=== PATIENT | female | born 1975 | race Caucasian/White ===

== ENCOUNTER 2016-07-23 17:01 | Emergency (ER) | payer SELFPAY ==
[2016-07-23 18:03] LABS: Hematocrit 47 % (35-47); Hemoglobin 15.4 g/dl (12.0-16.0); Mean Corpuscular HGB Conc 33 g/dl (31-36); Mean Corpuscular Hemoglobin 28 pg (27-31); Mean Corpuscular Volume 86 fL (80-97); Mean Platelet Volume 9 um3 (7.4-10.4); Red Blood Count 5.49 10^6/ul (4.0-5.4); Red Cell Distribution Width 13 % (10.5-15)
--- NOTE | 2016-07-23 18:13 | RAD ---
HISTORY: Headache COMPARISONS: June 15, 2010 TECHNIQUE: Multiple contiguous axial CT scans were obtained of the head without intravenous contrast. FINDINGS: HEMORRHAGE/INFARCT: There is no hemorrhage or acute infarct. MASSES/SHIFT: There is no mass or shift. EXTRA-AXIAL SPACES: There are no extra-axial fluid collections. SULCI AND VENTRICLES: The sulci and ventricles are normal in size and position for the patient's stated age. CEREBRUM: There are no focal parenchymal abnormalities. BRAINSTEM: There are no focal parenchymal abnormalities. CEREBELLUM: There are no focal parenchymal abnormalities. VESSELS: The vessels are grossly normal. PARANASAL SINUSES: The paranasal sinuses are clear. ORBITS: The orbits are unremarkable. BONES AND SOFT TISSUE: No bone or soft tissue abnormalities are noted. OTHER: None IMPRESSION: NO ACUTE INTRACRANIAL PATHOLOGY.
[2016-07-23 18:19] LABS: Albumin 4.6 g/dL (3.2-5.2); BUN/Creatinine Ratio 18.9 (8-20); Calcium 9.5 mg/dL (8.6-10.3); EGFR African American 112.4 (>60); EGFR Non-African American 87.4 (>60); Globulin 3.1 g/dL (2-4); Potassium 3.9 mmol/L (3.5-5.0); Total Bilirubin 0.4 mg/dL (0.2-1.0); Total Protein 7.7 g/dL (6.4-8.9)
[2016-07-23] MEDS ORDERED: Ketorolac INJ* 30 MG/ML 1 ML VIAL IV ONE (18:59)
[2016-07-23] MEDS ORDERED: Metoclopramide IV* 5 MG/ML 2 ML VIAL IV ONE (19:00)
[2016-07-23] MEDS ORDERED: SUMAtriptan SQ* 6 MG/0.5 ML VIAL SUBCUT ONE (19:00)
[2016-07-23 19:15] VITALS: BP 116/68
--- NOTE | 2016-07-23 22:44 | ED ---
Danielle Ann Rebecca, scribed for Alexandre Kinney MD on 07/23/16 at 1738 . Headache - HPI Summary HPI Summary: Pt is a 41 y/o F who presents to ED c/o CAO. CAO began suddenly at 1600, 1 hour ago, and has been constant since onset. CAO is in the frontal region with radiation into the neck. Pain is currently severe, ranked 10/10 and characterized as sharp. Sx aggravated and alleviated by nothing, unchanged by Sudafed and ASA. Additionally c/o rhinorrhea, vomiting (5x), dizziness and neck stiffness. Denies nasal congestion, photophobia, weakness, numbness and dental pain. No FHx seizures, migraines or headaches. Past records reviewed, Head CT in 2013 was unremarkable. - History Of Current Complaint Chief Complaint: EDHeadache Stated Complaint: HEADACHE Hx Obtained From: Patient Hx Last Menstrual Period: 06/13/15 Onset/Duration: Gradual Onset, Started hours ago - 1 hour ago Initially Headache Was: Initial Pain Scale(0-10)= - 10, Severe Currently Pain Is: Current Pain Scale(0-10)= - 10, Severe Timing: Constant Character: Sharp Location of Headache: Frontal Radiates to: Neck Aggravating Factor: Nothing Allevating Factors: Nothing Associated Signs And Symptoms: Dizziness, Vomiting - 5x, Neck Stiffness, Other ( Noted In Comments) - rhinorrhea - Allergies/Home Medications Allergies/Adverse Reactions: Allergies Allergy/AdvReac Type Severity Reaction Status Date / Time Ciprofloxacin [From Cipro] Allergy Severe Difficulty Verified 07/23/16 17:08 Breathing Hydrocodone Allergy Severe Difficulty Verified 07/23/16 17:08 Breathing Sulfa Drugs Allergy Severe Difficulty Verified 07/23/16 17:08 Breathing Amoxicillin Allergy Intermediate Rash Verified 07/23/16 17:08 Morphine Allergy Headache Verified 07/23/16 17:08 PMH/Surg Hx/FS Hx/Imm Hx Endocrine/Hematology History: Reports: Other Endocrine/Hematological Disorders - psoriasis Denies: Hx Anticoagulant Therapy, Hx Blood Disorders, Hx Diabetes, Hx Thyroid Disease, Hx Unexplained Bleeding Cardiovascular History: Denies: Hx Congestive Heart Failure, Hx Hypertension Respiratory History: Denies: Hx Asthma, Hx Chronic Obstructive Pulmonary Disease (COPD) GI History: Reports: Hx Gastroesophageal Reflux Disease, Hx Ulcer - gerd, Other GI Disorders - GERD History: Reports: Other Problems/Disorders - Hx OF KIDNEY STONES, OVARIAN CYSTS Denies: Hx Renal Disease Musculoskeletal History: Denies: Hx Rheumatoid Arthritis, Hx Osteoporosis Psychiatric History: Denies: Hx of Violent Episodes Against Others - Surgical History Surgery Procedure, Year, and Place: 2001 gall bladder removed, t&a - Immunization History Date of Tetanus Vaccine: PT STATES THAT SHE IS UNSURE Date of Influenza Vaccine: NONE Infectious Disease History: No Infectious Disease History: Denies: Hx Hepatitis, Hx Human Immunodeficiency Virus (HIV), History Other Infectious Disease, Traveled Outside the [place] in Last 30 Days - Family History Known Family History: Positive: None, Unknown, Diabetes - Social History Alcohol Use: Rare Hx Substance Use: No Substance Use Type: Reports: None Hx Tobacco Use: Yes Smoking Status (MU): Light Every Day Tobacco Smoker Type: Cigarettes Amount Used/How Often: 3 cigs day Have You Smoked in the Last Year: Yes Review of Systems Negative: Photophobia Positive: Nasal Discharge, Other - Denies nasal congestion. Negative: Dental Pain Positive: Vomiting - 5x Positive: Arthralgia - Neck stiffness Neurological: Other - Dizziness Positive: Headache - Frontal. Negative: Weakness, Numbness All Other Systems Reviewed And Are Negative: Yes Physical Exam - Summary Physical Exam Summary: General: Comfortable, pleasant, alert HEENT: Moist mucosa, no sinus percussion tenderness, on obvious large dental caries or gum swelling. Neck: soft, supple, no adenopathy, no edema, no nuchal rigidity Heart: S1, S2, RRR, no murmurs, rubs, or gallops Lungs: Clear to auscultation, breathing comfortable, no wheezes or rales Abdominal: Soft, flat, nontender Extremities: No edema, no calf tenderness, Negative kernig and brudzinski Neuro: Alert and oriented x 3, CN II-XII intact Psych: Logical, coherent Triage Information Reviewed: Yes Vital Signs On Initial Exam: Initial Vitals Temp Pulse Resp BP Pulse Ox 97.2 F 67 18 137/94 100 07/23/16 17:02 07/23/16 17:02 07/23/16 17:02 07/23/16 17:02 07/23/16 17:02 Vital Signs Reviewed: Yes Diagnostics - Vital Signs Vital Signs Temp Pulse Resp BP Pulse Ox 07/23/16 17:02 97.2 F 67 18 137/94 100 - Laboratory Lab Results: Lab Results 07/23/16 07/23/16 Range/Units 17:50 17:50 WBC 6.0 (3.5-10.8) 10^3/ul RBC 5.49 H (4.0-5.4) 10^6/ul Hgb 15.4 (12.0-16.0) g/dl Hct 47 (35-47) % MCV 86 (80-97) fL MCH 28 (27-31) pg MCHC 33 (31-36) g/dl RDW 13 (10.5-15) % Plt Count 148 L (150-450) 10^3/ul MPV 9 (7.4-10.4) um3 Neut % (Auto) 60.3 (38-83) % Lymph % (Auto) 30.7 (25-47) % [place] % (Auto) 5.7 (1-9) % Eos % (Auto) 2.1 (0-6) % Baso % (Auto) 1.2 (0-2) % Absolute Neuts (auto) 3.6 (1.5-7.7) 10^3/ul Absolute Lymphs (auto) 1.8 (1.0-4.8) 10^3/ul Absolute Monos (auto) 0.3 (0-0.8) 10^3/ul Absolute Eos (auto) 0.1 (0-0.6) 10^3/ul Absolute Basos (auto) 0.1 (0-0.2) 10^3/ul Absolute Nucleated RBC 0 10^3/ul Nucleated RBC % 0.1 Sodium 137 (133-145) mmol/L Potassium 3.9 (3.5-5.0) mmol/L Chloride 102 (101-111) mmol/L Carbon Dioxide 29 (22-32) mmol/L Anion Gap 6 (2-11) mmol/L BUN 14 (6-24) mg/dL Creatinine 0.74 (0.51-0.95) mg/dL Est GFR ( Amer) 112.4 (>60) Est GFR (Non-Af Amer) 87.4 (>60) BUN/Creatinine Ratio 18.9 (8-20) Glucose 135 H (70-100) mg/dL Calcium 9.5 (8.6-10.3) mg/dL Total Bilirubin 0.40 (0.2-1.0) mg/dL AST 22 (13-39) U/L ALT 24 (7-52) U/L Alkaline Phosphatase 91 (34-104) U/L Total Protein 7.7 (6.4-8.9) g/dL Albumin 4.6 (3.2-5.2) g/dL Globulin 3.1 (2-4) g/dL Albumin/Globulin Ratio 1.5 (1-3) Result Diagrams: 07/23/16 17:50 07/23/16 17:50 Lab Statement: Any lab studies that have been ordered have been reviewed, and results considered in the medical decision making process. - CT Brain CT CT Interpretation: No Acute Changes - NO ACUTE INTRACRANIAL PATHOLOGY. CT Interpretation Completed By: Radiologist Headache Course/Dx - Course Assessment/Plan: Frontal CAO, associated with nausea. She has no meningeal signs on exam. We considered subarachnoid hemorrhage, aneurysm, CVA, meningitis, but there is no clinical evidence to support these possibilities. She has no fever. Work up is totally normal, including CT. We do not see any signs of dental infection or sinusitis as well. - Diagnoses Differential Diagnosis/HQI/PQRI: Meningitis, Migraine, Subarachnoid Hemorrhage, Viral Syndrome Provider Diagnoses: Pharyngitis, Headache Discharge - Discharge Plan Condition: Good Disposition: HOME Prescriptions: Butalb/Acetamin/Caff TAB* [Fioricet TAB*] 1 tab PO Q6H PRN #20 tab MDD 4 PRN Reason: Headache Patient Education Materials: General Headache (ED) Referrals: Urban Gleason MD [Primary Care Provider] - 1 Day The documentation as recorded by the Danielle sanchez Rebecca accurately reflects the service I personally performed and the decisions made by , Alexandre Kinney MD.
== END 2016-07-23 19:14 | disposition home or self-care (01) ==
LOC: ED 17:01
DX: R42 Dizziness and giddiness (principal); J02.9 Acute pharyngitis, unspecified; R11.10 Vomiting, unspecified; F17.210 Nicotine dependence, cigarettes, uncomplicated; R51 Headache
CPT/HCPCS: 36415; 70450; 80053; 85025; 96374; 96375; 99282; J1885; J2765; J3030

== ENCOUNTER 2016-11-19 12:12 | Emergency (ER) | payer OTHER ==
[2016-11-19 12:21] VITALS: BP 136/64
--- NOTE | 2016-11-19 12:31 | UC ---
UC General HPI - HPI Summary HPI Summary: complaint of bump behind her ear and found a bump 2 days a go then found another bump on her neck then this morning found a bump on the top of ner head feesl more fatigied slgith left ear pain slight nasal congestion denies sore throat and cough slight headache last night and this morning relieved by ibuprofen - History of Current Complaint Hx Obtained From: Patient <Francy Brown - Last Filed: 11/19/16 13:00> <Margie Sidhu - Last Filed: 11/20/16 08:27> - History of Current Complaint Chief Complaint: [place] Stated Complaint: LUMPS ON HEAD AND NECK Time Seen by Provider: 11/19/16 12:19 - Allergy/Home Medications Allergies/Adverse Reactions: Allergies Allergy/AdvReac Type Severity Reaction Status Date / Time Ciprofloxacin [From Cipro] Allergy Severe Difficulty Verified 07/23/16 17:08 Breathing Hydrocodone Allergy Severe Difficulty Verified 07/23/16 17:08 Breathing Sulfa Drugs Allergy Severe Difficulty Verified 07/23/16 17:08 Breathing Amoxicillin Allergy Intermediate Rash Verified 07/23/16 17:08 Morphine Allergy Headache Verified 07/23/16 17:08 PMH/Surg Hx/FS Hx/Imm Hx Previously Healthy: No - psoriasis Other History Of: Negative For: Anticoagulant Therapy - Surgical History Surgical History: Yes Surgery Procedure, Year, and Place: 2001 gall bladder removed, t&a - Family History Known Family History: Positive: None, Unknown, Diabetes Negative: Cardiac Disease - Social History Occupation: Employed Full-time Lives: With Family Alcohol Use: Occasionally Substance Use Type: None Smoking Status (MU): Light Every Day Tobacco Smoker Type: Cigarettes Amount Used/How Often: 3 cigs day Have You Smoked in the Last Year: Yes Household Exposure Type: Cigarettes Cessation Counseling: Patient Advised to Stop <Francy Brown - Last Filed: 11/19/16 13:00> Review of Systems Constitutional: Negative Skin: Rash - chronic psoriasis throughout her body Eyes: Negative ENT: Ear Ache Respiratory: Negative Cardiovascular: Negative Gastrointestinal: Negative Genitourinary: Negative Motor: Negative Neurovascular: Negative Musculoskeletal: Negative Neurological: Headache Psychological: Negative All Other Systems Reviewed And Are Negative: Yes <Francy Brown - Last Filed: 11/19/16 13:00> Physical Exam Triage Information Reviewed: Yes Appearance: No Pain Distress, Well-Nourished, Obese Vital Signs: Initial Vital Signs Temp 96.9 F 11/19/16 12:17 Pulse 72 11/19/16 12:17 Resp 18 11/19/16 12:17 BP 136/64 11/19/16 12:17 Pulse Ox 100 11/19/16 12:17 Vital Signs Reviewed: Yes Eyes: Positive: Conjunctiva Clear ENT: Positive: Pharyngeal erythema, Nasal congestion, TM bulging - left. Negative: TM red Neck: Positive: Enlarged Nodes @ - left side of neck - enlarged lymph nodes posterior cervical chain-tender Respiratory: Positive: Lungs clear, Normal breath sounds, No respiratory distress, No accessory muscle use Cardiovascular: Positive: RRR, No Murmur, Pulses Normal Abdomen Description: Positive: Nontender, Soft, Distended Bowel Sounds: Positive: Present Musculoskeletal: Positive: No Edema Psychological Exam: Normal Skin: Positive: Other - psoriasis covering her arms legs and scalp left side of head - [id number] area of tenderness slight tenderness no induration <Francy Brown - Last Filed: 11/19/16 13:00> Vital Signs: Initial Vital Signs Temp 96.9 F 11/19/16 12:17 Pulse 72 11/19/16 12:17 Resp 18 11/19/16 12:17 BP 136/64 11/19/16 12:17 Pulse Ox 100 11/19/16 12:17 <Margie Sidhu - Last Filed: 11/20/16 08:27> Course/Dx - Course Course Of Treatment: exam completed. will start flonase for eustachion tube dysfunction. swollen tender lymph nodes on left side of neck - appears to be getting a URI, will followup with PCP - Differential Dx - Multi-Symptom Provider Diagnoses: lymphadenopathy- left posterior chain. left eustachion tube dysfunction. URI <Francy Brown - Last Filed: 11/19/16 13:00> Discharge <Francy Brown - Last Filed: 11/19/16 13:00> <Margie Sidhu - Last Filed: 11/20/16 08:27> - Discharge Plan Condition: Stable Disposition: HOME Prescriptions: Fluticasone NASAL SPRAY 50MCG* [Flonase NASAL SPRAY 50MCG*] 2 spray BOTH NARES DAILY #1 btl Patient Education Materials: Lymphadenopathy (ED) Forms: *Work Release Referrals: Urban Gleason MD [Primary Care Provider] - Additional Instructions: Please start flonase as directed you have some swollen lymph nodes in your neck these should improve as the infection you have resolves Increase fluids and rest Take acetaminophen or ibuprofen for fever or pain Please review your discharge instructions. If your symptoms do not improve please call your primary care provider or return to urgent care. Your blood pressure is pre-hypertensive reading. Please contact your primary care provider within 1 day -4 weeks for further evaluation Attestation Statement User Type: Provider - I was available for consult. This patient was seen by the advanced practice provider. The patient was not presented to, seen by, or examined by me.-Iftikhar <Margie Sidhu - Last Filed: 11/20/16 08:27>
== END 2016-11-19 13:10 | disposition home or self-care (01) ==
LOC: UCEAST 12:12
DX: L40.9 Psoriasis, unspecified (principal); H69.82 Other specified disorders of Eustachian tube, left ear; R59.1 Generalized enlarged lymph nodes; Z72.0 Tobacco use
CPT/HCPCS: 87651; 99212; G0463

== ENCOUNTER 2017-02-02 04:03 | Inpatient (IN) | payer SELFPAY ==
[2017-02-02] MEDS ORDERED: NS 0.9% 1000 ML* 1,000 ML IV ONE (04:48)
[2017-02-02] MEDS ORDERED: HYDROmorphone* 1 MG/ML 1 ML SYR IV SLOW PU ONE ×2 (05:07→06:17)
[2017-02-02] MEDS ORDERED: Ondansetron INJ* 2 MG/ML VIAL IV ONE (05:08)
[2017-02-02 05:17] LABS: Hematocrit 44 % (35-47); Hemoglobin 14.3 g/dl (12.0-16.0); Mean Corpuscular HGB Conc 33 g/dl (31-36); Mean Corpuscular Hemoglobin 29 pg (27-31); Mean Corpuscular Volume 88 fL (80-97); Mean Platelet Volume 9 um3 (7.4-10.4); Red Blood Count 4.98 10^6/ul (4.0-5.4); Red Cell Distribution Width 14 % (10.5-15); White Blood Count 6.1 10^3/ul (3.5-10.8)
[2017-02-02 05:28] LABS: ALT 45 U/L (7-52); AST 34 U/L (13-39); Albumin 3.7 g/dL (3.2-5.2); Alkaline Phosphatase 71 U/L (34-104); Anion Gap 4 mmol/L (2-11); BUN/Creatinine Ratio 14.7 (8-20); Blood Urea Nitrogen 11 mg/dL (6-24); C Reactive Protein < 1.00 mg/L (< 5.00); CO2 Carbon Dioxide 27 mmol/L (22-32); Calcium 8.8 mg/dL (8.6-10.3); Chloride 105 mmol/L (101-111); EGFR African American 110.6 (>60); Globulin 2.6 g/dL (2-4); Glucose 128 mg/dL (70-100); Lipase 30 U/L (11.0-82.0); Sodium 136 mmol/L (133-145); Total Protein 6.3 g/dL (6.4-8.9)
[2017-02-02 05:30] LABS: Urine Bacteria Absent (Absent); Urine Bilirubin Negative (Negative); Urine Glucose Negative (Negative); Urine Nitrite Negative (Negative)
[2017-02-02] MEDS ORDERED: cefTRIAXone(*) 1 GM in NS 0.9% 50 ML* 50 ML IVPB ONE (06:17)
--- NOTE | 2017-02-02 06:45 | ED ---
Mian Ann SooYoung, scribed for Dirk Delgado MD on 02/02/17 at 0436 . GI/ HPI - HPI Summary HPI Summary: A 41 y/o F presents to ED with c/o diffuse abd pain onset for past few days. Pt saw her PCP four days ago for a severe UTI that she might have had for almost a month. Pt taking Macrobid. Associated sx: fever, chills, n/v. Alleviating factors: Tylenol, mildly. Denies PMHx DM, blood thinners. Does not think she's . - History of Current Complaint Chief Complaint: EDUrogenitalProblems Time Seen by Provider: 02/02/17 04:22 Stated Complaint: KIDNEY PAIN Hx Obtained From: Patient Hx Last Menstrual Period: 2016, not reg periods Onset/Duration: Started Days Ago, Still Present Timing: Constant Severity: Severe Current Severity: Severe Pain Intensity: 10 - out of 10 Location of Pain: Diffuse Associated Signs and Symptoms: Positive: Nausea, Vomiting, Fever, Chills - Allergy/Home Medications Allergies/Adverse Reactions: Allergies Allergy/AdvReac Type Severity Reaction Status Date / Time Ciprofloxacin [From Cipro] Allergy Severe Difficulty Verified 07/23/16 17:08 Breathing Hydrocodone Allergy Severe Difficulty Verified 07/23/16 17:08 Breathing Sulfa Drugs Allergy Severe Difficulty Verified 07/23/16 17:08 Breathing Amoxicillin Allergy Intermediate Rash Verified 07/23/16 17:08 Morphine Allergy Headache Verified 07/23/16 17:08 PMH/Surg Hx/FS Hx/Imm Hx Previously Healthy: No Endocrine/Hematology History: Reports: Other Endocrine/Hematological Disorders - psoriasis Denies: Hx Anticoagulant Therapy, Hx Blood Disorders, Hx Diabetes, Hx Thyroid Disease, Hx Unexplained Bleeding Cardiovascular History: Denies: Hx Congestive Heart Failure, Hx Hypertension Respiratory History: Denies: Hx Asthma, Hx Chronic Obstructive Pulmonary Disease (COPD) GI History: Reports: Hx Gastroesophageal Reflux Disease, Hx Ulcer - gerd, Other GI Disorders - GERD History: Reports: Other Problems/Disorders - Hx OF KIDNEY STONES, OVARIAN CYSTS Denies: Hx Renal Disease Musculoskeletal History: Denies: Hx Rheumatoid Arthritis, Hx Osteoporosis Psychiatric History: Denies: Hx of Violent Episodes Against Others - Surgical History Surgery Procedure, Year, and Place: 2001 gall bladder removed, t&a - Immunization History Date of Tetanus Vaccine: PT STATES THAT SHE IS UNSURE Date of Influenza Vaccine: NONE Infectious Disease History: No Infectious Disease History: Denies: Hx Hepatitis, Hx Human Immunodeficiency Virus (HIV), History Other Infectious Disease, Traveled Outside the [place] in Last 30 Days - Family History Known Family History: Positive: Diabetes Negative: Cardiac Disease - Social History Occupation: Employed Full-time Lives: With Family Alcohol Use: Occasionally Hx Substance Use: No Substance Use Type: Reports: None Hx Tobacco Use: Yes Smoking Status (MU): Light Every Day Tobacco Smoker Type: Cigarettes Amount Used/How Often: 3 cigs day Have You Smoked in the Last Year: Yes Review of Systems Positive: Fever, Chills Positive: Abdominal Pain, Vomiting, Nausea All Other Systems Reviewed And Are Negative: Yes Physical Exam - Summary Physical Exam Summary: The patient is well-nourished in no acute distress and in no acute pain. The skin is warm and dry and skin color reflects adequate perfusion. Rash indicative of psoriasis on face, body. HEENT: The head is normocephalic and atraumatic. The pupils are equal and reactive. The conjunctivae are clear and without drainage. Nares are patent and without drainage. Mouth reveals moist mucous membranes and the throat is without erythema and exudate. The external ears are intact. The ear canals are patent and without drainage. The tympanic membranes are intact. Neck is supple with full range of motion and non-tender. There are no carotid bruits. There is no neck vein distension. Respiratory: Chest is non-tender. Lungs are clear to auscultation and breath sounds are symmetrical and equal. Cardiovascular: Hear is regular rate and rhythm. There is no murmur or rub auscultated. Pitting edema. Pulses are symmetrical and equal. Abdomen: The abdomen is soft, obese and diffusely tender. R CVA tenderness. There are normal bowel sounds heard in all four quadrants and there is no organomegaly palpated. Musculoskeletal: There is no back pain noted. Extremities are non-tender with full range of motion. There is good capillary refill. Pitting edema. Neurological: Patient is alert and oriented to person, place and time. The patient has symmetrical motor strength in all four extremities. Cranial nerves are grossly intact. Deep tendon reflexes are symmetrical and equal in all four extremities. Psychiatric: The patient has an appropriate affect and does not exhibit any anxiety or depression. Triage Information Reviewed: Yes Vital Signs On Initial Exam: Initial Vitals Temp Pulse Resp BP Pulse Ox 96.7 F 71 16 125/67 95 02/02/17 04:07 02/02/17 04:07 02/02/17 04:07 02/02/17 04:07 02/02/17 04:07 Vital Signs Reviewed: Yes - Lili Coma Scale Coma Scale Total: 15 Diagnostics - Vital Signs Vital Signs Temp Pulse Resp BP Pulse Ox 02/02/17 04:30 63 96 02/02/17 04:07 96.7 F 71 16 125/67 95 - Laboratory Lab Results: Lab Results 02/02/17 02/02/17 02/02/17 Range/Units 05:01 05:01 05:01 WBC 6.1 (3.5-10.8) 10^3/ul RBC 4.98 (4.0-5.4) 10^6/ul Hgb 14.3 (12.0-16.0) g/dl Hct 44 (35-47) % MCV 88 (80-97) fL MCH 29 (27-31) pg MCHC 33 (31-36) g/dl RDW 14 (10.5-15) % Plt Count 182 (150-450) 10^3/ul MPV 9 (7.4-10.4) um3 Neut % (Auto) 56.0 (38-83) % Lymph % (Auto) 30.0 (25-47) % [place] % (Auto) 7.6 (1-9) % Eos % (Auto) 4.1 (0-6) % Baso % (Auto) 2.3 H (0-2) % Absolute Neuts (auto) 3.4 (1.5-7.7) 10^3/ul Absolute Lymphs (auto) 1.8 (1.0-4.8) 10^3/ul Absolute Monos (auto) 0.5 (0-0.8) 10^3/ul Absolute Eos (auto) 0.3 (0-0.6) 10^3/ul Absolute Basos (auto) 0.1 (0-0.2) 10^3/ul Absolute Nucleated RBC 0 10^3/ul Nucleated RBC % 0.1 Sodium 136 (133-145) mmol/L Potassium 4.0 (3.5-5.0) mmol/L Chloride 105 (101-111) mmol/L Carbon Dioxide 27 (22-32) mmol/L Anion Gap 4 (2-11) mmol/L BUN 11 (6-24) mg/dL Creatinine 0.75 (0.51-0.95) mg/dL Est GFR ( Amer) 110.6 (>60) Est GFR (Non-Af Amer) 86.0 (>60) BUN/Creatinine Ratio 14.7 (8-20) Glucose 128 H (70-100) mg/dL Lactic Acid (0.5-2.0) mmol/L Calcium 8.8 (8.6-10.3) mg/dL Total Bilirubin 0.40 (0.2-1.0) mg/dL AST 34 (13-39) U/L ALT 45 (7-52) U/L Alkaline Phosphatase 71 (34-104) U/L C-Reactive Protein < 1.00 (< 5.00) mg/L Total Protein 6.3 L (6.4-8.9) g/dL Albumin 3.7 (3.2-5.2) g/dL Globulin 2.6 (2-4) g/dL Albumin/Globulin Ratio 1.4 (1-3) Lipase 30 (11.0-82.0) U/L Beta HCG, Quant < 0.60 mIU/mL Urine Color Yellow Urine Appearance Cloudy Urine pH 5.0 (5-9) Ur Specific [place] 1.027 (1.010-1.030) Urine Protein Negative (Negative) Urine Ketones Negative (Negative) Urine Blood Negative (Negative) Urine Nitrate Negative (Negative) Urine Bilirubin Negative (Negative) Urine Urobilinogen Negative (Negative) Ur Leukocyte Esterase 3+ H (Negative) Urine WBC (Auto) 3+(>20/hpf) H (Absent) Urine RBC (Auto) 3+(>10/hpf) H (Absent) Ur Squamous Epith Cells Present H (Absent) Calcium Oxalate Crystal Present H (Absent) Urine Bacteria Absent (Absent) Urine Glucose Negative (Negative) Urine Ascorbic Acid * H (Negative) 02/02/17 Range/Units 05:01 WBC (3.5-10.8) 10^3/ul RBC (4.0-5.4) 10^6/ul Hgb (12.0-16.0) g/dl Hct (35-47) % MCV (80-97) fL MCH (27-31) pg MCHC (31-36) g/dl RDW (10.5-15) % Plt Count (150-450) 10^3/ul MPV (7.4-10.4) um3 Neut % (Auto) (38-83) % Lymph % (Auto) (25-47) % [place] % (Auto) (1-9) % Eos % (Auto) (0-6) % Baso % (Auto) (0-2) % Absolute Neuts (auto) (1.5-7.7) 10^3/ul Absolute Lymphs (auto) (1.0-4.8) 10^3/ul Absolute Monos (auto) (0-0.8) 10^3/ul Absolute Eos (auto) (0-0.6) 10^3/ul Absolute Basos (auto) (0-0.2) 10^3/ul Absolute Nucleated RBC 10^3/ul Nucleated RBC % Sodium (133-145) mmol/L Potassium (3.5-5.0) mmol/L Chloride (101-111) mmol/L Carbon Dioxide (22-32) mmol/L Anion Gap (2-11) mmol/L BUN (6-24) mg/dL Creatinine (0.51-0.95) mg/dL Est GFR ( Amer) (>60) Est GFR (Non-Af Amer) (>60) BUN/Creatinine Ratio (8-20) Glucose (70-100) mg/dL Lactic Acid 1.9 (0.5-2.0) mmol/L Calcium (8.6-10.3) mg/dL Total Bilirubin (0.2-1.0) mg/dL AST (13-39) U/L ALT (7-52) U/L Alkaline Phosphatase (34-104) U/L C-Reactive Protein (< 5.00) mg/L Total Protein (6.4-8.9) g/dL Albumin (3.2-5.2) g/dL Globulin (2-4) g/dL Albumin/Globulin Ratio (1-3) Lipase (11.0-82.0) U/L Beta HCG, Quant mIU/mL Urine Color Urine Appearance Urine pH (5-9) Ur Specific [place] (1.010-1.030) Urine Protein (Negative) Urine Ketones (Negative) Urine Blood (Negative) Urine Nitrate (Negative) Urine Bilirubin (Negative) Urine Urobilinogen (Negative) Ur Leukocyte Esterase (Negative) Urine WBC (Auto) (Absent) Urine RBC (Auto) (Absent) Ur Squamous Epith Cells (Absent) Calcium Oxalate Crystal (Absent) Urine Bacteria (Absent) Urine Glucose (Negative) Urine Ascorbic Acid (Negative) Result Diagrams: 02/02/17 05:01 02/02/17 05:01 Lab Statement: Any lab studies that have been ordered have been reviewed, and results considered in the medical decision making process. Re-Evaluation - Re-Evaluation 1 Re-Evaluation Time: 06:16 Change: Unchanged Comment: Discussing results with pt. Pt still in pain. On re-exam, pt's pain is more focalized to R flank. She states PMHx: kidney stones, without prev surgery. GIGU Course/Dx - Course Course Of Treatment: Pt is a 41 y/o F presenting to ED with c/o diffuse abd pain onset for past few days. Pt saw her PCP four days ago for a severe UTI that she might have had for almost a month. Pt taking Macrobid. Associated sx: fever, chills, n/v. Alleviating factors: Tylenol, mildly. Denies DM, blood thinners. Does not think she's . Pt given fluids, Zofran, Dilauded in ED. Bloodwork is without any significant abnormality. UA is positive for UTI as expected. SO to Dr. Carter at shift change pending CT result. - Diagnoses Differential Diagnoses - Female: Renal Colic Provider Diagnoses: Right flank pain, UTI (urinary tract infection) Discharge - Discharge Plan Condition: Stable Disposition: OTHER Discharge Disposition Comment: SO to Dr. Carter at shift change pending CT result Referrals: Urban Gleason MD [Primary Care Provider] - The documentation as recorded by the Mian sanchez SooYoung accurately reflects the service I personally performed and the decisions made by me, Dirk Delgado MD.
[2017-02-02] MEDS ORDERED: Fluconazole 100 MG TAB* TAB PO ONE (07:47)
--- NOTE | 2017-02-02 07:56 | RAD ---
INDICATION: Right flank pain COMPARISON: CT April 08, 2016 TECHNIQUE: Noncontrast axial source images were acquired from the level hemidiaphragms to the symphysis pubis as part of CT imaging for renal stone. Lung bases: The lung bases are clear. Liver: The liver is enlarged with findings of hepatic steatosis. Noncontrast imaging shows no evidence of a hepatic mass or ductal dilatation. Gallbladder: Cholecystectomy. Spleen: The spleen is normal in size. The noncontrast CT appearance is normal. Pancreas: Noncontrast imaging shows no pancreatic mass or ductal dilitation. Adrenal glands: No masses are identified. Kidneys/Bladder: There is no evidence of urolithiasis or CT evidence of hydronephrosis. Noncontrast imaging shows no evidence of a renal mass. There are some limitations due to patient size with resultant artifact from the patient touching the side of the gantry The bladder is unremarkable. Adenopathy: There is no evidence of intraperitoneal or retroperitoneal adenopathy. Evaluation is limited without oral contrast. Fluid collections: There are no free or localized fluid collections. Vessels: The aorta and iliac vessels are normal in caliber. There are no significant atherosclerotic changes. The IVC appears normal Pelvic organs: The uterus and adnexa appear normal GI tract: Evaluation of the bowel is limited without oral contrast. The stomach, small bowel, and lower GI tract appear grossly normal. There are no obstructive findings. The appendix is visualized and appears normal. Soft tissues: No soft tissue abnormalities of the extraperitoneal abdomen or pelvis are identified. Osseous structures: There are no acute osseous findings. IMPRESSION: NO CT EVIDENCE OF UROLITHIASIS. NORMAL APPENDIX. NO MASS OR INFLAMMATORY CHANGE.
[2017-02-02] MEDS ORDERED: HYDROmorphone* 1 MG/ML 1 ML SYR IV ONE (08:41)
[2017-02-02] MEDS ORDERED: Morphine INJ* 2 MG/ML 1 ML SYRINGE IV PRN (09:14)
[2017-02-02] MEDS ORDERED: Acetaminophen TAB* 325 MG PO PRN (09:14)
--- NOTE | 2017-02-02 09:21 | ED ---
IPatricia Edward, scribed for Miller Carter MD on 02/02/17 at 0710 . Progress - Progress Note Progress Note: Signed out from Dr. Delgado. Pending CT results. ABD/PEL CT SHOWS NO CT EVIDENCE OF UROLITHIASIS. NORMAL APPENDIX. NO MASS OR INFLAMMATORY CHANGE. Discussed case with Dr. Olmstead @ 08:45. Re-Evaluation - Re-Evaluation 1 Re-Evaluation Time: 06:16 Change: Unchanged Comment: Discussing results with pt. Pt still in pain. On re-exam, pt's pain is more focalized to R flank. She states PMHx: kidney stones, without prev surgery. 2 Re-Evaluation Time: 07:43 Comment: Discussed lab and urine results. Pt states her pain is at a 6/10 more on her R side. Pt states she has a yeast infection. Course/Dx - Course Course Of Treatment: DISCUSSED RESULTS WITH PATIENT/. PT HAS ALLERGIES TO CIPRO, SULFA, AND AMOX WHICH LIMITS CHOICE OF PO ABX. PAIN HAS REQUIRED 3 DOSE OF IV DILAUIDID. ADMIT HOSPITALIST FOR FAILED OUT PT PO ABX TREATMENT, IV ABX, PAIN CONTROL. PELVIC EXAM DONE WITH POSITIVE VAGINAL DISCHARGE. ADMIT HOSPITALIST STABLE. - Diagnoses Provider Diagnoses: Right flank pain, UTI (urinary tract infection), Vaginitis The documentation as recorded by the Patricia sanchez Edward accurately reflects the service I personally performed and the decisions made by me, Miller Carter MD.
[2017-02-02] MEDS: NS 0.9% 1000 ML* 1,000 ML IV SCH (10:56)
[2017-02-02] MEDS ORDERED: Nystatin TOP POWDER* 15 GM BTL TOPICAL SCH (11:00)
[2017-02-02] MEDS: Nystatin TOP POWDER* 15 GM BTL TOPICAL SCH ×2 (13:38→21:02)
[2017-02-02] MEDS: Ondansetron INJ* 2 MG/ML VIAL IV PRN (13:39)
--- NOTE | 2017-02-02 16:13 | HP ---
CC: Dr. Urban Gleason * HISTORY AND PHYSICAL: DATE OF ADMISSION: 02/02/17 PRIMARY CARE PROVIDER: Dr. Urban Gleason ATTENDING PHYSICIAN: Dr. Dolly Smith * (dictated by Gaby Jansen NP). CHIEF COMPLAINT: Right flank pain. HISTORY OF PRESENT ILLNESS: Ms. Rutherford is a 41-year-old female with a past medical history significant for psoriasis, GERD, kidney stones and obesity, who presents to the emergency room today with complaints of right flank pain, vaginal discharge, fever, chills, nausea, vomiting. The patient states that she was seen by her primary care provider 4 days ago, was diagnosed with urinary tract infection and was started on Macrobid. The patient states that yesterday she started developing a right flank pain and left flank pressure. She also noticed a vaginal discharge that started yesterday. The patient reports that her fever was at a max of 100.1. She denies any chest pain, shortness of breath. She also reports some diarrhea last night. She also has a rash under both breasts and in her abdominal folds. Due to the patient continuing to not feel well after being started on antibiotics, she presented to the emergency room for further evaluation of her symptoms. While in the emergency room, the patient was given a dose of IV ceftriaxone, Diflucan, IV Dilaudid for pain, Zofran, and normal saline. She had a pelvic exam and cultures were sent as the patient has a history of Gardnerella BV in the past. Hospitalists were asked to evaluate the patient for admission. PAST MEDICAL HISTORY: 1. Psoriasis. 2. GERD. 3. Kidney stones. 4. Obesity. PAST SURGICAL HISTORY: 1. Status post cholecystectomy in 2001. 2. Status post tonsillectomy and adenoidectomy. HOME MEDICATIONS: Include: 1. Triamcinolone 0.1% topical twice daily to areas of body with psoriasis except for the face. 2. Omeprazole 40 mg oral daily at bedtime. 3. Ibuprofen 600 mg oral every 6 hours as needed for pain. 4. Flonase 2 sprays to both nares daily. 5. Acetaminophen 1000 mg oral every 6 hours as needed for fever or pain. ALLERGIES: CIPRO causes gasping for air, HYDROCODONE causes gasping for air, SULFA causes gasping for air, AMOXICILLIN causes a rash and leg swelling, MORPHINE causes a headache, and TORADOL causes worsening of psoriasis. FAMILY HISTORY: The patient denies any family history of coronary artery disease. The patient's father and brother have a history of type 2 diabetes mellitus. The patient has a family history of stomach cancer on both her maternal and paternal side. She has maternal aunts, one with breast cancer and one with cervical cancer. SOCIAL HISTORY: The patient is a current smoker, smoking approximately 3 cigarettes a day. She has a 23-year smoking history and reports that she has cut down over the years. The patient occasionally drinks alcohol. She denies recreational drug use. She is employed full-time. Her parents Tomy and Vanessa Rutherford will be her surrogate decision makers in the event she is unable to make decisions for herself. REVIEW OF SYSTEMS: I performed a 14-point review of systems. All the pertinent positives and negatives are mentioned in the history of present illness. The remaining review of systems are negative. PHYSICAL EXAMINATION GENERAL APPEARANCE: The patient is alert, pleasant, appears to be in no acute distress. VITAL SIGNS: Temperature 96.7, heart rate 82, respiratory rate 18, O2 sat 96% on room air, blood pressure 98/66. HEENT: Normocephalic, atraumatic. Pupils are equal and reactive to light. Extraocular movements are intact. RESPIRATORY: There is no accessory muscle use and the lungs are clear to auscultation bilateral. CARDIOVASCULAR: Regular rate and rhythm. S1 and S2 present. There is no murmurs, rubs, or gallops heard. ABDOMEN: Enlarged, soft, tender in the lower quadrants and suprapubic area. There are bowel sounds present x4. The patient also has right CVA tenderness. EXTREMITIES: There is trace bilateral lower extremity edema. DP and PT pulses are 2+ and symmetric. MUSCULOSKELETAL: There is no clubbing or cyanosis noted. The patient exhibits good strength in all extremities. NEUROLOGIC: The patient is alert and oriented x4. Cranial nerves II through XII are grossly intact. PSYCHOLOGICAL: The patient is calm and cooperative. SKIN: The patient has multiples areas of psoriasis plaques including her face, arms, legs, and torso. The patient also has a yeast-like rash under her breast and in her abdominal folds and groin. DIAGNOSTIC STUDIES/LABORATORY DATA: Sodium 136, potassium 4.0, chloride 105, CO2 of 27, BUN 11, creatinine 0.75, glucose 128. White blood cell count 6.1, hemoglobin 14.3, hematocrit 44, and platelet count 182. Urinalysis is significant for 3+ leukocyte esterase, 3+ rbc's, 3+ wbc's, squamous epithelial cells present, calcium oxalate crystals present, and urine ascorbic acid present. Abdomen and pelvis CT from today. Radiologist impression; no CT evidence of urolithiasis. Normal appendix. No mass or inflammatory changes. IMPRESSION: Ms. Rutherford is a 41-year-old female with past medical history significant for psoriasis, gastroesophageal reflux disease, kidney stones, and obesity, who presents to the emergency room with complaints of right flank pain after failing outpatient treatment for urinary tract infection. She will be admitted as an observation for urinary tract infection. ASSESSMENT/PLAN: 1. Urinary tract infection. Urine cultures currently pending. She was on Macrobid for outpatient treatment. For now, we will place the patient on IV ceftriaxone. 2. Vaginal discharge. The patient has been given a dose of Diflucan for a possible yeast infection. The patient had vaginal cultures obtained while in the emergency room as she has been positive for Gardnerella BV in the past. 3. Gastroesophageal reflux disease. The patient will be continued on her home omeprazole. 4. Psoriasis. The patient will be continued on her home triamcinolone. 5. Obesity. The patient's BMI is 54. 6. Fluids, electrolytes, and nutrition. Regular diet. 7. Code status. Full code. 8. DVT prophylaxis. The patient is at a low risk and will be encouraged to ambulate. 9. Disposition. Observation. TIME SPENT: Time for this admission was approximately 60 minutes and greater than half of that was spent with the patient discussing medications, past medical history, and the events leading up to her arrival today and performing a physical examination. The case has been reviewed with the attending, Dr. Smith, who agrees with the plan of care. Reviewed by NING AVENDANO 02/02/17 1936 [id number]/[facility] #: [id number] MTDElissa
[2017-02-02] MEDS ORDERED: metroNIDAZOLE TAB* 250 MG PO ONE (17:27)
[2017-02-02] MEDS: HYDROmorphone* 1 MG/ML 1 ML SYR IV SLOW PU PRN ×2 (17:45→22:27)
--- NOTE | 2017-02-02 19:16 | PN ---
Hospitalist Progress Note Vaginal culture shows Trichomoniasis. Pt notified about the culture results. Pt given a 1 time dose of metronidazole 2 g.
[2017-02-02] MEDS: Omeprazole CAP* 20 MG PO SCH (20:52)
[2017-02-02] MEDS: TRIAMCINOLONE 0.1% TOPICAL SCH (20:54)
[2017-02-02] MEDS ORDERED: Triamcinolone 0.1% CREAM (NF) 15 GM TUBE TOPICAL SCH (21:00)
[2017-02-02] MEDS ORDERED: TRIAMCINOLONE 0.1% TOPICAL SCH (21:00)
[2017-02-03] MEDS: NS 0.9% 1000 ML* 1,000 ML IV SCH (02:45)
[2017-02-03] MEDS: HYDROmorphone* 1 MG/ML 1 ML SYR IV SLOW PU PRN ×4 (02:49→19:53)
[2017-02-03] MEDS ORDERED: cefTRIAXone(*) 1 GM in NS 0.9% 50 ML* 50 ML IVPB SCH (09:00)
[2017-02-03] MEDS: Ondansetron INJ* 2 MG/ML VIAL IV PRN ×2 (09:23→19:54)
[2017-02-03] MEDS: Fluticasone NASAL SPRAY 50MCG* 16 gm SPRAY BTL BOTH NARES SCH (09:24)
[2017-02-03] MEDS: TRIAMCINOLONE 0.1% TOPICAL SCH ×2 (09:26→21:50)
[2017-02-03] MEDS: Nystatin TOP POWDER* 15 GM BTL TOPICAL SCH ×3 (09:26→21:51)
--- NOTE | 2017-02-03 12:29 | PN ---
Subjective Date of Service: 02/03/17 Interval History: No change in dysuria. Itching on back started after 2nd dose of ceftriaxone. Objective Active Medications: Acetaminophen (Tylenol Tab*) 650 mg PO Q6H PRN PRN Reason: pain/fever Doxycycline Hyclate (Vibramycin Cap(*)) 100 mg PO BID [facility] Fluticasone Propionate (Flonase Nasal Benedict 50mcg*) 2 spray BOTH NARES DAILY [facility] Last Admin: 02/03/17 09:24 Dose: 2 spray Hydromorphone HCl (Dilaudid Iv*) 1 mg IV SLOW PU Q4H PRN PRN Reason: PAIN Last Admin: 02/03/17 09:20 Dose: 1 mg Sodium Chloride (Ns 0.9% 1000 Ml*) 1,000 mls @ 100 mls/hr IV PER RATE [facility] Last Admin: 02/03/17 02:45 Dose: 100 mls/hr Ibuprofen (Motrin Tab*) 600 mg PO Q6H PRN PRN Reason: PAIN Metronidazole (Flagyl Tab*) 500 mg PO QID [facility] Nystatin (Nystatin Top Powder*) 1 applic TOPICAL TID [facility] Last Admin: 02/03/17 09:26 Dose: 1 applic Omeprazole (Prilosec Cap*) 40 mg PO BEDTIME [facility] Last Admin: 02/02/17 20:52 Dose: 40 mg Ondansetron HCl (Zofran Inj*) 4 mg IV Q6H PRN PRN Reason: NAUSEA Last Admin: 02/03/17 09:23 Dose: 4 mg Triamcinolone Acetonide (Kenolog 0.1% Oint(Nf)) 1 applic TOPICAL BID [facility] Last Admin: 02/03/17 09:26 Dose: 1 applic Vital Signs 02/02/17 02/02/17 02/02/17 13:37 14:37 16:21 Temperature 98.3 F Pulse Rate 69 Respiratory 14 12 16 Rate Blood Pressure 112/56 (mmHg) O2 Sat by Pulse 97 Oximetry 02/02/17 02/02/17 02/02/17 17:45 20:45 21:00 Temperature 98.4 F Pulse Rate 69 Respiratory 14 16 18 Rate Blood Pressure 128/54 (mmHg) O2 Sat by Pulse 97 Oximetry 02/02/17 02/02/17 02/03/17 22:27 23:45 02:49 Temperature 98.2 F Pulse Rate 69 Respiratory 16 17 16 Rate Blood Pressure 103/57 (mmHg) O2 Sat by Pulse 97 Oximetry 02/03/17 02/03/17 02/03/17 03:49 05:10 07:27 Temperature 97.9 F 97.6 F Pulse Rate 71 59 Respiratory 16 16 23 Rate Blood Pressure 125/67 120/60 (mmHg) O2 Sat by Pulse 98 100 Oximetry 02/03/17 02/03/17 02/03/17 08:00 09:20 10:20 Temperature Pulse Rate Respiratory 14 14 14 Rate Blood Pressure (mmHg) O2 Sat by Pulse Oximetry Oxygen Devices in Use Now: None Appearance: Alert, sitting up in bed. Mvoing her legs, looks uncomfortable. Neck: NL Appearance and Movements; NL JVP, No Thyroid Enlargement, Masses Respiratory: Symmetrical Chest Expansion and Respiratory Effort, Clear to Auscultation, Clear to Percussion Cardiovascular: NL Sounds; No Murmurs; No JVD, RRR, No Edema, - Extremities: No Edema, No Clubbing, Cyanosis Skin: No Nodules or Sclerosis - innumerable small psoriatic plaques trunk, abd, and all extremities and face. Rash on face back and arms seems redder than on trunk and legs. Neurological: Alert and Oriented x 3, NL Sensation Result Diagrams: 02/02/17 05:01 02/02/17 05:01 Additional Lab and Data: Lab Results 02/02/17 02/02/17 02/02/17 Range/Units 05:01 05:01 05:01 WBC 6.1 (3.5-10.8) 10^3/ul RBC 4.98 (4.0-5.4) 10^6/ul Hgb 14.3 (12.0-16.0) g/dl Hct 44 (35-47) % MCV 88 (80-97) fL MCH 29 (27-31) pg MCHC 33 (31-36) g/dl RDW 14 (10.5-15) % Plt Count 182 (150-450) 10^3/ul MPV 9 (7.4-10.4) um3 Neut % (Auto) 56.0 (38-83) % Lymph % (Auto) 30.0 (25-47) % [place] % (Auto) 7.6 (1-9) % Eos % (Auto) 4.1 (0-6) % Baso % (Auto) 2.3 H (0-2) % Absolute Neuts (auto) 3.4 (1.5-7.7) 10^3/ul Absolute Lymphs (auto) 1.8 (1.0-4.8) 10^3/ul Absolute Monos (auto) 0.5 (0-0.8) 10^3/ul Absolute Eos (auto) 0.3 (0-0.6) 10^3/ul Absolute Basos (auto) 0.1 (0-0.2) 10^3/ul Absolute Nucleated RBC 0 10^3/ul Nucleated RBC % 0.1 Sodium 136 (133-145) mmol/L Potassium 4.0 (3.5-5.0) mmol/L Chloride 105 (101-111) mmol/L Carbon Dioxide 27 (22-32) mmol/L Anion Gap 4 (2-11) mmol/L BUN 11 (6-24) mg/dL Creatinine 0.75 (0.51-0.95) mg/dL Est GFR ( Amer) 110.6 (>60) Est GFR (Non-Af Amer) 86.0 (>60) BUN/Creatinine Ratio 14.7 (8-20) Glucose 128 H (70-100) mg/dL Lactic Acid (0.5-2.0) mmol/L Calcium 8.8 (8.6-10.3) mg/dL Total Bilirubin 0.40 (0.2-1.0) mg/dL AST 34 (13-39) U/L ALT 45 (7-52) U/L Alkaline Phosphatase 71 (34-104) U/L C-Reactive Protein < 1.00 (< 5.00) mg/L Total Protein 6.3 L (6.4-8.9) g/dL Albumin 3.7 (3.2-5.2) g/dL Globulin 2.6 (2-4) g/dL Albumin/Globulin Ratio 1.4 (1-3) Lipase 30 (11.0-82.0) U/L Beta HCG, Quant < 0.60 mIU/mL Urine Color Yellow Urine Appearance Cloudy Urine pH 5.0 (5-9) Ur Specific [place] 1.027 (1.010-1.030) Urine Protein Negative (Negative) Urine Ketones Negative (Negative) Urine Blood Negative (Negative) Urine Nitrate Negative (Negative) Urine Bilirubin Negative (Negative) Urine Urobilinogen Negative (Negative) Ur Leukocyte Esterase 3+ H (Negative) Urine WBC (Auto) 3+(>20/hpf) H (Absent) Urine RBC (Auto) 3+(>10/hpf) H (Absent) Ur Squamous Epith Cells Present H (Absent) Calcium Oxalate Crystal Present H (Absent) Urine Bacteria Absent (Absent) Urine Glucose Negative (Negative) Urine Ascorbic Acid * H (Negative) 02/02/17 Range/Units 05:01 WBC (3.5-10.8) 10^3/ul RBC (4.0-5.4) 10^6/ul Hgb (12.0-16.0) g/dl Hct (35-47) % MCV (80-97) fL MCH (27-31) pg MCHC (31-36) g/dl RDW (10.5-15) % Plt Count (150-450) 10^3/ul MPV (7.4-10.4) um3 Neut % (Auto) (38-83) % Lymph % (Auto) (25-47) % [place]ett % (Auto) (1-9) % Eos % (Auto) (0-6) % Baso % (Auto) (0-2) % Absolute Neuts (auto) (1.5-7.7) 10^3/ul Absolute Lymphs (auto) (1.0-4.8) 10^3/ul Absolute Monos (auto) (0-0.8) 10^3/ul Absolute Eos (auto) (0-0.6) 10^3/ul Absolute Basos (auto) (0-0.2) 10^3/ul Absolute Nucleated RBC 10^3/ul Nucleated RBC % Sodium (133-145) mmol/L Potassium (3.5-5.0) mmol/L Chloride (101-111) mmol/L Carbon Dioxide (22-32) mmol/L Anion Gap (2-11) mmol/L BUN (6-24) mg/dL Creatinine (0.51-0.95) mg/dL Est GFR ( Amer) (>60) Est GFR (Non-Af Amer) (>60) BUN/Creatinine Ratio (8-20) Glucose (70-100) mg/dL Lactic Acid 1.9 (0.5-2.0) mmol/L Calcium (8.6-10.3) mg/dL Total Bilirubin (0.2-1.0) mg/dL AST (13-39) U/L ALT (7-52) U/L Alkaline Phosphatase (34-104) U/L C-Reactive Protein (< 5.00) mg/L Total Protein (6.4-8.9) g/dL Albumin (3.2-5.2) g/dL Globulin (2-4) g/dL Albumin/Globulin Ratio (1-3) Lipase (11.0-82.0) U/L Beta HCG, Quant mIU/mL Urine Color Urine Appearance Urine pH (5-9) Ur Specific [place] (1.010-1.030) Urine Protein (Negative) Urine Ketones (Negative) Urine Blood (Negative) Urine Nitrate (Negative) Urine Bilirubin (Negative) Urine Urobilinogen (Negative) Ur Leukocyte Esterase (Negative) Urine WBC (Auto) (Absent) Urine RBC (Auto) (Absent) Ur Squamous Epith Cells (Absent) Calcium Oxalate Crystal (Absent) Urine Bacteria (Absent) Urine Glucose (Negative) Urine Ascorbic Acid (Negative) Assess/Plan/Problems-Billing Assessment: - Patient Problems (1) UTI (urinary tract infection) Current Visit: Yes Status: Acute Comment: C&S showed mixed radha, but clinical pcituyre c/w UTI. In view of many allergies will treat with doxy. (2) Trichomonal infection Current Visit: Yes Status: Acute Comment: Metronidazole rx'd. (3) Tobacco abuse Current Visit: Yes Status: Acute Code(s): Z72.0 - TOBACCO USE SNOMED Code( s): 142041567 Comment: Pt advised to quit smoking and avoid second hand smoke. (4) Psoriasis Current Visit: Yes Status: Acute Code(s): L40.9 - PSORIASIS, UNSPECIFIED SNOMED Code(s): 2542731 Comment: Pt using triamcinolone cream as originally prescribed by a load planner in [place]. (5) Morbid obesity Current Visit: Yes Status: Acute Code(s): E66.01 - MORBID (SEVERE) OBESITY DUE TO EXCESS CALORIES SNOMED Code(s): 781296670 Comment: BMI 43.4.
[2017-02-03] MEDS: Ibuprofen TAB* 600 MG PO PRN (12:45)
[2017-02-03] MEDS: DOXYcycline CAP(*) 100 MG PO SCH ×2 (12:45→21:50)
[2017-02-03] MEDS: metroNIDAZOLE TAB* 250 MG PO SCH ×3 (12:45→21:50)
[2017-02-03] MEDS: Omeprazole CAP* 20 MG PO SCH (21:49)
[2017-02-04] MEDS: HYDROmorphone* 1 MG/ML 1 ML SYR IV SLOW PU PRN ×7 (00:04→23:01)
[2017-02-04] MEDS: NS 0.9% 1000 ML* 1,000 ML IV SCH ×2 (03:09→14:54)
[2017-02-04] MEDS: TRIAMCINOLONE 0.1% TOPICAL SCH ×2 (08:40→21:02)
[2017-02-04] MEDS: Fluticasone NASAL SPRAY 50MCG* 16 gm SPRAY BTL BOTH NARES SCH (08:41)
[2017-02-04] MEDS: Nystatin TOP POWDER* 15 GM BTL TOPICAL SCH ×3 (08:41→21:02)
[2017-02-04] MEDS: metroNIDAZOLE TAB* 250 MG PO SCH ×5 (08:41→22:44)
[2017-02-04] MEDS: DOXYcycline CAP(*) 100 MG PO SCH ×3 (08:42→22:44)
[2017-02-04] MEDS: Ibuprofen TAB* 600 MG PO PRN (08:42)
[2017-02-04] MEDS ORDERED: diPHENhydraMINE PO* 50 MG PO PRN (16:31)
--- NOTE | 2017-02-04 16:31 | PN ---
Subjective Date of Service: 02/04/17 Interval History: Still some burning in perineal/vaginal area. Also more diffuse itching. Rash no better. Objective Active Medications: Acetaminophen (Tylenol Tab*) 650 mg PO Q6H PRN PRN Reason: pain/fever Doxycycline Hyclate (Vibramycin Cap(*)) 100 mg PO BID [facility] Last Admin: 02/04/17 08:42 Dose: 100 mg Fluticasone Propionate (Flonase Nasal [place] 50mcg*) 2 spray BOTH NARES DAILY [facility] Last Admin: 02/04/17 08:41 Dose: 2 spray Hydromorphone HCl (Dilaudid Iv*) 2 mg IV SLOW PU Q4H PRN PRN Reason: PAIN Last Admin: 02/04/17 14:54 Dose: 2 mg Sodium Chloride (Ns 0.9% 1000 Ml*) 1,000 mls @ 100 mls/hr IV PER RATE [facility] Last Admin: 02/04/17 14:54 Dose: 100 mls/hr Ibuprofen (Motrin Tab*) 600 mg PO Q6H PRN PRN Reason: PAIN Last Admin: 02/04/17 08:42 Dose: 600 mg Metronidazole (Flagyl Tab*) 500 mg PO QID [facility] Last Admin: 02/04/17 12:18 Dose: 500 mg Nystatin (Nystatin Top Powder*) 1 applic TOPICAL TID [facility] Last Admin: 02/04/17 08:41 Dose: 1 applic Omeprazole (Prilosec Cap*) 40 mg PO BEDTIME [facility] Last Admin: 02/03/17 21:49 Dose: 40 mg Ondansetron HCl (Zofran Inj*) 4 mg IV Q6H PRN PRN Reason: NAUSEA Last Admin: 02/03/17 19:54 Dose: 4 mg Triamcinolone Acetonide (Kenolog 0.1% Oint(Nf)) 1 applic TOPICAL BID [facility] Last Admin: 02/04/17 08:40 Dose: 1 applic Vital Signs 02/03/17 02/03/17 02/03/17 19:53 20:00 20:01 Temperature 98.2 F Pulse Rate 65 Respiratory 16 20 20 Rate Blood Pressure 113/48 (mmHg) O2 Sat by Pulse 98 Oximetry 02/03/17 02/03/17 02/04/17 20:53 23:33 00:04 Temperature 98.1 F Pulse Rate 69 Respiratory 20 20 20 Rate Blood Pressure 103/48 (mmHg) O2 Sat by Pulse 98 Oximetry 02/04/17 02/04/17 02/04/17 03:27 04:10 04:58 Temperature 98.1 F Pulse Rate 69 Respiratory 17 20 20 Rate Blood Pressure 113/39 (mmHg) O2 Sat by Pulse 98 Oximetry 02/04/17 02/04/17 02/04/17 08:00 09:04 09:20 Temperature 98.2 F Pulse Rate 64 Respiratory 14 16 21 Rate Blood Pressure 138/65 (mmHg) O2 Sat by Pulse 98 Oximetry 02/04/17 02/04/17 02/04/17 10:54 11:54 12:16 Temperature 98.1 F Pulse Rate 56 Respiratory 12 14 21 Rate Blood Pressure 134/66 (mmHg) O2 Sat by Pulse 96 Oximetry 02/04/17 02/04/17 14:54 15:14 Temperature 98.1 F Pulse Rate 62 Respiratory 14 16 Rate Blood Pressure 112/42 (mmHg) O2 Sat by Pulse 97 Oximetry Oxygen Devices in Use Now: None Appearance: Alert, in a chair. In fair spirits. Scratching all extremities often. Eyes: No Scleral Icterus Skin: No Nodules or Sclerosis, - - multiple psoriatic plaques trunk and all extremities. Some redder areas UE's and back. Neurological: Alert and Oriented x 3, NL Sensation Lines/Tubes/Other Access: Clean, Dry and Intact Endotracheal Tube Result Diagrams: 02/02/17 05:01 02/02/17 05:01 Additional Lab and Data: Lab Results 02/02/17 02/02/17 02/02/17 Range/Units 05:01 05:01 05:01 WBC 6.1 (3.5-10.8) 10^3/ul RBC 4.98 (4.0-5.4) 10^6/ul Hgb 14.3 (12.0-16.0) g/dl Hct 44 (35-47) % MCV 88 (80-97) fL MCH 29 (27-31) pg MCHC 33 (31-36) g/dl RDW 14 (10.5-15) % Plt Count 182 (150-450) 10^3/ul MPV 9 (7.4-10.4) um3 Neut % (Auto) 56.0 (38-83) % Lymph % (Auto) 30.0 (25-47) % [place] % (Auto) 7.6 (1-9) % Eos % (Auto) 4.1 (0-6) % Baso % (Auto) 2.3 H (0-2) % Absolute Neuts (auto) 3.4 (1.5-7.7) 10^3/ul Absolute Lymphs (auto) 1.8 (1.0-4.8) 10^3/ul Absolute Monos (auto) 0.5 (0-0.8) 10^3/ul Absolute Eos (auto) 0.3 (0-0.6) 10^3/ul Absolute Basos (auto) 0.1 (0-0.2) 10^3/ul Absolute Nucleated RBC 0 10^3/ul Nucleated RBC % 0.1 Sodium 136 (133-145) mmol/L Potassium 4.0 (3.5-5.0) mmol/L Chloride 105 (101-111) mmol/L Carbon Dioxide 27 (22-32) mmol/L Anion Gap 4 (2-11) mmol/L BUN 11 (6-24) mg/dL Creatinine 0.75 (0.51-0.95) mg/dL Est GFR ( Amer) 110.6 (>60) Est GFR (Non-Af Amer) 86.0 (>60) BUN/Creatinine Ratio 14.7 (8-20) Glucose 128 H (70-100) mg/dL Lactic Acid (0.5-2.0) mmol/L Calcium 8.8 (8.6-10.3) mg/dL Total Bilirubin 0.40 (0.2-1.0) mg/dL AST 34 (13-39) U/L ALT 45 (7-52) U/L Alkaline Phosphatase 71 (34-104) U/L C-Reactive Protein < 1.00 (< 5.00) mg/L Total Protein 6.3 L (6.4-8.9) g/dL Albumin 3.7 (3.2-5.2) g/dL Globulin 2.6 (2-4) g/dL Albumin/Globulin Ratio 1.4 (1-3) Lipase 30 (11.0-82.0) U/L Beta HCG, Quant < 0.60 mIU/mL Urine Color Yellow Urine Appearance Cloudy Urine pH 5.0 (5-9) Ur Specific [place] 1.027 (1.010-1.030) Urine Protein Negative (Negative) Urine Ketones Negative (Negative) Urine Blood Negative (Negative) Urine Nitrate Negative (Negative) Urine Bilirubin Negative (Negative) Urine Urobilinogen Negative (Negative) Ur Leukocyte Esterase 3+ H (Negative) Urine WBC (Auto) 3+(>20/hpf) H (Absent) Urine RBC (Auto) 3+(>10/hpf) H (Absent) Ur Squamous Epith Cells Present H (Absent) Calcium Oxalate Crystal Present H (Absent) Urine Bacteria Absent (Absent) Urine Glucose Negative (Negative) Urine Ascorbic Acid * H (Negative) 02/02/17 Range/Units 05:01 WBC (3.5-10.8) 10^3/ul RBC (4.0-5.4) 10^6/ul Hgb (12.0-16.0) g/dl Hct (35-47) % MCV (80-97) fL MCH (27-31) pg MCHC (31-36) g/dl RDW (10.5-15) % Plt Count (150-450) 10^3/ul MPV (7.4-10.4) um3 Neut % (Auto) (38-83) % Lymph % (Auto) (25-47) % [place] % (Auto) (1-9) % Eos % (Auto) (0-6) % Baso % (Auto) (0-2) % Absolute Neuts (auto) (1.5-7.7) 10^3/ul Absolute Lymphs (auto) (1.0-4.8) 10^3/ul Absolute Monos (auto) (0-0.8) 10^3/ul Absolute Eos (auto) (0-0.6) 10^3/ul Absolute Basos (auto) (0-0.2) 10^3/ul Absolute Nucleated RBC 10^3/ul Nucleated RBC % Sodium (133-145) mmol/L Potassium (3.5-5.0) mmol/L Chloride (101-111) mmol/L Carbon Dioxide (22-32) mmol/L Anion Gap (2-11) mmol/L BUN (6-24) mg/dL Creatinine (0.51-0.95) mg/dL Est GFR ( Amer) (>60) Est GFR (Non-Af Amer) (>60) BUN/Creatinine Ratio (8-20) Glucose (70-100) mg/dL Lactic Acid 1.9 (0.5-2.0) mmol/L Calcium (8.6-10.3) mg/dL Total Bilirubin (0.2-1.0) mg/dL AST (13-39) U/L ALT (7-52) U/L Alkaline Phosphatase (34-104) U/L C-Reactive Protein (< 5.00) mg/L Total Protein (6.4-8.9) g/dL Albumin (3.2-5.2) g/dL Globulin (2-4) g/dL Albumin/Globulin Ratio (1-3) Lipase (11.0-82.0) U/L Beta HCG, Quant mIU/mL Urine Color Urine Appearance Urine pH (5-9) Ur Specific [place] (1.010-1.030) Urine Protein (Negative) Urine Ketones (Negative) Urine Blood (Negative) Urine Nitrate (Negative) Urine Bilirubin (Negative) Urine Urobilinogen (Negative) Ur Leukocyte Esterase (Negative) Urine WBC (Auto) (Absent) Urine RBC (Auto) (Absent) Ur Squamous Epith Cells (Absent) Calcium Oxalate Crystal (Absent) Urine Bacteria (Absent) Urine Glucose (Negative) Urine Ascorbic Acid (Negative) Assess/Plan/Problems-Billing Assessment: - Patient Problems (1) UTI (urinary tract infection) Current Visit: Yes Status: Acute Comment: C&S showed mixed radha, but clinical picture c/w UTI. In view of many allergies I am treating with doxy. Rash and itching still may be due to recent ceftriaxone administration. (2) Trichomonal infection Current Visit: Yes Status: Acute Comment: Metronidazole 500 mg tid x 1 week due to her weight, would be 500 mg bid for normal weight. Discussed with Dr. Walters. Typically sx's take a few days to resolve after effective tx. Sitz bathes may help with discomfort. Diphenhydramine PRN pruritus. (3) Tobacco abuse Current Visit: Yes Status: Acute Code(s): Z72.0 - TOBACCO USE SNOMED Code( s): 505286342 Comment: Pt advised to quit smoking and avoid second hand smoke. (4) Psoriasis Current Visit: Yes Status: Acute Code(s): L40.9 - PSORIASIS, UNSPECIFIED SNOMED Code(s): 9914213 Comment: Pt using triamcinolone cream as originally prescribed by a chief vendor quality in [place]. (5) Morbid obesity Current Visit: Yes Status: Acute Code(s): E66.01 - MORBID (SEVERE) OBESITY DUE TO EXCESS CALORIES SNOMED Code(s): 756529948 Comment: BMI 43.4.
[2017-02-04] MEDS: Omeprazole CAP* 20 MG PO SCH ×2 (20:59→22:44)
[2017-02-04] MEDS: Ondansetron INJ* 2 MG/ML VIAL IV PRN (21:24)
[2017-02-05] MEDS: HYDROmorphone* 1 MG/ML 1 ML SYR IV SLOW PU PRN ×5 (03:07→22:47)
[2017-02-05] MEDS: NS 0.9% 1000 ML* 1,000 ML IV SCH ×2 (03:07→15:58)
[2017-02-05] MEDS: Ondansetron INJ* 2 MG/ML VIAL IV PRN ×3 (06:33→22:50)
[2017-02-05] MEDS: Ibuprofen TAB* 600 MG PO PRN ×2 (08:17→16:07)
[2017-02-05] MEDS: metroNIDAZOLE TAB* 250 MG PO SCH ×3 (08:18→21:31)
[2017-02-05] MEDS: Fluticasone NASAL SPRAY 50MCG* 16 gm SPRAY BTL BOTH NARES SCH (08:19)
[2017-02-05] MEDS: Nystatin TOP POWDER* 15 GM BTL TOPICAL SCH ×4 (08:19→21:30)
[2017-02-05] MEDS: TRIAMCINOLONE 0.1% TOPICAL SCH ×2 (08:28→21:36)
--- NOTE | 2017-02-05 09:02 | PN ---
Subjective Date of Service: 02/05/17 Interval History: several episodes of emesis in last 24 hrs, had to repeat her oral med dose yesterday due to emesis. Itching about the same. No improvement on rash on back although face is much better. Somewhat less vaginal burning. SHe has not had a sitz bath yet. Objective Active Medications: Acetaminophen (Tylenol Tab*) 650 mg PO Q6H PRN PRN Reason: pain/fever Diphenhydramine HCl (Benadryl Po*) 50 mg PO Q6H PRN PRN Reason: PRURITIS Doxycycline Hyclate (Vibramycin Cap(*)) 100 mg PO BID [facility] Last Admin: 02/04/17 22:44 Dose: 100 mg Fluticasone Propionate (Flonase Nasal [place] 50mcg*) 2 spray BOTH NARES DAILY [facility] Last Admin: 02/05/17 08:19 Dose: 2 spray Hydromorphone HCl (Dilaudid Iv*) 2 mg IV SLOW PU Q4H PRN PRN Reason: PAIN Last Admin: 02/05/17 08:20 Dose: 2 mg Sodium Chloride (Ns 0.9% 1000 Ml*) 1,000 mls @ 100 mls/hr IV PER RATE [facility] Last Admin: 02/05/17 03:07 Dose: 100 mls/hr Ibuprofen (Motrin Tab*) 600 mg PO Q6H PRN PRN Reason: PAIN Last Admin: 02/05/17 08:17 Dose: 600 mg Metronidazole (Flagyl Tab*) 500 mg PO TID [facility] Last Admin: 02/05/17 08:18 Dose: 500 mg Nystatin (Nystatin Top Powder*) 1 applic TOPICAL TID [facility] Last Admin: 02/05/17 08:19 Dose: 1 applic Omeprazole (Prilosec Cap*) 40 mg PO BEDTIME [facility] Last Admin: 02/04/17 22:44 Dose: 40 mg Ondansetron HCl (Zofran Inj*) 4 mg IV Q6H PRN PRN Reason: NAUSEA Last Admin: 02/05/17 06:33 Dose: 4 mg Triamcinolone Acetonide (Kenolog 0.1% Oint(Nf)) 1 applic TOPICAL BID [facility] Last Admin: 02/05/17 08:28 Dose: Not Given Triamcinolone Acetonide (Triamcinolone 0.5% Oint *) 1 applic TOPICAL TID [facility] Vital Signs 02/04/17 02/04/17 02/04/17 09:04 09:20 10:54 Temperature 98.2 F Pulse Rate 64 Respiratory 16 21 12 Rate Blood Pressure 138/65 (mmHg) O2 Sat by Pulse 98 Oximetry 02/04/17 02/04/17 02/04/17 11:54 12:16 14:54 Temperature 98.1 F Pulse Rate 56 Respiratory 14 21 14 Rate Blood Pressure 134/66 (mmHg) O2 Sat by Pulse 96 Oximetry 02/04/17 02/04/17 02/04/17 15:14 15:54 19:36 Temperature 98.1 F Pulse Rate 62 Respiratory 16 20 17 Rate Blood Pressure 112/42 (mmHg) O2 Sat by Pulse 97 Oximetry 02/04/17 02/04/17 02/04/17 20:18 20:36 23:01 Temperature 97.9 F Pulse Rate 57 Respiratory 18 16 17 Rate Blood Pressure 129/48 (mmHg) O2 Sat by Pulse 95 Oximetry 02/04/17 02/05/17 02/05/17 23:30 00:01 00:30 Temperature 97.6 F Pulse Rate 53 Respiratory 16 15 17 Rate Blood Pressure 113/63 (mmHg) O2 Sat by Pulse 97 Oximetry 02/05/17 02/05/17 02/05/17 03:07 04:07 04:32 Temperature 97.9 F Pulse Rate 60 Respiratory 18 16 16 Rate Blood Pressure 106/62 (mmHg) O2 Sat by Pulse 93 Oximetry 02/05/17 02/05/17 07:19 08:20 Temperature 97.3 F Pulse Rate 61 Respiratory 21 17 Rate Blood Pressure 136/58 (mmHg) O2 Sat by Pulse 100 Oximetry Oxygen Devices in Use Now: None Appearance: Alert, sitting up in bed. In fair spirits. Looks comfortable. Eyes: No Scleral Icterus Extremities: No Edema, No Clubbing, Cyanosis, - Skin: No Nodules or Sclerosis, - - facial rash much improved. 2/3 of upper back cofluent red rash. Multiple psoriatic plaques all extremities. Neurological: Alert and Oriented x 3, NL Sensation Result Diagrams: 02/02/17 05:01 02/02/17 05:01 Additional Lab and Data: Lab Results 02/02/17 02/02/17 02/02/17 Range/Units 05:01 05:01 05:01 WBC 6.1 (3.5-10.8) 10^3/ul RBC 4.98 (4.0-5.4) 10^6/ul Hgb 14.3 (12.0-16.0) g/dl Hct 44 (35-47) % MCV 88 (80-97) fL MCH 29 (27-31) pg MCHC 33 (31-36) g/dl RDW 14 (10.5-15) % Plt Count 182 (150-450) 10^3/ul MPV 9 (7.4-10.4) um3 Neut % (Auto) 56.0 (38-83) % Lymph % (Auto) 30.0 (25-47) % [place] % (Auto) 7.6 (1-9) % Eos % (Auto) 4.1 (0-6) % Baso % (Auto) 2.3 H (0-2) % Absolute Neuts (auto) 3.4 (1.5-7.7) 10^3/ul Absolute Lymphs (auto) 1.8 (1.0-4.8) 10^3/ul Absolute Monos (auto) 0.5 (0-0.8) 10^3/ul Absolute Eos (auto) 0.3 (0-0.6) 10^3/ul Absolute Basos (auto) 0.1 (0-0.2) 10^3/ul Absolute Nucleated RBC 0 10^3/ul Nucleated RBC % 0.1 Sodium 136 (133-145) mmol/L Potassium 4.0 (3.5-5.0) mmol/L Chloride 105 (101-111) mmol/L Carbon Dioxide 27 (22-32) mmol/L Anion Gap 4 (2-11) mmol/L BUN 11 (6-24) mg/dL Creatinine 0.75 (0.51-0.95) mg/dL Est GFR ( Amer) 110.6 (>60) Est GFR (Non-Af Amer) 86.0 (>60) BUN/Creatinine Ratio 14.7 (8-20) Glucose 128 H (70-100) mg/dL Lactic Acid (0.5-2.0) mmol/L Calcium 8.8 (8.6-10.3) mg/dL Total Bilirubin 0.40 (0.2-1.0) mg/dL AST 34 (13-39) U/L ALT 45 (7-52) U/L Alkaline Phosphatase 71 (34-104) U/L C-Reactive Protein < 1.00 (< 5.00) mg/L Total Protein 6.3 L (6.4-8.9) g/dL Albumin 3.7 (3.2-5.2) g/dL Globulin 2.6 (2-4) g/dL Albumin/Globulin Ratio 1.4 (1-3) Lipase 30 (11.0-82.0) U/L Beta HCG, Quant < 0.60 mIU/mL Urine Color Yellow Urine Appearance Cloudy Urine pH 5.0 (5-9) Ur Specific [place] 1.027 (1.010-1.030) Urine Protein Negative (Negative) Urine Ketones Negative (Negative) Urine Blood Negative (Negative) Urine Nitrate Negative (Negative) Urine Bilirubin Negative (Negative) Urine Urobilinogen Negative (Negative) Ur Leukocyte Esterase 3+ H (Negative) Urine WBC (Auto) 3+(>20/hpf) H (Absent) Urine RBC (Auto) 3+(>10/hpf) H (Absent) Ur Squamous Epith Cells Present H (Absent) Calcium Oxalate Crystal Present H (Absent) Urine Bacteria Absent (Absent) Urine Glucose Negative (Negative) Urine Ascorbic Acid * H (Negative) 02/02/17 Range/Units 05:01 WBC (3.5-10.8) 10^3/ul RBC (4.0-5.4) 10^6/ul Hgb (12.0-16.0) g/dl Hct (35-47) % MCV (80-97) fL MCH (27-31) pg MCHC (31-36) g/dl RDW (10.5-15) % Plt Count (150-450) 10^3/ul MPV (7.4-10.4) um3 Neut % (Auto) (38-83) % Lymph % (Auto) (25-47) % [place] % (Auto) (1-9) % Eos % (Auto) (0-6) % Baso % (Auto) (0-2) % Absolute Neuts (auto) (1.5-7.7) 10^3/ul Absolute Lymphs (auto) (1.0-4.8) 10^3/ul Absolute Monos (auto) (0-0.8) 10^3/ul Absolute Eos (auto) (0-0.6) 10^3/ul Absolute Basos (auto) (0-0.2) 10^3/ul Absolute Nucleated RBC 10^3/ul Nucleated RBC % Sodium (133-145) mmol/L Potassium (3.5-5.0) mmol/L Chloride (101-111) mmol/L Carbon Dioxide (22-32) mmol/L Anion Gap (2-11) mmol/L BUN (6-24) mg/dL Creatinine (0.51-0.95) mg/dL Est GFR ( Amer) (>60) Est GFR (Non-Af Amer) (>60) BUN/Creatinine Ratio (8-20) Glucose (70-100) mg/dL Lactic Acid 1.9 (0.5-2.0) mmol/L Calcium (8.6-10.3) mg/dL Total Bilirubin (0.2-1.0) mg/dL AST (13-39) U/L ALT (7-52) U/L Alkaline Phosphatase (34-104) U/L C-Reactive Protein (< 5.00) mg/L Total Protein (6.4-8.9) g/dL Albumin (3.2-5.2) g/dL Globulin (2-4) g/dL Albumin/Globulin Ratio (1-3) Lipase (11.0-82.0) U/L Beta HCG, Quant mIU/mL Urine Color Urine Appearance Urine pH (5-9) Ur Specific [place] (1.010-1.030) Urine Protein (Negative) Urine Ketones (Negative) Urine Blood (Negative) Urine Nitrate (Negative) Urine Bilirubin (Negative) Urine Urobilinogen (Negative) Ur Leukocyte Esterase (Negative) Urine WBC (Auto) (Absent) Urine RBC (Auto) (Absent) Ur Squamous Epith Cells (Absent) Calcium Oxalate Crystal (Absent) Urine Bacteria (Absent) Urine Glucose (Negative) Urine Ascorbic Acid (Negative) Assess/Plan/Problems-Billing Assessment: - Patient Problems (1) UTI (urinary tract infection) Current Visit: Yes Status: Acute Comment: C&S showed mixed radah, but clinical picture c/w UTI. In view of many allergies I am treating with doxy. Rash and itching still may be due to recent ceftriaxone administration. Uncertain if emesis related to doxy or metro--nurse will give 1 hr apart today to try to detremine which if either is the cause of her emesis. Note neg binta/Cl urine RNA test. (2) Trichomonal infection Current Visit: Yes Status: Acute Comment: Metronidazole 500 mg tid x 1 week due to her weight, would be 500 mg bid for normal weight. Discussed with Dr. Walters. Typically sx's take a few days to resolve after effective tx. Sitz bathes may help with discomfort. Diphenhydramine PRN pruritus. (3) Tobacco abuse Current Visit: Yes Status: Acute Code(s): Z72.0 - TOBACCO USE SNOMED Code( s): 975130462 Comment: Pt advised to quit smoking and avoid second hand smoke. (4) Psoriasis Current Visit: Yes Status: Acute Code(s): L40.9 - PSORIASIS, UNSPECIFIED SNOMED Code(s): 0137173 Comment: Pt using triamcinolone cream as originally prescribed by a cigar wrapper in [place]. Triamcinolone 0.5% oint to back tid PRN. (5) Morbid obesity Current Visit: Yes Status: Acute Code(s): E66.01 - MORBID (SEVERE) OBESITY DUE TO EXCESS CALORIES SNOMED Code(s): 117821391 Comment: BMI 43.4.
[2017-02-05] MEDS: Triamcinolone 0.5% OINT * 15 GM TUBE TOPICAL SCH ×3 (09:49→21:34)
[2017-02-05] MEDS: DOXYcycline CAP(*) 100 MG PO SCH ×2 (09:50→21:31)
[2017-02-05] MEDS: Omeprazole CAP* 20 MG PO SCH (21:31)
[2017-02-06] MEDS: NS 0.9% 1000 ML* 1,000 ML IV SCH (00:28)
[2017-02-06] MEDS: HYDROmorphone* 1 MG/ML 1 ML SYR IV SLOW PU PRN ×2 (02:36→06:50)
[2017-02-06 07:55] VITALS: BP 96/43
--- NOTE | 2017-02-06 09:26 | PN ---
Progress Note - Progress Note Date of Service: 02/06/17 Note: Time spent on discharge 45 minutes.
[2017-02-06] MEDS: DOXYcycline CAP(*) 100 MG PO SCH (09:47)
[2017-02-06] MEDS: metroNIDAZOLE TAB* 250 MG PO SCH (09:47)
[2017-02-06] MEDS: Triamcinolone 0.5% OINT * 15 GM TUBE TOPICAL SCH (09:48)
[2017-02-06] MEDS: Nystatin TOP POWDER* 15 GM BTL TOPICAL SCH (09:48)
[2017-02-06] MEDS: Fluticasone NASAL SPRAY 50MCG* 16 gm SPRAY BTL BOTH NARES SCH (09:48)
[2017-02-06] MEDS: TRIAMCINOLONE 0.1% TOPICAL SCH (09:48)
--- NOTE | 2017-02-06 17:00 | DS ---
CC: Dr. Gleason; Dr. Alicea DISCHARGE SUMMARY: DATE OF DISCHARGE: 02/06/17. HISTORY: This 41-year-old woman presented with right flank pain. She reported a temperature of 100 .1 at home. She noticed a vaginal discharge. There was a rash under her breast. She has quite exte nsive psoriasis of her whole body. She also has a history of kidney stones. The patient had been on nitrofurantoin as an outpatient. Urine culture on 02/02/17 grew out mixed f frankie. Vaginal culture from the same day was positive for trichomonas. It was negative for gardnere lla and brian. The urine RNA for gonorrhea and chlamydia were both negative. The patient was initially treated with ceftriaxone. She developed a rash. It was quite pleuritic. The ceftriaxone was stopped and it was changed to doxycycline. She was treated with oral metronidaz ole for trichomonas. She had gradual improvement. It was recommend she have sitz baths, but she wa s only able to do one. She said the bath leaked, she will do more sitz baths at home. FINAL DIAGNOSES: 1. Trichomonas infection. 2. Question of cystitis. 3. Tobacco abuse. 4. Psoriasis. 5. Morbid obesity. DISCHARGE MEDICATIONS: 1. Doxycycline 100 mg b.i.d. for 4 days. 2. Nystatin topical powder t.i.d. 3. Diphenhydramine 50 mg every 6 hours p.r.n. itching. 4. Metronidazole 500 mg t.i.d. for 5 more days. 5. Triamcinolone 0.1% cream b.i.d. to psoriatic areas. 6. Acetaminophen 1000 mg every 6 hours p.r.n. 7. Ibuprofen 600 mg every 6 hours p.r.n. 8. Omeprazole 40 mg h.s. 9. Fluticasone nasal spray 2 sprays both nares. [id number]/[facility] #: [id number]
== END 2017-02-06 11:45 | disposition home or self-care (01) | DRG 758 ==
LOC: ED 04:03 → MED 09:13 → OBSVTOIN 02-03 12:21
PROVIDERS: ADMIT Internal Medicine; ATTEND Internal Medicine
DX: A59.00 Urogenital trichomoniasis, unspecified (principal); Z68.43 Body mass index [BMI] 50.0-59.9, adult; N30.90 Cystitis, unspecified without hematuria; F17.210 Nicotine dependence, cigarettes, uncomplicated; K21.9 Gastro-esophageal reflux disease without esophagitis; R11.10 Vomiting, unspecified; R40.2412 Glasgow coma scale score 13-15, at arrival to emergency department; E66.01 Morbid (severe) obesity due to excess calories; L29.9 Pruritus, unspecified; R21 Rash and other nonspecific skin eruption; L40.9 Psoriasis, unspecified; Z87.442 Personal history of urinary calculi; Z90.49 Acquired absence of other specified parts of digestive tract; Z88.1 Allergy status to other antibiotic agents; Z88.2 Allergy status to sulfonamides; Z88.5 Allergy status to narcotic agent; Z88.0 Allergy status to penicillin; Z88.6 Allergy status to analgesic agent; Z80.3 Family history of malignant neoplasm of breast; Z80.0 Family history of malignant neoplasm of digestive organs; Z80.49 Family history of malignant neoplasm of other genital organs; Z83.3 Family history of diabetes mellitus
CPT/HCPCS: 36415; 74176; 80053; 81003; 81015; 83605; 83690; 84702; 85025; 86140; 87086; 87480; 87491; 87510; 87591; 87660; A9270-GY; G0378; J0696; J1170; J2270; J2405

== ENCOUNTER 2017-04-08 19:11 | Emergency (ER) | payer SELFPAY ==
[2017-04-09 03:30] LABS: Hematocrit 44 % (35-47); Hemoglobin 14.6 g/dl (12.0-16.0); Mean Corpuscular HGB Conc 33 g/dl (31-36); Mean Corpuscular Hemoglobin 29 pg (27-31); Mean Corpuscular Volume 88 fL (80-97); Mean Platelet Volume 8 um3 (7.4-10.4); Red Blood Count 5.02 10^6/ul (4.0-5.4); Red Cell Distribution Width 13 % (10.5-15); White Blood Count 6.6 10^3/ul (3.5-10.8)
[2017-04-09 03:43] LABS: Urine Bacteria Absent (Absent); Urine Bilirubin Negative (Negative); Urine Glucose Negative (Negative); Urine Nitrite Negative (Negative)
[2017-04-09 04:02] LABS: ALT 50 U/L (7-52); AST 27 U/L (13-39); Albumin 4.1 g/dL (3.2-5.2); Alkaline Phosphatase 80 U/L (34-104); Amylase 30 U/L (29-103); Anion Gap 7 mmol/L (2-11); BUN/Creatinine Ratio 15.2 (8-20); Blood Urea Nitrogen 14 mg/dL (6-24); C Reactive Protein < 1.00 mg/L (< 5.00); CO2 Carbon Dioxide 28 mmol/L (22-32); Calcium 9.3 mg/dL (8.6-10.3); Chloride 104 mmol/L (101-111); EGFR African American 87.4 (>60); Glucose 112 mg/dL (70-100); Lipase 24 U/L (11.0-82.0); Magnesium 2.1 mg/dL (1.9-2.7); Potassium 4.1 mmol/L (3.5-5.0); Sodium 139 mmol/L (133-145); Total Protein 7.1 g/dL (6.4-8.9)
[2017-04-09] MEDS ORDERED: Morphine INJ* 4 MG/ML 1 ML CARPUJECT IM ONE (04:27)
[2017-04-09] MEDS ORDERED: Ondansetron INJ* 2 MG/ML VIAL IV ONE (04:27)
[2017-04-09] MEDS ORDERED: Morphine INJ* 4 MG/ML 1 ML CARPUJECT IV ONE (04:39)
[2017-04-09] MEDS ORDERED: Iohexol 300* (CONTRAST) 10 ML SDV IV ONE (04:56)
[2017-04-09] MEDS ORDERED: cefTRIAXone(*) 1 GM in NS 0.9% 50 ML* 50 ML IVPB ONE (07:36)
--- NOTE | 2017-04-09 08:17 | ED ---
Rk Ann Abhishek, scribed for Landry Carcamo MD on 04/09/17 at 0104 . Abdominal Pain/Female - HPI Summary HPI Summary: This patient is a 41 year old F presenting to [facility] with a chief complaint of abd pain since 0600 yesterday morning. The CC is described as sharp pain, constant and on her right side. The patient rates the pain 9/10 in severity. Symptoms aggravated by movement. Symptoms alleviated by nothing. Patient reports N/V/D. Patient denies fever, hematuria, urinary s/s, vaginal bleeding and discharge. PMHx includes psoriasis, denies HTN, DM. - History of Current Complaint Chief Complaint: EDAbdPain Stated Complaint: RT SIDE PAIN Hx Obtained From: Patient Onset/Duration: Lasting Hours - since 0600 yesterday, Still Present Timing: Constant Severity Initially: Severe Severity Currently: Severe Pain Intensity: 9 Pain Scale Used: 0-10 Numeric Location: Other - Right sided abd pain Character: Sharp Aggravating Factor(s): Movement Alleviating Factor(s): Nothing Associated Signs and Symptoms: Positive: Nausea, Vomiting, Diarrhea, Other: - negative hematuria. Negative: Fever, Urinary Symptoms, Vaginal Bleeding, Vaginal Discharge Allergies/Adverse Reactions: Allergies Allergy/AdvReac Type Severity Reaction Status Date / Time Ciprofloxacin [From Cipro] Allergy Severe Difficulty Verified 07/23/16 17:08 Breathing Hydrocodone Allergy Severe Difficulty Verified 07/23/16 17:08 Breathing Sulfa Drugs Allergy Severe Difficulty Verified 07/23/16 17:08 Breathing Amoxicillin Allergy Intermediate Rash Verified 07/23/16 17:08 Ceftriaxone Allergy Mild Rash And Verified 02/06/17 09:24 Itching Ketorolac Tromethamine AdvReac See Comment Verified 02/02/17 11:59 [From Toradol] Morphine AdvReac Headache Verified 02/02/17 10:32 PMH/Surg Hx/FS Hx/Imm Hx Endocrine/Hematology History: Reports: Other Endocrine/Hematological Disorders - psoriasis Denies: Hx Anticoagulant Therapy, Hx Blood Disorders, Hx Diabetes, Hx Thyroid Disease, Hx Unexplained Bleeding Cardiovascular History: Denies: Hx Congestive Heart Failure, Hx Hypertension Respiratory History: Denies: Hx Asthma, Hx Chronic Obstructive Pulmonary Disease (COPD) GI History: Reports: Hx Gastroesophageal Reflux Disease, Hx Ulcer - gerd, Other GI Disorders - GERD History: Reports: Other Problems/Disorders - Hx OF KIDNEY STONES, OVARIAN CYSTS Denies: Hx Renal Disease Musculoskeletal History: Denies: Hx Rheumatoid Arthritis, Hx Osteoporosis Sensory History: Denies: Hx Contacts or Glasses, Hx Hearing Aid Opthamlomology History: Denies: Hx Contacts or Glasses Psychiatric History: Denies: Hx of Violent Episodes Against Others - Surgical History Surgery Procedure, Year, and Place: 2001 gall bladder removed, t&a - Immunization History Date of Tetanus Vaccine: PT STATES THAT SHE IS UNSURE Date of Influenza Vaccine: NONE Infectious Disease History: No Infectious Disease History: Denies: Hx Hepatitis, Hx Human Immunodeficiency Virus (HIV), History Other Infectious Disease, Traveled Outside the [place] in Last 30 Days - Family History Known Family History: Positive: Diabetes Negative: Cardiac Disease - Social History Alcohol Use: Occasionally Hx Substance Use: No Substance Use Type: Reports: None Hx Tobacco Use: Yes Smoking Status (MU): Light Every Day Tobacco Smoker Type: Cigarettes Amount Used/How Often: 3 cigs day Have You Smoked in the Last Year: Yes Review of Systems Negative: Fever Eyes: Negative ENT: Negative Cardiovascular: Negative Respiratory: Negative Positive: Abdominal Pain - right sided sharp abd pain, Vomiting, Diarrhea, Nausea Positive: other - negative urinary symptoms, vaginal bleeding. Negative: discharge, hematuria Skin: Negative Neurological: Negative Psychological: Normal All Other Systems Reviewed And Are Negative: Yes Physical Exam - Summary Physical Exam Summary: Appearance: Well-appearing, Well-nourished Skin: General psoriasis Eyes: Normal ENT: Normal Neck: Supple, nontender Respiratory: Clear to auscultation, Normal lung sounds Cardiovascular: Normal heart, Good pulses Abdomen: Soft, nontender, Tenderness in the right upper and right lower quadrant Bowel: Normal bowel sounds Musculoskeletal: Normal, Strength/ROM Intact Neurological: Normal, Alert, Oriented to Person Psychiatric: Normal Triage Information Reviewed: Yes Vital Signs On Initial Exam: Initial Vitals Temp Pulse Resp BP Pulse Ox 97.7 F 82 16 131/76 95 04/08/17 19:30 04/08/17 19:30 04/08/17 19:30 04/08/17 19:30 04/08/17 19:30 Vital Signs Reviewed: Yes - [place] Coma Scale Coma Scale Total: 15 Diagnostics - Vital Signs Vital Signs Temp Pulse Resp BP Pulse Ox 04/08/17 21:35 97.3 F 77 16 123/91 98 10/24/17 19:30 97.7 F 82 16 131/76 95 - Laboratory Lab Results: Lab Results 04/09/17 04/09/17 04/09/17 Range/Units 03:14 03:14 03:14 WBC 6.6 (3.5-10.8) 10^3/ul RBC 5.02 (4.0-5.4) 10^6/ul Hgb 14.6 (12.0-16.0) g/dl Hct 44 (35-47) % MCV 88 (80-97) fL MCH 29 (27-31) pg MCHC 33 (31-36) g/dl RDW 13 (10.5-15) % Plt Count 181 (150-450) 10^3/ul MPV 8 (7.4-10.4) um3 Neut % (Auto) 47.2 (38-83) % Lymph % (Auto) 41.8 (25-47) % Foard % (Auto) 6.6 (1-9) % Eos % (Auto) 3.2 (0-6) % Baso % (Auto) 1.2 (0-2) % Absolute Neuts (auto) 3.1 (1.5-7.7) 10^3/ul Absolute Lymphs (auto) 2.7 (1.0-4.8) 10^3/ul Absolute Monos (auto) 0.4 (0-0.8) 10^3/ul Absolute Eos (auto) 0.2 (0-0.6) 10^3/ul Absolute Basos (auto) 0.1 (0-0.2) 10^3/ul Absolute Nucleated RBC 0.01 10^3/ul Nucleated RBC % 0.1 INR (Anticoag Therapy) (0.89-1.11) APTT (26.0-36.3) seconds Sodium 139 (133-145) mmol/L Potassium 4.1 (3.5-5.0) mmol/L Chloride 104 (101-111) mmol/L Carbon Dioxide 28 (22-32) mmol/L Anion Gap 7 (2-11) mmol/L BUN 14 (6-24) mg/dL Creatinine 0.92 (0.51-0.95) mg/dL Est GFR ( Amer) 87.4 (>60) Est GFR (Non-Af Amer) 68.0 (>60) BUN/Creatinine Ratio 15.2 (8-20) Glucose 112 H (70-100) mg/dL Lactic Acid (0.5-2.0) mmol/L Calcium 9.3 (8.6-10.3) mg/dL Magnesium 2.1 (1.9-2.7) mg/dL Total Bilirubin 0.50 (0.2-1.0) mg/dL AST 27 (13-39) U/L ALT 50 (7-52) U/L Alkaline Phosphatase 80 (34-104) U/L C-Reactive Protein < 1.00 (< 5.00) mg/L Total Protein 7.1 (6.4-8.9) g/dL Albumin 4.1 (3.2-5.2) g/dL Globulin 3.0 (2-4) g/dL Albumin/Globulin Ratio 1.4 (1-3) Amylase 30 (29-103) U/L Lipase 24 (11.0-82.0) U/L Beta HCG, Quant < 0.60 mIU/mL Urine Color Yellow Urine Appearance Cloudy Urine pH 5.0 (5-9) Ur Specific [place] 1.028 (1.010-1.030) Urine Protein 1+(30 mg/dl) H (Negative) Urine Ketones Trace H (Negative) Urine Blood 1+ H (Negative) Urine Nitrate Negative (Negative) Urine Bilirubin Negative (Negative) Urine Urobilinogen Negative (Negative) Ur Leukocyte Esterase 3+ H (Negative) Urine WBC (Auto) 3+(>20/hpf) H (Absent) Urine RBC (Auto) 2+(6-10/hpf) H (Absent) Ur Squamous Epith Cells Present H (Absent) Calcium Oxalate Crystal Present H (Absent) Urine Bacteria Absent (Absent) Urine Glucose Negative (Negative) 04/09/17 04/09/17 Range/Units 03:14 03:14 WBC (3.5-10.8) 10^3/ul RBC (4.0-5.4) 10^6/ul Hgb (12.0-16.0) g/dl Hct (35-47) % MCV (80-97) fL MCH (27-31) pg MCHC (31-36) g/dl RDW (10.5-15) % Plt Count (150-450) 10^3/ul MPV (7.4-10.4) um3 Neut % (Auto) (38-83) % Lymph % (Auto) (25-47) % Foard % (Auto) (1-9) % Eos % (Auto) (0-6) % Baso % (Auto) (0-2) % Absolute Neuts (auto) (1.5-7.7) 10^3/ul Absolute Lymphs (auto) (1.0-4.8) 10^3/ul Absolute Monos (auto) (0-0.8) 10^3/ul Absolute Eos (auto) (0-0.6) 10^3/ul Absolute Basos (auto) (0-0.2) 10^3/ul Absolute Nucleated RBC 10^3/ul Nucleated RBC % INR (Anticoag Therapy) 0.90 (0.89-1.11) APTT 29.8 (26.0-36.3) seconds Sodium (133-145) mmol/L Potassium (3.5-5.0) mmol/L Chloride (101-111) mmol/L Carbon Dioxide (22-32) mmol/L Anion Gap (2-11) mmol/L BUN (6-24) mg/dL Creatinine (0.51-0.95) mg/dL Est GFR ( Amer) (>60) Est GFR (Non-Af Amer) (>60) BUN/Creatinine Ratio (8-20) Glucose (70-100) mg/dL Lactic Acid 1.1 (0.5-2.0) mmol/L Calcium (8.6-10.3) mg/dL Magnesium (1.9-2.7) mg/dL Total Bilirubin (0.2-1.0) mg/dL AST (13-39) U/L ALT (7-52) U/L Alkaline Phosphatase (34-104) U/L C-Reactive Protein (< 5.00) mg/L Total Protein (6.4-8.9) g/dL Albumin (3.2-5.2) g/dL Globulin (2-4) g/dL Albumin/Globulin Ratio (1-3) Amylase (29-103) U/L Lipase (11.0-82.0) U/L Beta HCG, Quant mIU/mL Urine Color Urine Appearance Urine pH (5-9) Ur Specific [place] (1.010-1.030) Urine Protein (Negative) Urine Ketones (Negative) Urine Blood (Negative) Urine Nitrate (Negative) Urine Bilirubin (Negative) Urine Urobilinogen (Negative) Ur Leukocyte Esterase (Negative) Urine WBC (Auto) (Absent) Urine RBC (Auto) (Absent) Ur Squamous Epith Cells (Absent) Calcium Oxalate Crystal (Absent) Urine Bacteria (Absent) Urine Glucose (Negative) Result Diagrams: 04/09/17 03:14 04/09/17 03:14 Lab Statement: Any lab studies that have been ordered have been reviewed, and results considered in the medical decision making process. Abdominal Pain Fem Course/Dx - Course Course Of Treatment: pt started on abx here in ED, labs consistent w UTI, no acute abnormalities on CT, instructed to fu with GI and obgyn, agrees t oand understands dc instructions - Diagnoses Provider Diagnoses: UTI (urinary tract infection) Discharge - Discharge Plan Condition: Improved Disposition: HOME Prescriptions: Cephalexin CAP* [Keflex CAP*] 500 mg PO QID #28 cap Patient Education Materials: Dysuria (ED) Referrals: No Primary Care Phys,NOPCP [Primary Care Provider] - [facility] [Provider Group] Additional Instructions: 1. PLEASE MAKE AN APPOINTMENT FIRST THING IN THE MORNING TO BE SEEN BY YOUR PRIMARY CARE PHYSICIAN WITHIN 3-5 DAYS 2. PLEASE RETURN IMMEDIATELY TO THE ER IF YOU HAVE ANY WORSENING OR CONCERNING SYMPTOMS The documentation as recorded by the Rk sanchez Abhishek accurately reflects the service I personally performed and the decisions made by me, Landry Carcamo MD.
--- NOTE | 2017-04-09 08:35 | RAD ---
Indication: Abdominal pain, sepsis. Contrast: Administered 150.0 ml of OMNIPAQUE 300 mg/ml CT of the abdomen and pelvis was performed after oral and IV contrast administration. Coronal and sagittal reconstructed images were obtained. The lung bases demonstrate no pleural fluid, nodules or masses. Heart is of normal size without evidence of pericardial effusion. The liver is normal in size. No focal lesions or intrahepatic ductal dilatation is noted. The pancreas demonstrates no mass or pancreatic duct dilatation. The common duct is not dilated. The patient is status post cholecystectomy. The spleen is normal in size. The pancreas demonstrates no mass or pancreatic duct dilatation. No adrenal lesions are noted. The kidneys demonstrate no hydronephrosis. No dilated loops of bowel are noted. CT of the pelvis demonstrates no retroperitoneal or pelvic lymphadenopathy. The bladder is unremarkable. No hernias are noted. IMPRESSION: No abnormal masses or fluid collections are noted.
[2017-04-09 09:49] VITALS: BP 100/60
[2017-04-09 09:50] LABS: Trichomonas Source Affirm Vaginal Swab (Negative)
== END 2017-04-09 09:49 | disposition home or self-care (01) ==
LOC: ED 19:11
DX: N39.0 Urinary tract infection, site not specified (principal); B96.20 Unspecified Escherichia coli [E. coli] as the cause of diseases classified elsewhere; Z32.02 Encounter for pregnancy test, result negative; R11.2 Nausea with vomiting, unspecified; R19.7 Diarrhea, unspecified; L40.9 Psoriasis, unspecified; K21.9 Gastro-esophageal reflux disease without esophagitis; Z90.49 Acquired absence of other specified parts of digestive tract; Z88.1 Allergy status to other antibiotic agents; Z88.5 Allergy status to narcotic agent; Z88.2 Allergy status to sulfonamides; F17.210 Nicotine dependence, cigarettes, uncomplicated
CPT/HCPCS: 36415; 74177; 80053; 81003; 81015; 82150; 83605; 83690; 83735; 84702; 85025; 85610; 85730; 86140; 87040; 87077; 87086; 87186; 87480; 87491; 87510; 87591; 87661; 96365; 96375; 99284; J0696; J2270; J2405; Q9967

== ENCOUNTER 2017-06-12 17:29 | Emergency (ER) | payer SELFPAY ==
[2017-06-12 17:39] VITALS: BP 127/69
--- NOTE | 2017-06-12 17:56 | UC ---
Throat Pain/Nasal [place] HPI - HPI Summary HPI Summary: 42 year old female presents with complains of sore throat and fever. - History of Current Complaint Chief Complaint: UCGeneralIllness Stated Complaint: SORE THROAT, AND FEVER Time Seen by Provider: 06/12/17 17:56 Hx Obtained From: Patient Hx Last Menstrual Period: 04/07 Onset/Duration: Sudden Onset Severity: Moderate Pain Scale Used: 0-10 Numeric - 5 - Allergies/Home Medications Allergies/Adverse Reactions: Allergies Allergy/AdvReac Type Severity Reaction Status Date / Time Ciprofloxacin [From Cipro] Allergy Severe Difficulty Verified 06/12/17 17:40 Breathing Hydrocodone Allergy Severe Difficulty Verified 06/12/17 17:40 Breathing Sulfa Drugs Allergy Severe Difficulty Verified 06/12/17 17:40 Breathing Amoxicillin Allergy Intermediate Rash Verified 06/12/17 17:40 Ceftriaxone Allergy Mild Rash And Verified 06/12/17 17:40 Itching Ketorolac Tromethamine AdvReac See Comment Verified 06/12/17 17:40 [From Toradol] Morphine AdvReac Headache Verified 06/12/17 17:40 PMH/Surg Hx/FS Hx/Imm Hx Previously Healthy: Yes Other History Of: Negative For: Anticoagulant Therapy - Surgical History Surgical History: Yes Surgery Procedure, Year, and Place: 2001 gall bladder removed, t&a - Family History Known Family History: Positive: None, Unknown, Diabetes Negative: Cardiac Disease - Social History Alcohol Use: Occasionally Substance Use Type: None Smoking Status (MU): Light Every Day Tobacco Smoker Type: Cigarettes Amount Used/How Often: 3 cigs day Have You Smoked in the Last Year: Yes Household Exposure Type: Cigarettes - Immunization History Most Recent Influenza Vaccination: 2016 Most Recent Pneumonia Vaccination: none Review of Systems Constitutional: Negative Skin: Negative Eyes: Negative ENT: Sore Throat, Nasal Discharge, Sinus Congestion, Sinus Pain/Tenderness Respiratory: Negative Cardiovascular: Negative Gastrointestinal: Negative Genitourinary: Negative Motor: Negative Neurovascular: Negative Musculoskeletal: Negative Neurological: Negative Psychological: Negative All Other Systems Reviewed And Are Negative: Yes Physical Exam Triage Information Reviewed: Yes Vital Signs: Initial Vital Signs Temp 36.7 C 06/12/17 17:35 Pulse 69 06/12/17 17:35 Resp 20 06/12/17 17:35 BP 127/69 06/12/17 17:35 Pulse Ox 96 12/28/17 17:35 Vital Signs Reviewed: Yes Eye Exam: Normal ENT: Positive: Pharyngeal erythema, Nasal congestion, Nasal drainage Dental Exam: Normal Neck exam: Normal Neck: Positive: 1 Respiratory: Positive: Respiratory distress, Wheezing Cardiovascular Exam: Normal Abdominal Exam: Normal Musculoskeletal Exam: Normal Neurological Exam: Normal Psychological Exam: Normal Skin Exam: Normal Throat Pain/Nasal Course/Dx - Differential Dx/Diagnosis Provider Diagnoses: pharyngitis. post nasal drip Discharge - Discharge Plan Condition: Stable Disposition: HOME Prescriptions: Azithromyxin TARUN (NF) [Z-Tarun (Zithromax) 250 mg tabs #6] 2 tab PO .TODAY, THEN 1 DAILY #6 tab Benzonatate CAP* [Tessalon 100 MG CAP*] 100 mg PO TID PRN #30 cap PRN Reason: Cough Clobetasol Propionate 0.05 % EX BID PRN 5 Days #2 tube PRN Reason: Itching LoraTADine TAB(NF) [Claritin 10 MG TAB(NF)] 10 mg PO DAILY #30 tab Magic M W2 Macho/Maal/Nyst/Lido* 5 ml SWISH SPIT QID PRN #120 ml PRN Reason: Pain predniSONE TAB* [Deltasone TAB*] 40 mg PO DAILY #10 tab Promethazine-Dm [Promethazine/Dextromethor 6.25-15 mg/5Ml] 1 teasp PO BEDTIME PRN #120 ml PRN Reason: Cough Patient Education Materials: Psoriasis (ED), Acute Cough (ED) Referrals: Urban Gleason MD [Primary Care Provider] -
== END 2017-06-12 18:16 | disposition home or self-care (01) ==
LOC: UCEAST 17:29
DX: J02.9 Acute pharyngitis, unspecified (principal); R09.82 Postnasal drip; F17.210 Nicotine dependence, cigarettes, uncomplicated; Z88.1 Allergy status to other antibiotic agents; Z88.5 Allergy status to narcotic agent; Z88.0 Allergy status to penicillin; Z88.2 Allergy status to sulfonamides
CPT/HCPCS: 87502; 87651; 99212; G0463

== ENCOUNTER 2017-07-22 13:37 | Emergency (ER) | payer SELFPAY ==
[2017-07-22] MEDS ORDERED: Acetaminophen TAB* 325 MG PO ONE (16:47)
[2017-07-22] MEDS ORDERED: Ondansetron INJ* 2 MG/ML VIAL IV ONE (16:47)
[2017-07-22] MEDS ORDERED: Albuterol 2.5 MG/3 ML NEB.SOL* (0.083%) INH ONE (16:48)
[2017-07-22] MEDS ORDERED: NS 0.9% 1000 ML* 1,000 ML IV ONE (17:02)
[2017-07-22] MEDS ORDERED: Ibuprofen TAB* 800 MG PO ONE (18:28)
[2017-07-22 19:32] VITALS: BP 133/79
--- NOTE | 2017-07-22 19:47 | ED ---
Colin Ann Stephanie, scribed for Urban Ramos MD on 07/22/17 at 1725 . Headache - HPI Summary HPI Summary: The pt is a 42 y/o F presenting to the ED with c/o CAO that began at 11:35 today. Symptoms include nausea, vomiting (3x) and cough. 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 The contaminated individual was seated in back of taxi. - History Of Current Complaint Chief Complaint: EDGeneral Stated Complaint: EXPOSURE, NOW HAS HEADACHE Hx Obtained From: Patient Hx Last Menstrual Period: 04/07 Onset/Duration: Started hours ago, Still Present Currently Pain Is: Moderate Timing: Constant Aggravating Factor: Nothing Allevating Factors: Nothing Associated Signs And Symptoms: Nausea, Vomiting - Allergies/Home Medications Allergies/Adverse Reactions: Allergies Allergy/AdvReac Type Severity Reaction Status Date / Time MS Ciprofloxacin [From Cipro] Allergy Severe Difficulty Verified 06/12/17 17:40 Breathing MS Hydrocodone [Hydrocodone] Allergy Severe Difficulty Verified 06/12/17 17:40 Breathing MS Sulfa Drugs [Sulfa Drugs] Allergy Severe Difficulty Verified 06/12/17 17:40 Breathing MS Amoxicillin Allergy Intermediate Rash Verified 06/12/17 17:40 MS Ceftriaxone [Ceftriaxone] Allergy Mild Rash And Verified 06/12/17 17:40 Itching MS Ketorolac Tromethamine AdvReac See Comment Verified 06/12/17 17:40 [From Toradol] MS Morphine [Morphine] AdvReac Headache Verified 06/12/17 17:40 PMH/Surg Hx/FS Hx/Imm Hx Endocrine/Hematology History: Reports: Other Endocrine/Hematological Disorders - psoriasis Denies: Hx Anticoagulant Therapy, Hx Blood Disorders, Hx Diabetes, Hx Thyroid Disease, Hx Unexplained Bleeding Cardiovascular History: Denies: Hx Congestive Heart Failure, Hx Hypertension Respiratory History: Denies: Hx Asthma, Hx Chronic Obstructive Pulmonary Disease (COPD) GI History: Reports: Hx Gastroesophageal Reflux Disease, Hx Ulcer - gerd, Other GI Disorders History: Reports: Other Problems/Disorders - Hx OF KIDNEY STONES, OVARIAN CYSTS Denies: Hx Dialysis, Hx Renal Disease Musculoskeletal History: Denies: Hx Rheumatoid Arthritis, Hx Osteoporosis Sensory History: Denies: Hx Contacts or Glasses, Hx Hearing Aid Opthamlomology History: Denies: Hx Contacts or Glasses Psychiatric History: Denies: Hx of Violent Episodes Against Others - Surgical History Surgery Procedure, Year, and Place: 2001 gall bladder removed, t&a - Immunization History Date of Tetanus Vaccine: PT STATES THAT SHE IS UNSURE Date of Influenza Vaccine: NONE Infectious Disease History: No Infectious Disease History: Denies: Hx Clostridium Difficile, Hx Hepatitis, Hx Human Immunodeficiency Virus (HIV), Hx Shingles, Hx Tuberculosis, Hx Known/Suspected VRE, Hx Known/ Suspected VRSA, History Other Infectious Disease, Traveled Outside the [place] in Last 30 Days - Family History Known Family History: Positive: Diabetes Negative: Cardiac Disease - Social History Occupation: Employed Part-time Lives: With Family Alcohol Use: Occasionally Hx Substance Use: No Substance Use Type: Reports: None Hx Tobacco Use: Yes Smoking Status (MU): Light Every Day Tobacco Smoker Type: Cigarettes Amount Used/How Often: 3 cigs day Have You Smoked in the Last Year: Yes Review of Systems Negative: Fever Positive: Cough Positive: Vomiting, Nausea Positive: Headache All Other Systems Reviewed And Are Negative: Yes Physical Exam - Summary Physical Exam Summary: Appearance: Well-appearing, Well-nourished Skin: Warm, Dry, No rash Eyes: Normal, PERRL, EOMI, sclera anicteric ENT: Normal Neck: Supple, nontender Respiratory: Clear to auscultation Cardiovascular: S1, S2, no murmur, no rub, no gallop Abdomen: Soft, nontender, no organomegaly Bowel sounds: Present Musculoskeletal: Normal, Strength/ROM Intact, no edema, pulses symmetrical Neurological: Normal, A&Ox3, cranial nerves II-XII WNL, follows commands, gait not tested, sensation intact to pin and light touch Psychiatric: affect normal, behavior appropriate, dressed appropriately, judgment intact Triage Information Reviewed: Yes Vital Signs On Initial Exam: Initial Vitals Temp Pulse Resp BP Pulse Ox 98.0 F 64 18 139/102 100 07/22/17 13:41 07/22/17 13:41 07/22/17 13:41 07/22/17 13:41 07/22/17 13:41 Vital Signs Reviewed: Yes Diagnostics - Vital Signs Vital Signs Temp Pulse Resp BP Pulse Ox 07/22/17 15:46 97.7 F 67 18 141/64 100 07/22/17 13:41 98.0 F 64 18 139/102 100 - Laboratory Lab Statement: Any lab studies that have been ordered have been reviewed, and results considered in the medical decision making process. Re-Evaluation - Re-Evaluation First Eval Re-Evaluation Time: 18:27 Change: Unchanged - The pt reports that she still has a CAO. Headache Course/Dx - Course Course Of Treatment: The pt will be discharged with Advil to treat her CAO and will be discharged. - Diagnoses Provider Diagnoses: Inhalation injury Discharge - Discharge Plan Condition: Stable Disposition: HOME Patient Education Materials: Smoke Inhalation (ED) Referrals: Urban Gleason MD [Primary Care Provider] - Additional Instructions: RETURN TO THE EMERGENCY DEPARTMENT FOR CHANGING OR WORSENING SYMPTOMS The documentation as recorded by the Colin sanchez Stephanie accurately reflects the service I personally performed and the decisions made by me, Urban Ramos MD.
== END 2017-07-22 19:31 | disposition home or self-care (01) ==
LOC: ED 13:37
DX: J70.5 Respiratory conditions due to smoke inhalation (principal); R11.2 Nausea with vomiting, unspecified; R05 Cough; F17.210 Nicotine dependence, cigarettes, uncomplicated; Z88.3 Allergy status to other anti-infective agents; Z88.5 Allergy status to narcotic agent; Z88.2 Allergy status to sulfonamides
CPT/HCPCS: 94640; 96374; 99282; A9270-GY; J2405

== ENCOUNTER 2017-08-05 20:06 | Emergency (ER) | payer SELFPAY ==
[2017-08-05 22:20] LABS: Hematocrit 44 % (35-47); Hemoglobin 14.6 g/dl (12.0-16.0); Mean Corpuscular HGB Conc 33 g/dl (31-36); Mean Corpuscular Hemoglobin 29 pg (27-31); Mean Corpuscular Volume 87 fL (80-97); Mean Platelet Volume 8 um3 (7.4-10.4); Platelet Count 204 10^3/ul (150-450); Red Blood Count 5.04 10^6/ul (4.0-5.4); Red Cell Distribution Width 14 % (10.5-15); White Blood Count 7.8 10^3/ul (3.5-10.8)
[2017-08-05 22:35] LABS: EGFR Non-African American 78.3 (>60)
[2017-08-05] MEDS ORDERED: Morphine INJ* 4 MG/ML 1 ML CARPUJECT IV ONE (22:51)
[2017-08-05] MEDS ORDERED: Morphine INJ* 4 MG/ML 1 ML SYRINGE (NEW SYRINGE VERSION) ONE (23:36)
[2017-08-06 00:05] LABS: Urine Appearance Cloudy; Urine Blood Negative (Negative); Urine Color Yellow; Urine Ketones Negative (Negative); Urine Protein Negative (Negative); Urine Specific Gravity 1.026 (1.010-1.030); Urine Urobilinogen Negative (Negative)
[2017-08-06] MEDS ORDERED: cefTRIAXone VIAL(*) 1,000 MG VIAL IM ONE (00:16)
[2017-08-06] MEDS ORDERED: Lidocaine 1%* 5 ML VIAL ONE (00:43)
[2017-08-06 01:03] VITALS: BP 101/48
--- NOTE | 2017-08-06 06:34 | ED ---
Clara Ann Nilda, scribed for Manuel Navarro MD on 08/05/17 at 2257 . Complex/Multi-Sys Presentation - HPI Summary HPI Summary: This patient is a 42 year old F presenting to [facility] with a chief complaint of constant severe right lower back pain that radiates to her right flank since noon today. Pt states intermittent flank pain originally began one week ago. The patient rates the pain 10/10 in severity. Symptoms aggravated by movement and palpation, and alleviated by rest. Patient reports vomiting (2x, today) and RLE swelling and pain, but denies hematuria and dysuria. Allergies include Cipro , Toradol, and Hydrocodone. PMHx includes psoriasis (95% covered) and renal calculi. - History Of Current Complaint Chief Complaint: EDFlankPain Time Seen by Provider: 08/05/17 22:39 Onset/Duration: Sudden Onset, Lasting Days, Still Present Timing: Constant Severity Currently: Severe Severity Initially: Moderate Location: Pain At: - right flank, right lower back, RLE Aggravating Factor(s): palpation, movement Alleviating Factor(s): rest Associated Signs And Symptoms: Positive: Other - severe right lower back pain that radiates to her right flank, vomiting (2x, today) and RLE swelling and pain , but denies hematuria and dysuria. - Allergies/Home Medications Allergies/Adverse Reactions: Allergies Allergy/AdvReac Type Severity Reaction Status Date / Time MS Ciprofloxacin [From Cipro] Allergy Severe Difficulty Verified 08/05/17 20:27 Breathing MS Hydrocodone [Hydrocodone] Allergy Severe Difficulty Verified 08/05/17 20:27 Breathing MS Sulfa Drugs [Sulfa Drugs] Allergy Severe Difficulty Verified 08/05/17 20:27 Breathing MS Amoxicillin Allergy Intermediate Rash Verified 08/05/17 20:27 MS Ceftriaxone [Ceftriaxone] Allergy Mild Rash And Verified 08/05/17 20:27 Itching MS Ketorolac Tromethamine AdvReac See Comment Verified 08/05/17 20:27 [From Toradol] PMH/Surg Hx/FS Hx/Imm Hx Endocrine/Hematology History: Reports: Other Endocrine/Hematological Disorders - psoriasis Denies: Hx Anticoagulant Therapy, Hx Blood Disorders, Hx Diabetes, Hx Thyroid Disease, Hx Unexplained Bleeding Cardiovascular History: Denies: Hx Congestive Heart Failure, Hx Hypertension Respiratory History: Denies: Hx Asthma, Hx Chronic Obstructive Pulmonary Disease (COPD) GI History: Reports: Hx Gastroesophageal Reflux Disease, Hx Ulcer - gerd, Other GI Disorders History: Reports: Hx Kidney Stones, Other Problems/Disorders - Hx OF KIDNEY STONES, OVARIAN CYSTS Denies: Hx Dialysis, Hx Renal Disease Musculoskeletal History: Reports: Other Musculoskeletal History - psoriasis Denies: Hx Rheumatoid Arthritis, Hx Osteoporosis Sensory History: Denies: Hx Contacts or Glasses, Hx Hearing Aid Opthamlomology History: Denies: Hx Contacts or Glasses Psychiatric History: Denies: Hx of Violent Episodes Against Others - Surgical History Surgery Procedure, Year, and Place: 2001 gall bladder removed, t&a - Immunization History Date of Tetanus Vaccine: PT STATES THAT SHE IS UNSURE Date of Influenza Vaccine: NONE Infectious Disease History: No Infectious Disease History: Denies: Hx Clostridium Difficile, Hx Hepatitis, Hx Human Immunodeficiency Virus (HIV), Hx Shingles, Hx Tuberculosis, Hx Known/Suspected VRE, Hx Known/ Suspected VRSA, History Other Infectious Disease, Traveled Outside the [place] in Last 30 Days - Family History Known Family History: Positive: Diabetes Negative: Cardiac Disease - Social History Occupation: Employed Full-time - cable [employer] Alcohol Use: Occasionally Hx Substance Use: No Substance Use Type: Reports: None Hx Tobacco Use: Yes Smoking Status (MU): Light Every Day Tobacco Smoker Type: Cigarettes Amount Used/How Often: 3 cigs day Have You Smoked in the Last Year: Yes Review of Systems Positive: Vomiting Negative: dysuria, hematuria Positive: Other - right lower back pain that radiates to her right flank, RLE swelling and pain Positive: Other - psoriasis All Other Systems Reviewed And Are Negative: Yes Physical Exam - Summary Physical Exam Summary: Appearance: Well appearing, no pain distress Skin: warm, dry, reflects adequate perfusion, Wide spread psoriasis plaques with itching and crusting Head/face: normal Eyes: EOMI, KOFFI ENT: normal, Mucous membranes moist Neck: supple, non-tender Respiratory: CTA, breath sounds present Cardiovascular: RRR, pulses symmetrical Abdomen: non-tender, soft Back: Right CVA tenderness Bowel: present Musculoskeletal: strength/ROM intact, Pedal edema on the right side Neuro: normal, sensory motor intact, A&Ox3 Triage Information Reviewed: Yes Vital Signs On Initial Exam: Initial Vitals Temp Pulse Resp BP Pulse Ox 99.1 F 70 16 132/83 97 08/05/17 20:20 08/05/17 20:20 08/05/17 20:20 08/05/17 20:20 08/05/17 20:20 Vital Signs Reviewed: Yes Diagnostics - Vital Signs Vital Signs Temp Pulse Resp BP Pulse Ox 08/05/17 20:20 99.1 F 70 16 132/83 97 - Laboratory Lab Results: Lab Results 08/05/17 08/05/17 Range/Units 22:10 22:10 WBC 7.8 (3.5-10.8) 10^3/ul RBC 5.04 (4.0-5.4) 10^6/ul Hgb 14.6 (12.0-16.0) g/dl Hct 44 (35-47) % MCV 87 (80-97) fL MCH 29 (27-31) pg MCHC 33 (31-36) g/dl RDW 14 (10.5-15) % Plt Count 204 (150-450) 10^3/ul MPV 8 (7.4-10.4) um3 Sodium 137 (133-145) mmol/L Potassium 4.2 (3.5-5.0) mmol/L Chloride 106 (101-111) mmol/L Carbon Dioxide 26 (22-32) mmol/L Anion Gap 5 (2-11) mmol/L BUN 16 (6-24) mg/dL Creatinine 0.81 (0.51-0.95) mg/dL Est GFR ( Amer) 100.7 (>60) Est GFR (Non-Af Amer) 78.3 (>60) BUN/Creatinine Ratio 19.8 (8-20) Glucose 102 H (70-100) mg/dL Calcium 9.3 (8.6-10.3) mg/dL Total Bilirubin 0.30 (0.2-1.0) mg/dL AST 22 (13-39) U/L ALT 35 (7-52) U/L Alkaline Phosphatase 73 (34-104) U/L Total Protein 7.0 (6.4-8.9) g/dL Albumin 4.1 (3.2-5.2) g/dL Globulin 2.9 (2-4) g/dL Albumin/Globulin Ratio 1.4 (1-3) Beta HCG, Quant 0.60 mIU/mL Result Diagrams: 08/05/17 22:10 08/05/17 22:10 Lab Statement: Any lab studies that have been ordered have been reviewed, and results considered in the medical decision making process. - CT Abd/Pel CT Interpretation Completed By: Radiologist - CT Abd/Pel, per radiologist, reveals negative for right or left urinary tract stone or obstruction. No bowel obstruction, free air, or free fluid. Negative for diverticulitis or colitis. Normal appendix noted. No acute abnormalities of the liver, spleen, pancreas or adrenal glands. Prior cholecystectomy. Osseous structures are intact. Dr. Navarro has reviewed this radiology report. - Ultrasound No standard instances Ultrasound Interpretation: No Acute Changes - Vasc Study of the RLE: Neg DVT - Additional Comments Diagnostic Additional Comments: US lower extremity venous Doppler, per radiologist, reveals negative for right lower extremity deep venous thrombosis. Dr. Navarro has reviewed this radiology report. Re-Evaluation - Re-Evaluation First Eval Re-Evaluation Time: 00:25 Comment: Pt found sleeping comfortably. Reviewed labs with pt and plan to D/C. Complex Multi-Symp Course/Dx Assessment/Plan: US lower extremity venous Doppler, per radiologist, reveals negative for right lower extremity deep venous thrombosis. Dr. Navarro has reviewed this radiology report. CT Abd/Pel, per radiologist, reveals negative for right or left urinary tract stone or obstruction. No bowel obstruction, free air, or free fluid. Negative for diverticulitis or colitis. Normal appendix noted. No acute abnormalities of the liver, spleen, pancreas or adrenal glands. Prior cholecystectomy. Osseous structures are intact. Dr. Navarro has reviewed this radiology report. - Diagnoses Provider Diagnoses: UTI (urinary tract infection), Morbid obesity, Psoriasis Discharge - Discharge Plan Condition: Good Disposition: HOME Prescriptions: DOXYcycline CAP(*) [DOXYcycline 100MG CAP(*)] 100 mg PO BID #10 cap Phenazopyridine 200 mg (NF) [Pyridium 200 MG tab *] 200 mg PO TID #9 tab Patient Education Materials: Urinary Tract Infection in Women (ED) Forms: *Work Release Referrals: Urban Gleason MD [Primary Care Provider] - Additional Instructions: Drink plenty of fluids, cranberry may help. Return with fever, vomiting, worse or other concerns as discussed. The documentation as recorded by the Clara sanchez Nilda accurately reflects the service I personally performed and the decisions made by me, Manuel Navarro MD.
--- NOTE | 2017-08-06 07:47 | RAD ---
HISTORY: Right leg pain and edema TECHNIQUE: Multiple transverse and longitudinal ultrasound images were obtained of the veins of the right lower extremity using grayscale, color Doppler, and spectral Doppler imaging with and without compression and with augmentation. FINDINGS: VEINS: The common femoral vein, deep femoral vein, femoral vein and popliteal vein are compressible throughout their course, with normal flow on color Doppler imaging and normal response to augmentation on spectral Doppler imaging. SOFT TISSUES: Grossly normal. No large popliteal fossa cyst was identified. IMPRESSION: No sonographic evidence of deep vein thrombosis.
--- NOTE | 2017-08-06 07:53 | RAD ---
CLINICAL HISTORY: Right flank pain with a history of "stones". Relevant surgical history includes cholecystectomy. COMPARISON: The patient has had [address] examinations since 2012, most recently February 02, 2017 TECHNIQUE: Noncontrast CT examination of the abdomen and pelvis from the lung bases through the initial tuberosities. FINDINGS: VISUALIZED LUNG BASES: The visualized lung bases are grossly clear. There is no pleural effusion. ABDOMEN AND PELVIS: Evaluation of the solid organs and vasculature is limited without intravenous contrast. The liver, spleen, pancreas and adrenal glands are grossly normal in appearance. The gallbladder is surgically absent. The kidneys are normal in appearance without focal mass, calcification or signs of hydronephrosis. The small and large bowel are not distended.The patient's normal appendix is identified in the right lower quadrant. There is no gross retroperitoneal or mesenteric lymphadenopathy. The pelvic viscera is normal in appearance. The abdominal aorta and iliac arteries are normal in course and diameter. Degenerative changes include multilevel loss of intervertebral disc height involving the lower thoracic and lumbar spine.There are no sinister bone lesions. IMPRESSION: No renal calculi or signs of hydronephrosis bilaterally.
== END 2017-08-06 01:04 | disposition home or self-care (01) ==
LOC: ED 20:06
DX: N39.0 Urinary tract infection, site not specified (principal); E66.01 Morbid (severe) obesity due to excess calories; L40.9 Psoriasis, unspecified; F17.210 Nicotine dependence, cigarettes, uncomplicated; K21.9 Gastro-esophageal reflux disease without esophagitis; Z87.442 Personal history of urinary calculi
CPT/HCPCS: 36415; 74176; 80053; 81003; 81015; 84702; 85027; 87086; 99283; J0696; J2270

== ENCOUNTER → 2018-01-14 03:38 | Emergency (ER) | payer OTHER ==
[~2018-01-14 03:38] MED LIST: Iohexol 300* (CONTRAST) 10 ML SDV IV ONE; Morphine INJ* 2 MG/ML 1 ML SYRINGE (TWO MG - NEW SYRINGE VERSION) IV ONE; Morphine VIAL* 10 MG/ML 1 ML VIAL IV ONE; NS 0.9% 1000 ML* 1,000 ML IV ONE; Nitrofurantoin Macrocrystals* 50 MG CAP PO ONE; Ondansetron INJ* 2 MG/ML VIAL IV ONE
--- NOTE | 2018-01-14 03:57 | ED ---
Back Pain - HPI Summary HPI Summary: This is daniel Crow documenting for attending Remington Lopez MD. This patient is a 42 year old F presenting to [facility] with a chief complaint of intermittent flank pain that began a week ago. The patient rates the pain 10/10 in severity. Hx kidney stones. - History of Current Complaint Chief Complaint: EDFlankPain Stated Complaint: FLANK PAIN Time Seen by Provider: 01/14/18 03:47 Hx Obtained From: Patient Hx Last Menstrual Period: 04/07 Onset/Duration: Lasting Weeks - 1, Still Present Onset/Duration: Still Present Timing: Intermittent Severity Initially: Severe Severity Currently: Severe Pain Intensity: 10 Pain Scale Used: 0-10 Numeric Associated Signs And Symptoms: Positive: Negative - fever - Allergies/Home Medications Allergies/Adverse Reactions: Allergies Allergy/AdvReac Type Severity Reaction Status Date / Time MS Ciprofloxacin [From Cipro] Allergy Severe Difficulty Verified 08/05/17 20:27 Breathing MS Hydrocodone [Hydrocodone] Allergy Severe Difficulty Verified 08/05/17 20:27 Breathing MS Sulfa Drugs [Sulfa Drugs] Allergy Severe Difficulty Verified 08/05/17 20:27 Breathing MS Amoxicillin Allergy Intermediate Rash Verified 08/05/17 20:27 MS Ceftriaxone [Ceftriaxone] Allergy Mild Rash And Verified 08/05/17 20:27 Itching MS Ketorolac Tromethamine AdvReac See Comment Verified 08/05/17 20:27 [From Toradol] PMH/Surg Hx/FS Hx/Imm Hx Endocrine/Hematology History: Reports: Other Endocrine/Hematological Disorders - psoriasis Denies: Hx Anticoagulant Therapy, Hx Blood Disorders, Hx Diabetes, Hx Thyroid Disease, Hx Unexplained Bleeding Cardiovascular History: Denies: Hx Congestive Heart Failure, Hx Hypertension Respiratory History: Denies: Hx Asthma, Hx Chronic Obstructive Pulmonary Disease (COPD) GI History: Reports: Hx Gastroesophageal Reflux Disease, Hx Ulcer - gerd, Other GI Disorders History: Reports: Hx Kidney Stones, Other Problems/Disorders - Hx OF KIDNEY STONES, OVARIAN CYSTS Denies: Hx Dialysis, Hx Renal Disease Musculoskeletal History: Reports: Other Musculoskeletal History - psoriasis Denies: Hx Rheumatoid Arthritis, Hx Osteoporosis Sensory History: Denies: Hx Contacts or Glasses, Hx Hearing Aid Opthamlomology History: Denies: Hx Contacts or Glasses Psychiatric History: Denies: Hx of Violent Episodes Against Others - Surgical History Surgery Procedure, Year, and Place: 2001 gall bladder removed, t&a - Immunization History Date of Tetanus Vaccine: PT STATES THAT SHE IS UNSURE Date of Influenza Vaccine: NONE Infectious Disease History: No Infectious Disease History: Denies: Hx Clostridium Difficile, Hx Hepatitis, Hx Human Immunodeficiency Virus (HIV), Hx Shingles, Hx Tuberculosis, Hx Known/Suspected VRE, Hx Known/ Suspected VRSA, History Other Infectious Disease, Traveled Outside the [place] in Last 30 Days - Family History Known Family History: Positive: None, Unknown, Diabetes Negative: Cardiac Disease - Social History Alcohol Use: Occasionally Hx Substance Use: No Substance Use Type: Reports: None Hx Tobacco Use: Yes Smoking Status (MU): Light Every Day Tobacco Smoker Type: Cigarettes Amount Used/How Often: 3 cigs day Have You Smoked in the Last Year: Yes Review of Systems Negative: Fever Positive: flank pain All Other Systems Reviewed And Are Negative: Yes Physical Exam - Summary Physical Exam Summary: Appearance: Well appearing, no pain distress Skin: warm, dry, reflects adequate perfusion Head/face: normal Eyes: EOMI, KOFFI ENT: normal Neck: supple, non-tender Respiratory: CTA, breath sounds present Cardiovascular: RRR, pulses symmetrical Abdomen: soft, TTP right flank Bowel: present Musculoskeletal: normal, strength/ROM intact Neuro: normal, sensory motor intact, A&Ox3 Triage Information Reviewed: Yes Vital Signs On Initial Exam: Initial Vitals Temp Pulse Resp BP Pulse Ox 97.6 F 71 20 91/53 97 01/14/18 03:41 01/14/18 03:41 01/14/18 03:41 01/14/18 03:41 01/14/18 03:41 Vital Signs Reviewed: Yes Diagnostics - Vital Signs Vital Signs Temp Pulse Resp BP Pulse Ox 01/14/18 03:41 97.6 F 71 20 91/53 97 - Laboratory Result Diagrams: 01/14/18 04:01 01/14/18 04:01 Lab Statement: Any lab studies that have been ordered have been reviewed, and results considered in the medical decision making process. - CT CT ABD/Pelvis CT Interpretation Completed By: Radiologist - no acute findings ED physician has reviewed this radiology report. Back Pain Course/Dx - Course Assessment/Plan: This patient is a 42 year old F presenting to [facility] with a chief complaint of intermittent flank pain that began a week ago. The patient rates the pain 10/10 in severity. Hx kidney stones. CT ABD/Pelvis reveals, per radiologist, no acute findings. UA showed UTI. Blood work obtained. Patient will be discharged with prescription for abx and follow up from PCP. The patient is agreeable with this plan. - Diagnoses Differential Diagnosis/HQI/PQRI: Positive: Renal Colic, Other - uti/ diverticulitis Provider Diagnoses: UTI (urinary tract infection) Discharge - Sign-Out/Discharge Documenting (check all that apply): Patient Departure - Discharge Plan Condition: Stable Disposition: HOME Prescriptions: Nitrofurantoin Monohyd/M-Cryst [Macrobid 100 mg Capsule] 100 mg PO BID #20 cap Patient Education Materials: Urinary Tract Infection in Women (DC) Referrals: Urban Gleason MD [Primary Care Provider] - 4 Days Additional Instructions: RETURN TO THE EMERGENCY DEPARTMENT FOR CHANGING OR WORSENING SYMPTOMS - Billing Disposition and Condition Condition: STABLE Disposition: Home
[2018-01-14 04:11] LABS: ABS Basophils 0.1 10^3/ul (0-0.2); ABS Eosinophils 0.2 10^3/ul (0-0.6); ABS Lymphocytes 2.2 10^3/ul (1.0-4.8); ABS Monocytes 0.4 10^3/ul (0-0.8); ABS Neutrophils 3.3 10^3/ul (1.5-7.7); ABS Nucleated RBC 0 10^3/ul; Eosinophil % 3.4 % (0-6); Hematocrit 43 % (35-47); Hemoglobin 14.2 g/dl (12.0-16.0); Lymphocyte % 35.9 % (25-47); Mean Corpuscular HGB Conc 33 g/dl (31-36); Mean Corpuscular Hemoglobin 29 pg (27-31); Mean Corpuscular Volume 87 fL (80-97); Mean Platelet Volume 8.6 um3 (7.4-10.4); Nucleated Red Blood Cells % 0.2; Platelet Count 163 10^3/ul (150-450); Red Blood Count 4.89 10^6/ul (4.00-5.40); Red Cell Distribution Width 14 % (10.5-15); White Blood Count 6.3 10^3/ul (3.5-10.8)
[2018-01-14 04:17] LABS: INR 0.86 (0.77-1.02)
[2018-01-14 04:30] LABS: EGFR Non-African American 85.6 (>60)
[2018-01-14 04:43] LABS: Urine Appearance Cloudy; Urine Blood Negative (Negative); Urine Color Yellow; Urine Ketones Negative (Negative); Urine Protein Negative (Negative); Urine Red Blood Cell 2+(6-10/hpf) (Absent); Urine Specific Gravity 1.018 (1.010-1.030); Urine Urobilinogen Negative (Negative); Urine White Blood Cell 2+(11-20/hpf) (Absent)
[2018-01-14 06:30] VITALS: BP 124/74
--- NOTE | 2018-01-14 08:14 | RAD ---
CLINICAL HISTORY: appendicitis, flank pain COMPARISON: August 05, 2017 TECHNIQUE: Multiple contiguous axial CT scans were obtained of the abdomen and pelvis after the administration of intravenous contrast. Coronal and sagittal multiplanar reformations are submitted for review. Oral contrast was not administered. Delayed images were obtained through the abdomen. FINDINGS: LUNG BASES: The lung bases are clear. LIVER: The liver is normal in shape, size, contour, and attenuation. BILE DUCTS: There is no intrahepatic or extrahepatic biliary dilatation. GALLBLADDER: The gallbladder is not visualized. Surgical clips are noted in the gallbladder fossa. PANCREAS: The pancreas is normal, without mass or ductal dilatation. SPLEEN: Normal in size and appearance. UPPER GI TRACT: Evaluation of the gastrointestinal tract is limited by incomplete gastric distention. The upper GI tract is unremarkable. SMALL BOWEL AND MESENTERY: The small bowel is normal in contour, course, and caliber. There is no obstruction or dilatation. COLON: The colon is normal in contour, course, caliber. There is no pericolonic inflammatory change. There is a tubular, vermiform, hollow viscus that is blind ending, and originates from the cecum, consistent with a normal appendix. There is no periappendiceal inflammatory change. This is best seen on coronal images 68 through 72. ADRENALS: Normal bilaterally. KIDNEYS: The kidneys are normal in shape, size, contour, and axis. There is no hydronephrosis or nephrolithiasis. BLADDER: The bladder is smooth in contour. PELVIC ORGANS: The uterus and adnexa are grossly normal for technique. AORTA: The aorta is normal. IVC: Unremarkable LYMPH NODES: There is no lymphadenopathy by size criteria. ABDOMINAL WALL: There is no evidence for abdominal wall hernia. BONES AND SOFT TISSUES: There are mild diffuse degenerative changes. OTHER: None IMPRESSION: NORMAL APPENDIX R0
== END | disposition home or self-care (01) ==
LOC: ED 03:38
DX: N39.0 Urinary tract infection, site not specified (principal); F17.210 Nicotine dependence, cigarettes, uncomplicated; Z87.442 Personal history of urinary calculi; Z88.8 Allergy status to other drugs, medicaments and biological substances; Z88.3 Allergy status to other anti-infective agents; Z88.2 Allergy status to sulfonamides
CPT/HCPCS: 36415; 74177; 80053; 81003; 81015; 83690; 84484; 84702; 85025; 85610; 85730; 87086; 96361; 96374; 96375; 99282; A9270-GY; J2270; J2405; Q9967

== ENCOUNTER 2018-02-01 15:39 | Emergency (ER) | payer OTHER ==
[2018-02-01 16:24] VITALS: BP 126/100
[2018-02-01] MEDS ORDERED: Acetaminophen ADULT LIQ* 650 MG/20.3 ML UDC PO ONE (16:36)
[2018-02-01] MEDS ORDERED: Ibuprofen TAB* 400 MG PO ONE (16:38)
[2018-02-01] MEDS ORDERED: DOXYcycline CAP(*) 100 MG PO ONE (17:40)
--- NOTE | 2018-02-01 17:51 | UC ---
Dental HPI - HPI Summary HPI Summary: C/O dental cavity for several weeks but has to set appointment with dentist, she was eating a sandwich yesterday and starte having pain down her mandible and shooting up her cheek. Denies chills and fever. She states she is allergic to multiple antibiotics. Has been applying ice to numb the pain - History of Current Complaint Chief Complaint: UCGeneralIllness Stated Complaint: FACE SWOLLEN EAR PAIN CAO Time Seen by Provider: 02/01/18 17:18 Hx Obtained From: Patient Hx Last Menstrual Period: [id number] ?: No Onset/Duration: Sudden Onset, Lasting Days Severity: Severe Pain Intensity: 9 Aggravating Factor(s): Chewing Alleviating Factor(s): Nothing Related History: Previous Dental Care on Same Tooth, Swelling - Allergies/Home Medications Allergies/Adverse Reactions: Allergies Allergy/AdvReac Type Severity Reaction Status Date / Time amoxicillin Allergy Rash Verified 02/01/18 16:32 ceftriaxone Allergy Rash And Verified 02/01/18 16:32 Itching ciprofloxacin Allergy Difficulty Verified 02/01/18 16:32 Breathing hydrocodone Allergy Difficulty Verified 02/01/18 16:32 Breathing ketorolac [From Toradol] Allergy See Comment Verified 02/01/18 16:32 Sulfa (Sulfonamide Allergy Difficulty Verified 02/01/18 16:32 Antibiotics) Breathing Home Medications: Home Medications Esomeprazole Magnesium [Nexium 24Hr] 20 mg PO DAILY 02/01/18 [History Confirmed 02/01/18] Ibuprofen TAB* [Motrin TAB* 600 MG] 600 mg PO Q6H PRN 02/01/18 [History Confirmed 02/01/18] Triamcinolone PASTE 0.1% (NF) [Triamcinolone 0.1% PASTE *] 1 applic TOPICAL BID 02/01/18 [History Confirmed 02/01/18] PMH/Surg Hx/FS Hx/Imm Hx Previously Healthy: Yes GI/ History: Gastroesophageal Reflux Other History Of: Negative For: Anticoagulant Therapy - Surgical History Surgical History: Yes Surgery Procedure, Year, and Place: 2001 gall bladder removed, t&a - Family History Known Family History: Positive: None, Unknown, Diabetes Negative: Cardiac Disease - Social History Alcohol Use: Rare Substance Use Type: None Smoking Status (MU): Light Every Day Tobacco Smoker Type: Cigarettes Amount Used/How Often: 3 cigs day Have You Smoked in the Last Year: Yes Household Exposure Type: Cigarettes - Immunization History Most Recent Influenza Vaccination: 2016 Most Recent Pneumonia Vaccination: none Review of Systems Constitutional: Negative Skin: Negative Eyes: Negative ENT: Negative, Dental Pain Respiratory: Negative Cardiovascular: Negative Gastrointestinal: Negative Genitourinary: Negative All Other Systems Reviewed And Are Negative: Yes Physical Exam Triage Information Reviewed: Yes Appearance: Well-Appearing, Pain Distress, Obese Vital Signs: Initial Vital Signs Temp 99.6 F 02/01/18 16:18 Pulse 66 02/01/18 16:18 Resp 16 02/01/18 16:18 BP 126/100 02/01/18 16:18 Pulse Ox 98 02/01/18 16:18 Vital Signs Reviewed: Yes Eyes: Positive: Conjunctiva Clear ENT: Positive: Hearing grossly normal, Pharynx normal, TMs normal, Uvula midline , Other - dental sepsis, right inferior gingiva red and swollen, no fluctuation noted Musculoskeletal: Positive: Strength Intact, ROM Intact Dental Complaint Course/Dx - Course Course Of Treatment: Patient with multiple dental cavities, advised to consult dental services [facility], start antibiotics as prescribed and mouth wash. Apply ice. Continue tylenol or motrin - Differential Dx/Diagnosis Differential Diagnosis/Dx: Dental Caries, Gingivitis Provider Diagnoses: Gingivitis. Dental caries Discharge - Sign-Out/Discharge Documenting (check all that apply): Patient Departure All imaging exams completed and their final reports reviewed: No Studies - Discharge Plan Condition: Good Disposition: HOME Prescriptions: Chlorhexidine MOUTHWASH 0.12%* [Peridex Mouth Wash 0.12%*] 15 ml .SEE ORDER BID 7 Days #1 oral.soln DOXYcycline CAP(*) [DOXYcycline 100MG CAP(*)] 100 mg PO BID 7 Days #14 cap Patient Education Materials: Doxycycline (By mouth), Dental Abscess (ED) Forms: *Work Release Referrals: Urban Gleason MD [Primary Care Provider] - Additional Instructions: please follow up with dental within a week - Billing Disposition and Condition Condition: GOOD Disposition: Home
== END 2018-02-01 17:56 | disposition home or self-care (01) ==
LOC: UCEAST 15:39
DX: K05.10 Chronic gingivitis, plaque induced (principal); K02.9 Dental caries, unspecified; Z88.0 Allergy status to penicillin; Z88.1 Allergy status to other antibiotic agents; Z88.5 Allergy status to narcotic agent; Z88.8 Allergy status to other drugs, medicaments and biological substances; K21.9 Gastro-esophageal reflux disease without esophagitis; F17.210 Nicotine dependence, cigarettes, uncomplicated
CPT/HCPCS: 99212; A9270-GY; G0463

== ENCOUNTER → 2018-02-28 11:47 | Emergency (ER) | payer OTHER ==
[~2018-02-28 11:47] MED LIST changes: +Fluconazole 100 MG TAB* TAB PO ONE; +Fluconazole 150 MG (NF) 150 MG TAB PO ONE; -Iohexol 300* (CONTRAST) 10 ML SDV IV ONE; -Morphine INJ* 2 MG/ML 1 ML SYRINGE (TWO MG - NEW SYRINGE VERSION) IV ONE; -Morphine VIAL* 10 MG/ML 1 ML VIAL IV ONE; -NS 0.9% 1000 ML* 1,000 ML IV ONE; -Nitrofurantoin Macrocrystals* 50 MG CAP PO ONE; -Ondansetron INJ* 2 MG/ML VIAL IV ONE
--- NOTE | 2018-02-28 12:35 | ED ---
GI/ HPI - HPI Summary HPI Summary: Patient is a 42 y/o F w/ c/o swelling and a flair-up of psoriasis at her RUE and RLE onsetting yesterday. Patient also reports right flank pain and states her "kidney hurts". Patient notes that she only takes topical medication for psoriasis as her rac specialist does not want to give her "more intense" measures. Patient reports 95% of her body is covered in psoriasis. She reports that she received a Dx of UTI recently, started taking doxycycline about four days ago. She reports no relief in Sx and has been experiencing dysuria. On triage, pain is rated 10/10, nothing is noted to aggravate/alleviate Sx. Home medications and allergies are reviewed. - History of Current Complaint Chief Complaint: EDFlankPain Time Seen by Provider: 02/28/18 11:57 Stated Complaint: FLANK PAIN Hx Obtained From: Patient Hx Last Menstrual Period: [id number] Onset/Duration: Started Days Ago - flair up of psoriasis, Still Present Timing: Constant Current Severity: Severe - 10/10 Pain Intensity: 10 Location of Pain: Flank - righ Associated Signs and Symptoms: Positive: Dysuria, Other: - psoriasis Aggravating Factor(s): Nothing Alleviating Factor(s): Nothing - Additional Pertinent History Primary Care Physician: [id number] - Allergy/Home Medications Allergies/Adverse Reactions: Allergies Allergy/AdvReac Type Severity Reaction Status Date / Time amoxicillin Allergy Rash Verified 02/28/18 11:53 ceftriaxone Allergy Rash And Verified 02/28/18 11:53 Itching ciprofloxacin Allergy Difficulty Verified 02/28/18 11:53 Breathing hydrocodone Allergy Difficulty Verified 02/28/18 11:53 Breathing ketorolac [From Toradol] Allergy See Comment Verified 02/28/18 11:53 Sulfa (Sulfonamide Allergy Difficulty Verified 02/28/18 11:53 Antibiotics) Breathing PMH/Surg Hx/FS Hx/Imm Hx Endocrine/Hematology History: Reports: Other Endocrine/Hematological Disorders - psoriasis Denies: Hx Anticoagulant Therapy, Hx Blood Disorders, Hx Diabetes, Hx Thyroid Disease, Hx Unexplained Bleeding Cardiovascular History: Denies: Hx Congestive Heart Failure, Hx Hypertension Respiratory History: Denies: Hx Asthma, Hx Chronic Obstructive Pulmonary Disease (COPD) GI History: Reports: Hx Gastroesophageal Reflux Disease, Other GI Disorders Denies: Hx Ulcer History: Reports: Hx Kidney Stones, Other Problems/Disorders - Hx OF KIDNEY STONES, OVARIAN CYSTS Denies: Hx Dialysis, Hx Renal Disease Musculoskeletal History: Reports: Other Musculoskeletal History - psoriasis Denies: Hx Rheumatoid Arthritis, Hx Osteoporosis Sensory History: Denies: Hx Contacts or Glasses, Hx Hearing Aid Opthamlomology History: Denies: Hx Contacts or Glasses Psychiatric History: Denies: Hx of Violent Episodes Against Others - Surgical History Surgery Procedure, Year, and Place: 2001 gall bladder removed, t&a - Immunization History Date of Tetanus Vaccine: PT STATES THAT SHE IS UNSURE Date of Influenza Vaccine: NONE Infectious Disease History: No Infectious Disease History: Denies: Hx Clostridium Difficile, Hx Hepatitis, Hx Human Immunodeficiency Virus (HIV), Hx Shingles, Hx Tuberculosis, Hx Known/Suspected VRE, Hx Known/ Suspected VRSA, History Other Infectious Disease, Traveled Outside the [place] in Last 30 Days - Family History Known Family History: Positive: Diabetes Negative: Cardiac Disease - Social History Alcohol Use: Rare Hx Substance Use: No Substance Use Type: Reports: None Hx Tobacco Use: Yes Smoking Status (MU): Light Every Day Tobacco Smoker Type: Cigarettes Amount Used/How Often: 3 cigs day Have You Smoked in the Last Year: Yes Review of Systems Positive: dysuria, flank pain - right sided Positive: Other - psoriasis flair at RUE and RLE; patient notes 95% of her body is covered by psoriasis All Other Systems Reviewed And Are Negative: Yes Physical Exam - Summary Physical Exam Summary: Appearance: Well appearing, no pain distress Skin: warm, dry, reflects adequate perfusion; intertrigo with redness and satellite lesions at panniculus which extends over midline region; flair-up of psoriasis, widespread Head/face: normal Eyes: EOMI, KOFFI ENT: normal Neck: supple, non-tender Respiratory: CTA, breath sounds present Cardiovascular: RRR, pulses symmetrical Abdomen: non-tender, soft Bowel Sounds: present Musculoskeletal: normal, strength/ROM intact Neuro: normal, sensory motor intact, A&Ox3 Triage Information Reviewed: Yes Vital Signs On Initial Exam: Initial Vitals Temp Pulse Resp BP Pulse Ox 98.4 F 72 16 160/86 96 02/28/18 11:50 02/28/18 11:50 02/28/18 11:50 02/28/18 11:50 02/28/18 11:50 Vital Signs Reviewed: Yes Diagnostics - Vital Signs Vital Signs Temp Pulse Resp BP Pulse Ox 02/28/18 11:50 98.4 F 72 16 160/86 96 - Laboratory Lab Statement: Any lab studies that have been ordered have been reviewed, and results considered in the medical decision making process. GIGU Course/Dx - Course Course Of Treatment: Patient with a candidal intertrigo likely related to recent antibiotic use. Also flared and her psoriasis. I will treat her with Diflucan here and topical nystatin powder as well as a second Diflucan in several days. She will be changed from doxycycline to Macrobid given her persistent dysuria. I will also place her on a short course of Medrol dose pack following resolution of her intertrigo for Perthes of treating her psoriasis. - Diagnoses Provider Diagnoses: UTI (urinary tract infection), Psoriasis, Candidal intertrigo Discharge - Sign-Out/Discharge Documenting (check all that apply): Patient Departure - discharge - Discharge Plan Condition: Improved Disposition: HOME Prescriptions: Fluconazole [Diflucan 150 MG (NF)] 150 mg PO ONCE #1 tab methylPREDNISolone [Medrol] 4 mg PO DAILY #1 tab.ds.pk Nitrofurantoin Monohyd/M-Cryst [Macrobid 100 mg Capsule] 100 mg PO BID #10 cap Nystatin TOP POWDER* 1 applic TOPICAL BID #1 btl Patient Education Materials: Psoriasis (ED), Yeast Infection (ED) Referrals: Urban Gleason MD [Primary Care Provider] - Additional Instructions: Stop doxycycline. Follow-up with your rac specialist regarding ongoing treatment of your psoriasis. Sun exposure may help. Return with fever, increased discomfort, worse, new symptoms or other concerns. Do not start steroids while fungal rash is still present. - Billing Disposition and Condition Condition: IMPROVED Disposition: Home - Attestation Statements Document Initiated by Josephine: Yes Documenting Scribe: Lefty Kessler Provider For Whom Josephine is Documenting (Include Credential): Manuel Navarro MD Scribe Attestation: Lefty Ann, scribed for Manuel Navarro MD on 02/28/18 at 1702. Scribe Documentation Reviewed: Yes Provider Attestation: The documentation as recorded by the Lefty sanchez accurately reflects the service I personally performed and the decisions made by , Manuel Navarro MD
[2018-02-28 12:41] VITALS: BP 138/82
== END | disposition home or self-care (01) ==
LOC: ED 11:47
DX: N39.0 Urinary tract infection, site not specified (principal); L40.9 Psoriasis, unspecified; L30.4 Erythema intertrigo; F17.210 Nicotine dependence, cigarettes, uncomplicated
CPT/HCPCS: 99282

== ENCOUNTER 2018-07-12 19:46 | Emergency (ER) | payer OTHER ==
[2018-07-12] MEDS ORDERED: Morphine VIAL* 10 MG/ML 1 ML VIAL IV ONE (21:06)
[2018-07-12] MEDS ORDERED: Morphine VIAL* 4 MG/ML VIAL (1 ml vial) IV ONE (21:06)
[2018-07-12] MEDS ORDERED: NS 0.9% 1000 ML** 2,000 ML IV ONE (21:06)
--- NOTE | 2018-07-12 21:07 | ED ---
Abdominal Pain/Female - HPI Summary HPI Summary: A 43 y/o F presents to ED with abd pain onset this AM. Pt says she felt fine yesterday, but woke up this morning with abd pain. As the day progressed, she experienced increasing bilat LE edema, as well as n/v 3x. She previously had a cholecystectomy, but has not had an appy nor surgery on her bowels. Pert PMHx: kidney stones, GERD. She states today's abd pain is not similar to the pain she had with her kidney stones and gallbladder. She has a diffuse rash that is consistent with her psoriasis. - History of Current Complaint Chief Complaint: EDAbdPain Stated Complaint: ABD PAIN Time Seen by Provider: 07/12/18 21:01 Hx Obtained From: Patient Hx Last Menstrual Period: [id number] Onset/Duration: Lasting Hours - onset this AM, Still Present Timing: Constant Severity Initially: Moderate Severity Currently: Severe Pain Intensity: 9 Pain Scale Used: 0-10 Numeric Location: Diffuse Associated Signs and Symptoms: Positive: Nausea, Vomiting, Other: - pos: bilat LE edema Allergies/Adverse Reactions: Allergies Allergy/AdvReac Type Severity Reaction Status Date / Time amoxicillin Allergy Rash Verified 07/12/18 20:08 ceftriaxone Allergy Rash And Verified 07/12/18 20:08 Itching ciprofloxacin Allergy Difficulty Verified 07/12/18 20:08 Breathing hydrocodone Allergy Difficulty Verified 07/12/18 20:08 Breathing ketorolac [From Toradol] Allergy See Comment Verified 07/12/18 20:08 Sulfa (Sulfonamide Allergy Difficulty Verified 07/12/18 20:08 Antibiotics) Breathing PMH/Surg Hx/FS Hx/Imm Hx Previously Healthy: No Endocrine/Hematology History: Reports: Other Endocrine/Hematological Disorders - psoriasis Denies: Hx Anticoagulant Therapy, Hx Blood Disorders, Hx Diabetes, Hx Thyroid Disease, Hx Unexplained Bleeding Cardiovascular History: Denies: Hx Congestive Heart Failure, Hx Hypertension Respiratory History: Denies: Hx Asthma, Hx Chronic Obstructive Pulmonary Disease (COPD) GI History: Reports: Hx Gastroesophageal Reflux Disease, Other GI Disorders Denies: Hx Ulcer History: Reports: Hx Kidney Stones, Other Problems/Disorders - Hx OF KIDNEY STONES, OVARIAN CYSTS Denies: Hx Dialysis, Hx Renal Disease Musculoskeletal History: Reports: Other Musculoskeletal History - psoriasis Denies: Hx Rheumatoid Arthritis, Hx Osteoporosis Sensory History: Denies: Hx Contacts or Glasses, Hx Hearing Aid Opthamlomology History: Denies: Hx Contacts or Glasses Psychiatric History: Denies: Hx of Violent Episodes Against Others - Surgical History Surgery Procedure, Year, and Place: 2001 gall bladder removed, t&a - Immunization History Date of Tetanus Vaccine: PT STATES THAT SHE IS UNSURE Date of Influenza Vaccine: NONE Infectious Disease History: No Infectious Disease History: Denies: Hx Clostridium Difficile, Hx Hepatitis, Hx Human Immunodeficiency Virus (HIV), Hx Shingles, Hx Tuberculosis, Hx Known/Suspected VRE, Hx Known/ Suspected VRSA, History Other Infectious Disease, Traveled Outside the [place] in Last 30 Days - Family History Known Family History: Positive: Diabetes Negative: Cardiac Disease - Social History Occupation: Employed Full-time Lives: With Family Alcohol Use: Rare Hx Substance Use: No Substance Use Type: Reports: None Hx Tobacco Use: Yes Smoking Status (MU): Light Every Day Tobacco Smoker Type: Cigarettes Amount Used/How Often: 3 cigs day Have You Smoked in the Last Year: Yes Review of Systems Negative: Fever Positive: Abdominal Pain, Vomiting, Nausea Positive: Edema - bilat LE All Other Systems Reviewed And Are Negative: Yes Physical Exam - Summary Physical Exam Summary: Appearance: Well-appearing, obese, lying in bed comfortably Skin: Warm, dry. Diffuse and numerous regions with scaling consistent with psoriasis Eyes: sclera anicteric, no conjunctival pallor ENT: mucous membranes moist, pharynx appears normal Neck: Supple, nontender Respiratory: Clear to auscultation, no signs of respiratory distress Cardiovascular: Normal S1, S2. No murmurs. Normal distal pulses in tibial and radial bilaterally. Abdomen: Morbidly obese. No marked bowel sound. RLQ tenderness with rebound. Musculoskeletal: Normal, Strength/ROM Intact Neurological: A&Ox3, awake and alert, mentation is normal, speech is fluent and appropriate Psychiatric: affect is normal, does not appear anxious or depressed Triage Information Reviewed: Yes Vital Signs On Initial Exam: Initial Vitals Temp Pulse Resp BP Pulse Ox 97.9 F 83 16 134/66 95 07/12/18 20:05 07/12/18 20:05 07/12/18 20:05 07/12/18 20:05 07/12/18 20:05 Vital Signs Reviewed: Yes Diagnostics - Vital Signs Vital Signs Temp Pulse Resp BP Pulse Ox 07/12/18 20:05 97.9 F 83 16 134/66 95 - Laboratory Result Diagrams: 07/12/18 22:49 07/12/18 22:49 Lab Statement: Any lab studies that have been ordered have been reviewed, and results considered in the medical decision making process. - CT A/P CT Interpretation Completed By: Radiologist Summary of CT Findings: IMPRESSION: 1. Status post cholecystectomy. 2. Otherwise negative CT abdomen/pelvis with little change from 01/14/2018. A normal appendix is seen. ED provider has reviewed this report. - EKG 21:20 Cardiac Rate: NL - 75 EKG Rhythm: Sinus Rhythm Summary of EKG Findings: NSR at 75 BPM, P waves, QRS complex, and T waves are within normal limits, T waves and intervals are normal, no ischemic changes. Re-Evaluation - Re-Evaluation 1 Re-Evaluation Time: 00:40 Change: Improved Comment: Discussing CT results with pt and plan for discharge. Abdominal Pain Fem Course/Dx - Course Course Of Treatment: Pt is a morbidly obese 43 y/o F presenting with abd pain onset this AM. Pt felt fine yesterday. As the day progressed, she experienced increasing bilat LE edema, as well as n/v 3x. She previously had a cholecystectomy, but has not had an appy nor surgery on her bowels. Pert PMHx: kidney stones, GERD. She has a diffuse rash that is consistent with her psoriasis. Blood work is unremarkable. UA results show 1+ blood, elevated specific gravity, and squamous epithelia present. EKG shows NSR at 75 BPM, P waves, QRS complex, and T waves are within normal limits, T waves and intervals are normal, no ischemic changes. A/P CT is unremarkable. - Diagnoses Provider Diagnoses: Acute abdominal pain Discharge - Sign-Out/Discharge Documenting (check all that apply): Patient Departure - D/C - Discharge Plan Condition: Good Disposition: HOME Patient Education Materials: Acute Abdominal Pain (ED) Forms: *Work Release Referrals: Urban Gleason MD [Primary Care Provider] - 2 Days (if not better ) Additional Instructions: The extensive testing we did tonight did not turn up anything worrisome, specifically there is no sign of appendicitis. You can take tylenol or motrin for pain and if it persists check with your regular doctor. - Billing Disposition and Condition Condition: GOOD Disposition: Home - Attestation Statements Document Initiated by Scribfalguni: Yes Documenting Scribe: Ryan Pappas Provider For Whom Daniel is Documenting (Include Credential): Dr. Justice Xie MD Scribe Attestation: I, Ryan Pappas, scribed for Dr. Justice Xie MD on 07/13/18 at 0522. Scribe Documentation Reviewed: Yes Provider Attestation: The documentation as recorded by the daniel, Ryan Pappas accurately reflects the service I personally performed and the decisions made by me, Dr. Justice Xie MD Status of Scribe Document: Viewed
[2018-07-12 22:59] LABS: ABS Basophils 0 10^3/ul (0-0.2); ABS Eosinophils 0.2 10^3/ul (0-0.6); ABS Lymphocytes 2.3 10^3/ul (1.0-4.8); ABS Monocytes 0.4 10^3/ul (0-0.8); ABS Neutrophils 4.2 10^3/ul (1.5-7.7); ABS Nucleated RBC 0 10^3/ul; Eosinophil % 2.7 %; Hematocrit 42 % (35-47); Hemoglobin 13.9 g/dl (12.0-16.0); Lymphocyte % 32.6 %; Mean Corpuscular HGB Conc 33 g/dl (31-36); Mean Corpuscular Hemoglobin 29 pg (27-31); Mean Corpuscular Volume 88 fL (80-97); Mean Platelet Volume 8.2 fL (7.4-10.4); Nucleated Red Blood Cells % 0.1; Platelet Count 179 10^3/ul (150-450); Red Blood Count 4.81 10^6/ul (4.00-5.40); Red Cell Distribution Width 13 % (10.5-15); White Blood Count 7.2 10^3/ul (3.5-10.8)
[2018-07-12 23:17] LABS: ALT 65 U/L (7-52); AST 33 U/L (13-39); Albumin 3.6 g/dL (3.2-5.2); Albumin/Globulin Ratio 1.3 (1-3); Alkaline Phosphatase 75 U/L (34-104); Anion Gap 4 mmol/L (2-11); BUN/Creatinine Ratio 16.3 (8-20); Blood Urea Nitrogen 15 mg/dL (6-24); CO2 Carbon Dioxide 26 mmol/L (22-32); Calcium 8.3 mg/dL (8.6-10.3); Chloride 106 mmol/L (101-111); EGFR African American 81.4 (>60); EGFR Non-African American 67.3 (>60); Globulin 2.7 g/dL (2-4); Glucose 114 mg/dL (70-100); Sodium 136 mmol/L (135-145); Total Protein 6.3 g/dL (6.4-8.9)
[2018-07-12 23:24] LABS: HCG Pregnancy < 0.60 mIU/mL
[2018-07-12] MEDS ORDERED: Iohexol 300* (CONTRAST) 10 ML SDV IV ONE (23:33)
[2018-07-13 00:23] LABS: Urine Appearance Cloudy; Urine Bacteria Absent (Absent); Urine Bilirubin Negative (Negative); Urine Blood 1+ (Negative); Urine Color Yellow; Urine Glucose Negative (Negative); Urine Ketones Negative (Negative); Urine Nitrite Negative (Negative); Urine Protein Negative (Negative); Urine Red Blood Cell Trace(0-2/hpf) (Absent); Urine Specific Gravity 1.036 (1.010-1.030); Urine Squamous Epithelial Cell Present (Absent); Urine Urobilinogen Negative (Negative); Urine White Blood Cell Absent (Absent)
[2018-07-13 00:57] VITALS: BP 121/77
== END 2018-07-13 00:57 | disposition home or self-care (01) ==
LOC: ED 19:46
DX: R10.9 Unspecified abdominal pain (principal); R11.2 Nausea with vomiting, unspecified; Z88.0 Allergy status to penicillin; Z88.2 Allergy status to sulfonamides; F17.210 Nicotine dependence, cigarettes, uncomplicated
CPT/HCPCS: 36415; 74177; 80053; 81003; 81015; 83690; 84702; 85025; 93005; 96361; 96374; 96375; 99283; J2270; Q9967

== ENCOUNTER 2018-11-12 13:46 | Emergency (ER) | payer OTHER ==
[2018-11-12] MEDS ORDERED: NS 0.9% 1000 ML** 1,000 ML IV ONE (14:10)
--- NOTE | 2018-11-12 14:11 | ED ---
Abdominal Pain/Female - HPI Summary HPI Summary: 43 year old F presenting to [facility] with a chief complaint of right flank pain since five days ago, worse since today. The patient rates the pain 10/10 in severity. Symptoms aggravated by nothing. Symptoms alleviated by nothing. Patient reports bladder pain, dysuria, nausea, vomiting, fatigue, BLE swelling. Patient was seen by her primary care provider three days ago, diagnosed with bladder infection, and prescribed Macrobid. Patient has hx kidney stones, last one being 4-5 years ago. - History of Current Complaint Chief Complaint: EDFlankPain Stated Complaint: FLANK PAIN PER PT Time Seen by Provider: 11/12/18 14:02 Hx Obtained From: Patient Onset/Duration: Lasting Days - 5, Still Present, Worse Since - today Timing: Constant Severity Currently: Severe Pain Intensity: 10 Pain Scale Used: 0-10 Numeric Location: Flank - right Aggravating Factor(s): Nothing Alleviating Factor(s): Nothing Associated Signs and Symptoms: Positive: Other: - bladder pain, dysuria, nausea , vomiting, fatigue, BLE swelling Allergies/Adverse Reactions: Allergies Allergy/AdvReac Type Severity Reaction Status Date / Time amoxicillin Allergy Rash Verified 11/12/18 13:48 ceftriaxone Allergy Rash And Verified 11/12/18 13:48 Itching ciprofloxacin Allergy Difficulty Verified 11/12/18 13:48 Breathing hydrocodone Allergy Difficulty Verified 11/12/18 13:48 Breathing ketorolac [From Toradol] Allergy See Comment Verified 11/12/18 13:48 Sulfa (Sulfonamide Allergy Difficulty Verified 11/12/18 13:48 Antibiotics) Breathing Home Medications: Home Medications Triamcinolone 0.5% CREAM(NF) [Triamcinolone 0.5% CREAM*] 1 applic TOPICAL BID [History Confirmed 11/12/18] PMH/Surg Hx/FS Hx/Imm Hx Previously Healthy: No Endocrine/Hematology History: Reports: Other Endocrine/Hematological Disorders - psoriasis Denies: Hx Anticoagulant Therapy, Hx Blood Disorders, Hx Diabetes, Hx Thyroid Disease, Hx Unexplained Bleeding Cardiovascular History: Denies: Hx Congestive Heart Failure, Hx Hypertension Respiratory History: Denies: Hx Asthma, Hx Chronic Obstructive Pulmonary Disease (COPD) GI History: Reports: Hx Gastroesophageal Reflux Disease, Other GI Disorders Denies: Hx Ulcer History: Reports: Hx Kidney Stones, Other Problems/Disorders - Hx OF KIDNEY STONES, OVARIAN CYSTS Denies: Hx Dialysis, Hx Renal Disease Musculoskeletal History: Reports: Other Musculoskeletal History - psoriasis Denies: Hx Rheumatoid Arthritis, Hx Osteoporosis Sensory History: Reports: Hx Contacts or Glasses Denies: Hx Hearing Aid Opthamlomology History: Reports: Hx Contacts or Glasses Psychiatric History: Denies: Hx of Violent Episodes Against Others - Surgical History Surgery Procedure, Year, and Place: 2001 gall bladder removed, t&a - Immunization History Date of Tetanus Vaccine: PT STATES THAT SHE IS UNSURE Date of Influenza Vaccine: NONE Infectious Disease History: No Infectious Disease History: Denies: Hx Clostridium Difficile, Hx Hepatitis, Hx Human Immunodeficiency Virus (HIV), Hx Shingles, Hx Tuberculosis, Hx Known/Suspected VRE, Hx Known/ Suspected VRSA, History Other Infectious Disease, Traveled Outside the [place] in Last 30 Days - Family History Known Family History: Positive: Diabetes Negative: Cardiac Disease - Social History Alcohol Use: Rare Hx Substance Use: No Substance Use Type: Reports: None Hx Tobacco Use: Yes Smoking Status (MU): Light Every Day Tobacco Smoker Type: Cigarettes Amount Used/How Often: 3 cigs day Have You Smoked in the Last Year: Yes Review of Systems Positive: Fatigue Positive: Vomiting, Nausea Positive: dysuria, flank pain - right, other - bladder pain Positive: Other - BLE swelling All Other Systems Reviewed And Are Negative: Yes Physical Exam - Summary Physical Exam Summary: VITAL SIGNS: Reviewed. GENERAL: Patient is a morbidly obese female who is lying comfortable in the stretcher. Patient is not in any acute respiratory distress. HEAD AND FACE: Normocephalic and atraumatic. EYES: PERRLA, EOMI x 2, No injected conjunctiva. EARS: Hearing grossly intact. Ear canals and tympanic membranes are WNL. MOUTH: Oropharynx within normal limits. NECK: Supple, trachea is midline, no adenopathy, no JVD. CHEST: Symmetric, no tenderness at palpation LUNGS: Clear to auscultation bilaterally. No wheezing or crackles. CVS: RRR, S1 and S2 present, no murmurs or gallops appreciated. ABDOMEN: Lower abdomen and right costovertebral tenderness. No signs of distention. Positive bowel sounds. No rebound no guarding, and no masses palpated. No abdominal bruit or pulsations. EXTREMITIES: FROM in all major joints, no edema, no cyanosis or clubbing. NEURO: Alert and oriented x 3. No acute neurological deficits. Speech is normal. SKIN: She has rashes all over her body secondary to psoriasis Triage Information Reviewed: Yes Vital Signs On Initial Exam: Initial Vitals Temp Pulse Resp BP Pulse Ox 97.7 F 83 20 162/95 98 11/12/18 13:46 11/12/18 13:46 11/12/18 13:46 11/12/18 13:46 11/12/18 13:46 Vital Signs Reviewed: Yes Diagnostics - Vital Signs Vital Signs Temp Pulse Resp BP Pulse Ox 11/12/18 13:46 97.7 F 83 20 162/95 98 - Laboratory Result Diagrams: 11/12/18 14:19 11/12/18 14:19 Lab Statement: Any lab studies that have been ordered have been reviewed, and results considered in the medical decision making process. - CT Abd/Pel CT Interpretation Completed By: Radiologist Summary of CT Findings: NO HYDRONEPHROSIS OR NEPHROLITHIASIS. ED physician has reviewed this report. Re-Evaluation - Re-Evaluation First Eval Re-Evaluation Time: 16:22 Comment: Patient was updated on plan of care. She is agreeable to discharge. Abdominal Pain Fem Course/Dx - Course Course Of Treatment: 43 year old F presenting to [facility] with a chief complaint of flank pain since five days ago, worse since today. The patient rates the pain 10/10 in severity. Symptoms aggravated by nothing. Symptoms alleviated by nothing. Patient reports bladder pain, dysuria, nausea, vomiting, fatigue, BLE swelling. Patient was seen by her primary care provider three days ago, diagnosed with bladder infection, and prescribed Macrobid. Patient has hx kidney stones, last one being 4-5 years ago. In the ED course the patient was given IV fluids. Blood test results without any significant abnormality except for glucose of 120, AST and ALTs slightly elevated. Urinalysis positive for UTI. Abdominal pelvic CT impression: No hydronephrosis or nephrolithiasis. The patient has already been taking nitrofurantoin for more than 6 days and it seems that is not working for her. Therefore, looking in to her history in the chart, the patient is allergic to most antibiotics. She had in the past one episode of UTI for which the patient was treated with doxycycline. In the last few weaned cultures, the patient was susceptible for tetracycline therefore we can use the doxycycline at this time. However, I instructed the patient to return to the emergency department if the symptoms worsen, if she develops any fever, nausea and vomiting, increases in pain or if she has any other problems. In the ED course, the patient was given 1 dose of doxycycline and I offered 1 dose of Toradol. The patient declined the Toradol. Therefore the patient will be discharged home with follow-up with PCP. Patient is hemodynamically stable alert and oriented 3. - Diagnoses Provider Diagnoses: UTI (urinary tract infection) Discharge - Sign-Out/Discharge Documenting (check all that apply): Patient Departure - Discharge Patient Received Moderate/Deep Sedation with Procedure: No - Discharge Plan Condition: Stable Disposition: HOME Prescriptions: DOXYcycline CAP(*) [DOXYcycline 100MG CAP(*)] 100 mg PO BID #20 cap Patient Education Materials: Urinary Tract Infection in Women (ED) Referrals: Urban Gleason MD [Primary Care Provider] - 3 Days Additional Instructions: Follow up with your primary care provider in 3 days. Return to the Emergency Department for new or worsening symptoms. - Billing Disposition and Condition Condition: STABLE Disposition: Home - Attestation Statements Document Initiated by Josephine: Yes Documenting Scribe: Abigail Maciel Provider For Whom Josephine is Documenting (Include Credential): Rudy De La Cruz MD Scribe Attestation: IAbigail, scribed for Rudy De La Cruz MD on 11/12/18 at 1855. Scribe Documentation Reviewed: Yes Provider Attestation: The documentation as recorded by the Abigail sanchez accurately reflects the service I personally performed and the decisions made by me, Rudy De La Cruz MD Status of Scribe Document: Viewed
[2018-11-12 14:35] LABS: ABS Basophils 0.1 10^3/ul (0-0.2); ABS Eosinophils 0.2 10^3/ul (0-0.6); ABS Lymphocytes 2.1 10^3/ul (1.0-4.8); ABS Monocytes 0.3 10^3/ul (0-0.8); ABS Neutrophils 3.3 10^3/ul (1.5-7.7); Eosinophil % 4.1 %; Hematocrit 45 % (35-47); Lymphocyte % 35.1 %; Mean Corpuscular HGB Conc 34 g/dL (31-36); Mean Corpuscular Hemoglobin 29 pg (27-31); Mean Corpuscular Volume 87 fL (80-97); Mean Platelet Volume 8.2 fL (7.4-10.4); Nucleated Red Blood Cells % 0.1; Platelet Count 197 10^3/uL (150-450); Red Blood Count 5.16 10^6 /uL (3.70-4.87); Red Cell Distribution Width 14 % (10.5-15); White Blood Count 6.1 10^3/uL (3.5-10.8)
[2018-11-12 14:50] LABS: Albumin/Globulin Ratio 1.3 (1-3); BUN/Creatinine Ratio 10.1 (8-20); C Reactive Protein 2.47 mg/L (<8.01); Calcium 8.8 mg/dL (8.6-10.3); EGFR Non-African American 80.2 (>60); Potassium 4.1 mmol/L (3.5-5.0); Total Bilirubin 0.6 mg/dL (0.2-1.0)
[2018-11-12 15:32] LABS: Urine Appearance Cloudy; Urine Bacteria Absent (Absent); Urine Bilirubin Negative (Negative); Urine Blood 1+ (Negative); Urine Color Yellow; Urine Glucose Negative (Negative); Urine Ketones Negative (Negative); Urine Nitrite Negative (Negative); Urine Protein Negative (Negative); Urine Red Blood Cell 2+(6-10/hpf) (Absent); Urine Specific Gravity 1.016 (1.010-1.030); Urine Squamous Epithelial Cell Present (Absent); Urine Urobilinogen Negative (Negative); Urine White Blood Cell 3+(>20/hpf) (Absent)
[2018-11-12] MEDS ORDERED: DOXYcycline CAP(*) 100 MG PO ONE (17:07)
[2018-11-12] MEDS ORDERED: Ketorolac INJ* 30 MG/ML 1 ML VIAL IV PUSH ONE (17:09)
[2018-11-12 17:22] VITALS: BP 142/82
== END 2018-11-12 17:22 | disposition home or self-care (01) ==
LOC: ED 13:46
DX: N39.0 Urinary tract infection, site not specified (principal); R10.84 Generalized abdominal pain; R11.2 Nausea with vomiting, unspecified; Z88.0 Allergy status to penicillin; K21.9 Gastro-esophageal reflux disease without esophagitis; Z87.442 Personal history of urinary calculi; F17.210 Nicotine dependence, cigarettes, uncomplicated; R30.0 Dysuria
CPT/HCPCS: 36415; 74176; 80053; 81003; 81015; 82550; 83605; 83690; 85025; 86140; 87086; 99283; A9270-GY

== ENCOUNTER 2018-12-29 20:07 | Emergency (ER) | payer OTHER ==
[2018-12-29] MEDS ORDERED: Acetaminophen TAB* 325 MG PO ONE (23:53)
--- NOTE | 2018-12-29 23:55 | ED ---
Abdominal Pain/Female - HPI Summary HPI Summary: Patient complains of bilateral lower abdominal pain, bilateral lower back pain and vaginal spotting starting today. Abdominal pain and back pain intermittent , crampy. Denies fever, cough, sore throat, CP, SOB, N/V/D, change in urine, change in BM, vaginal symptoms. Medical history is none. Abdominal surgical history is cholecystectomy. - History of Current Complaint Chief Complaint: EDAbdPain Stated Complaint: BLADDER PAIN WITH BLEEDING PER PT Time Seen by Provider: 12/29/18 23:43 Hx Obtained From: Patient Hx Last Menstrual Period: May 2018 Onset/Duration: Sudden Onset, Lasting Hours Timing: Intermittent Episode Lasting Severity Initially: Moderate Severity Currently: Severe Pain Intensity: 9 Pain Scale Used: 0-10 Numeric Location: Discrete At: RLQ, Discrete At: LLQ, Suprapubic Radiates: Yes Radiates to: Back Character: Cramping Aggravating Factor(s): Movement Alleviating Factor(s): Nothing Associated Signs and Symptoms: Positive: Negative Allergies/Adverse Reactions: Allergies Allergy/AdvReac Type Severity Reaction Status Date / Time amoxicillin Allergy Rash Verified 12/29/18 20:14 ceftriaxone Allergy Rash And Verified 12/29/18 20:14 Itching ciprofloxacin Allergy Difficulty Verified 12/29/18 20:14 Breathing hydrocodone Allergy Difficulty Verified 12/29/18 20:14 Breathing ketorolac [From Toradol] Allergy See Comment Verified 12/29/18 20:14 Sulfa (Sulfonamide Allergy Difficulty Verified 12/29/18 20:14 Antibiotics) Breathing PMH/Surg Hx/FS Hx/Imm Hx Endocrine/Hematology History: Reports: Other Endocrine/Hematological Disorders - psoriasis Denies: Hx Anticoagulant Therapy, Hx Blood Disorders, Hx Diabetes, Hx Thyroid Disease, Hx Unexplained Bleeding Cardiovascular History: Denies: Hx Congestive Heart Failure, Hx Hypertension Respiratory History: Denies: Hx Asthma, Hx Chronic Obstructive Pulmonary Disease (COPD) GI History: Reports: Hx Gastroesophageal Reflux Disease, Other GI Disorders Denies: Hx Ulcer History: Reports: Hx Kidney Stones, Other Problems/Disorders - Hx OF KIDNEY STONES, OVARIAN CYSTS Denies: Hx Dialysis, Hx Renal Disease Musculoskeletal History: Reports: Other Musculoskeletal History - psoriasis Denies: Hx Rheumatoid Arthritis, Hx Osteoporosis Sensory History: Reports: Hx Contacts or Glasses Denies: Hx Hearing Aid Opthamlomology History: Reports: Hx Contacts or Glasses Neurological History: Denies: Hx Dementia Psychiatric History: Denies: Hx Autism, Hx of Violent Episodes Against Others - Surgical History Surgery Procedure, Year, and Place: 2001 gall bladder removed, t&a - Immunization History Date of Tetanus Vaccine: PT STATES THAT SHE IS UNSURE Date of Influenza Vaccine: NONE Immunizations Up to Date: Yes Infectious Disease History: No Infectious Disease History: Denies: Hx Clostridium Difficile, Hx Hepatitis, Hx Human Immunodeficiency Virus (HIV), Hx Shingles, Hx Tuberculosis, Hx Known/Suspected VRE, Hx Known/ Suspected VRSA, History Other Infectious Disease, Traveled Outside the [place] in Last 30 Days - Family History Known Family History: Positive: Diabetes Negative: Cardiac Disease - Social History Alcohol Use: Rare Hx Substance Use: No Substance Use Type: Reports: None Hx Tobacco Use: Yes Smoking Status (MU): Light Every Day Tobacco Smoker Type: Cigarettes Amount Used/How Often: 3 cigs day Have You Smoked in the Last Year: Yes Review of Systems Constitutional: Negative Eyes: Negative ENT: Negative Cardiovascular: Negative Respiratory: Negative Positive: Abdominal Pain Genitourinary: Negative Musculoskeletal: Negative Skin: Negative Neurological: Negative Psychological: Normal All Other Systems Reviewed And Are Negative: Yes Physical Exam - Summary Physical Exam Summary: Patient obese, however no pain with palpation of abdomen. Triage Information Reviewed: Yes Vital Signs On Initial Exam: Initial Vitals Temp Pulse Resp BP Pulse Ox 98.1 F 60 20 123/81 97 12/29/18 20:10 12/29/18 20:10 12/29/18 20:10 12/29/18 20:10 12/29/18 20:10 Vital Signs Reviewed: Yes Appearance: Positive: Well-Appearing Skin: Positive: Warm Head/Face: Positive: Normal Head/Face Inspection Eyes: Positive: Normal Neck: Positive: Supple Respiratory/Lung Sounds: Positive: Clear to Auscultation Cardiovascular: Positive: Normal Abdomen Description: Positive: Nontender Musculoskeletal: Positive: Normal Neurological: Positive: Normal Psychiatric: Positive: Normal AVPU Assessment: Alert - [place] Coma Scale Best Eye Response: 4 - Spontaneous Best Motor Response: 6 - Obeys Commands Best Verbal Response: 5 - Oriented Coma Scale Total: 15 Diagnostics - Vital Signs Vital Signs Temp Pulse Resp BP Pulse Ox 12/29/18 20:10 98.1 F 60 20 123/81 97 - Laboratory Result Diagrams: 12/30/18 00:00 12/30/18 00:00 Lab Statement: Any lab studies that have been ordered have been reviewed, and results considered in the medical decision making process. Abdominal Pain Fem Course/Dx - Course Course Of Treatment: Patient complains of bilateral lower abdominal pain, bilateral lower back pain and vaginal spotting starting today. Abdominal pain and back pain intermittent, crampy. Denies fever, cough, sore throat, CP, SOB, N/V/D, change in urine, change in BM, vaginal symptoms. Medical history is none. Abdominal surgical history is cholecystectomy. Vital signs within normal limits. Labs unremarkable. Transvaginal ultrasound was nondiagnostic due to limited exam as a result the patient discomfort. UA positive for UTI and possible yeast infection of the vagina. Patient deferred pelvic exam at this time. Patient will be started on Macrobid for UTI and Diflucan 150 mg by mouth 1. If symptoms persist patient will start fluconazole 200 mg daily for 14 days. Patient understands and approves of plan. - Diagnoses Provider Diagnoses: UTI (urinary tract infection), Yeast infection Discharge - Sign-Out/Discharge Documenting (check all that apply): Patient Departure Patient Received Moderate/Deep Sedation with Procedure: No - Discharge Plan Condition: Stable Disposition: HOME Prescriptions: Fluconazole [Fluconazole 200 mg tab] 200 mg PO DAILY 14 Days #14 tablet Nitrofurantoin Macrocrystals* [Macrodantin 100 mg*] 100 mg PO BID 5 Days #10 cap Phenazopyridine TAB* [Pyridium 100 mg TAB*] 100 mg PO TID 2 Days #6 tab Patient Education Materials: Urinary Tract Infection in Women (ED), Yeast Infection (ED) Forms: *Work Release Referrals: Urban Gleason MD [Primary Care Provider] - Additional Instructions: Taking Macrobid for UTI. If symptoms do not improve within a couple days start taking fluconazole 200 mg daily for 14 days. Follow-up with primary care. - Billing Disposition and Condition Condition: STABLE Disposition: Home
[2018-12-30 00:08] LABS: ABS Basophils 0.1 10^3/ul (0-0.2); ABS Eosinophils 0.1 10^3/ul (0-0.6); ABS Lymphocytes 2.6 10^3/ul (1.0-4.8); ABS Monocytes 0.5 10^3/ul (0-0.8); ABS Neutrophils 4.5 10^3/ul (1.5-7.7); Eosinophil % 1.6 %; Hematocrit 44 % (35-47); Hemoglobin 14.6 g/dL (12.0-16.0); Lymphocyte % 33.8 %; Mean Corpuscular HGB Conc 33 g/dL (31-36); Mean Corpuscular Hemoglobin 29 pg (27-31); Mean Corpuscular Volume 88 fL (80-97); Mean Platelet Volume 8.7 fL (7.4-10.4); Platelet Count 173 10^3/uL (150-450); Red Blood Count 5.04 10^6 /uL (3.70-4.87); Red Cell Distribution Width 14 % (10-15); White Blood Count 7.8 10^3/uL (3.5-10.8)
[2018-12-30 00:14] LABS: INR 1.01 (0.82-1.09)
[2018-12-30 00:18] LABS: Urine Appearance Turbid; Urine Bacteria 1+ (Absent); Urine Bilirubin Negative (Negative); Urine Blood 3+ (Negative); Urine Color Amber; Urine Glucose Negative (Negative); Urine Ketones Negative (Negative); Urine Nitrite Negative (Negative); Urine Protein Negative (Negative); Urine Red Blood Cell 3+(>10/hpf) (Absent); Urine Specific Gravity 1.027 (1.010-1.030); Urine Squamous Epithelial Cell Present (Absent); Urine Urobilinogen Negative (Negative); Urine White Blood Cell 3+(>20/hpf) (Absent)
[2018-12-30 00:26] LABS: Albumin/Globulin Ratio 1.5 (1-3); BUN/Creatinine Ratio 18.5 (8-20); C Reactive Protein 1.67 mg/L (<8.01); Calcium 9.5 mg/dL (8.6-10.3); EGFR African American 94.3 (>60); EGFR Non-African American 77.9 (>60); Globulin 2.7 g/dL (2-4); Potassium 3.9 mmol/L (3.5-5.0); Total Bilirubin 0.6 mg/dL (0.2-1.0); Total Protein 6.7 g/dL (6.4-8.9)
[2018-12-30 00:31] LABS: HCG Pregnancy 0.64 mIU/mL
[2018-12-30] MEDS ORDERED: Nitrofurantoin Macrocrystals* 50 MG CAP PO ONE (01:19)
[2018-12-30] MEDS ORDERED: Phenazopyridine TAB* 100 MG PO ONE (01:37)
[2018-12-30] MEDS ORDERED: oxyCODONE TAB* 5 MG TAB PO ONE (01:39)
[2018-12-30] MEDS ORDERED: Nitrofurantoin Macrocrystals* 100 MG CAP PO ONE (01:40)
[2018-12-30] MEDS ORDERED: Fluconazole 150 MG TAB PO ONE (01:40)
[2018-12-30 02:18] VITALS: BP 118/83
== END 2018-12-30 02:17 | disposition home or self-care (01) ==
LOC: ED 20:07
DX: N39.0 Urinary tract infection, site not specified (principal); B37.3 Candidiasis of vulva and vagina; F17.210 Nicotine dependence, cigarettes, uncomplicated; Z88.1 Allergy status to other antibiotic agents; Z88.5 Allergy status to narcotic agent; Z88.2 Allergy status to sulfonamides
CPT/HCPCS: 36415; 76830; 80053; 81003; 81015; 84702; 85025; 85610; 86140; 87086; 99283; A9270-GY

== ENCOUNTER 2019-04-07 05:34 | Emergency (ER) | payer OTHER ==
--- OUTSIDE RECORDS SUMMARY | 2019-04-07 05:44 | XMS REPORT | Summary of Care ---
:1975 Author Organization [facility] Address [address] [place] [address] Care Team Providers Name Role Phone Urban Gleason MD Primary Care Provider Reason for Referral Refer to Department Only (Routine) Status Reason Specialty Diagnoses / Referred By Referred To Procedures Contact Contact Pending Review Physical Therapy Diagnoses Left Achilles tendinitis Kalie Kaur, CERTIFIED PHYSICIAN ASSISTANT [address] [place] [address] Reason for Visit Reason Comments Tendonitis pt states dx' with achilles tendenitis 02/07/19. painful left foot , hard to walk on, and swollen Encounter Details Date Type Department Care Team Description 02/10/2019 Office Visit [facility] Kalie Kaur, Left [facility]illes [facility] CERTIFIED PHYSICIAN ASSISTANT tendinitis (Primary [address]x) [place] [address] [place] [address] [phone] Allergies Active Allergy Reactions Severity Noted Date Comments Amoxicillin-K Rash 10/17/[address] Turpin Clavulanate-Saccharin 11/2008 Ciprofloxacin Swelling 08/16/2008 Hydrocodone Respiratory Reaction 08/16/2008 Morphine Other 12/28/2013 Headache Penicillins Unknown Reaction 12/19/2008 Sulfa Antibiotics Swelling 08/16/2008 Ketorolac Tromethamine Dermatologic Reaction 12/28/2013 documented as of this encounter (statuses as of 02/10/2019) Medications Medication Sig Dispensed Refills Start Date End Date Status esomeprazole magnesium Take 40 mg 30 Cap 11 11/04/2017 Active (NEXIUM) 40 MG Oral by mouth CAPSULE DELAYED DAILY. RELEASE triamcinolone Apply twice 90 g 5 01/21/2019 Active (KENALOG) 0.1 % Apply daily externally Ointment Naproxen 375 MG Oral Take by 0 Active Tab EC mouth. nitrofurantoin Take 100 mg 0 02/10/2019 Discontinued monohydrate by mouth macrocrystal TWICE (MACROBID) 100 MG Oral DAILY. Cap phenazopyridine Take 100 mg 0 02/10/2019 Discontinued (PYRIDIUM) 100 MG Oral by mouth Tab THREE TIMES DAILY. fluconazole (DIFLUCAN) Take 200 mg 0 02/10/2019 Discontinued 200 MG Oral Tab by mouth DAILY. documented as of this encounter (statuses as of 02/10/2019) Active Problems Problem Noted Date BISI (obstructive sleep apnea) 11/25/2012 Overview: [facility] CPAP 6 cm with heated humidificaiton Pulmonary nodule, left 09/30/2012 Overview: 2 mm stable left lower lung [facility] ct scan 09/2012 S/P cholecystectomy 09/24/2012 PID (acute pelvic inflammatory disease) 09/24/2012 Overview: Based on ct scan and pelvic exam [facility] 09/2012 im ceftriaxone and zithromax Tobacco use 09/24/2012 Overview: Quit 09/2012 restarted winter 2012December 2013 4-5 cigarette daily GERD (gastroesophageal reflux disease) 06/28/2009 Morbid obesity 10/10/2008 Overview: BMI 56 06/2009 This patient's BMI has been calculated and is above average, and BMI management plan is completed. General patient education discussion including: obesity-related excess mortality, weight loss link to reduction of risk factors for cardiac and other diseases, importance of long- term maintenance treatment in weight loss Nonalcoholic steatohepatitis 10/10/2008 Overview: Ast/alt 50-70 2008, ultrasound liver negative Non-cardiac chest pain 08/17/2008 Overview: ECG negative 08/22. Psoriasis Overview: Extensive-arms/legs/face/chest-light treatment Dr Gera FERGUSON documented as of this encounter (statuses as of 02/10/2019) Resolved Problems Problem Noted Date Resolved Date Cholelithiasis 10/10/2008 09/24/2012 Overview: S/p lap choly 2001. documented as of this encounter (statuses as of 02/10/2019) Social History Tobacco Use Types Packs/Day Years Used Date Current Every Day Smoker Cigarettes 0.5 16 Quit: 05/16/2008 Smokeless Tobacco: Never Used Alcohol Use Drinks/Week oz/Week Comments Yes occasionally Sex Assigned at Date Recorded Not on file Job Start Date Occupation Industry Not on file Not on file Not on file Travel History Travel Start Travel End No recent travel history available. documented as of this encounter Last Filed Vital Signs Vital Sign Reading Time Taken Comments Blood Pressure 136/84 02/10/2019 11:30 AM EDT Pulse 65 02/10/2019 11:30 AM EDT Temperature 37.2 02/10/2019 11:30 AM EDT C (99 F) Respiratory Rate - - Oxygen Saturation 98% 02/10/2019 11:30 AM EDT Inhaled Oxygen Concentration - - Weight 191.4 kg (422 lb) 02/10/2019 11:30 AM EDT Height 170.2 cm (5' 7") 02/10/2019 11:30 AM EDT Body Mass Index 66.09 02/10/2019 11:30 AM EDT documented in this encounter Patient Instructions Patient InstructionsKalie Kaur FNP - 02/10/2019 11:20 AM EDTHeat or ice as needed Naproxen twice a day with 2 Extra strength Tylenol PT referral done Follow up as needed documented in this encounter Progress Notes Kalie Kaur FNP - 02/10/2019 11:20 AM EDT PATIENT: Michelle Rutherford : 1975 DATE OF SERVICE: 02/10/2019 CHIEF COMPLAINT: Chief Complaint Patient presents with Tendonitis pt states dx' with achilles tendenitis 02/07/19. painful left foot, hard to walk on, and swollen Subjective HISTORY OF PRESENT ILLNESS: Michelle Rutherford is a 43-y.o. female. HPI Seen at [facility] 02/07/19 - pain left heel - did have injury to leg 2 weeks prior. Dx achilles tendonitis , Rx Naproxen - still having pain No reports to review at time of visit Past Medical History: Diagnosis Date Arthritis GERD (gastroesophageal reflux disease) Kidney stone Psoriasis Skin abnormalities Family History Problem Relation Age of Onset Diabetes Father Hay Fever Father Lupus Mother Psoriasis Mother Arthritis Mother Diabetes Brother Anesth Problems No family history Cancer No family history Clotting Disorder No family history Heart Disease No family history Hypertension No family history Kidney Disease No family history Thyroid Disease No family history Current Outpatient Medications Medication Sig esomeprazole magnesium (NEXIUM) 40 MG Oral CAPSULE DELAYED RELEASE Take 40 mg by mouth DAILY. Naproxen 375 MG Oral Tab EC Take by mouth. triamcinolone (KENALOG) 0.1 % Apply externally Ointment Apply twice daily No current facility-administered medications for this visit. Allergies Allergen Reactions Amoxicillin-K Clavulanate-Saccharin Rash From Dr Turpin 11/2008 Ciprofloxacin Swelling Hydrocodone Respiratory Reaction Morphine Other Headache Penicillins Unknown Reaction Sulfa Antibiotics Swelling Toradol [Ketorolac Tromethamine] Dermatologic Reaction Social History Socioeconomic History Marital status: Spouse name: Not on file Number of children: Not on file Years of education: Not on file Highest education level: Not on file Occupational History Not on file Social Needs Financial resource strain: Not on file Food insecurity: Worry: Not on file Inability: Not on file Transportation needs: Medical: Not on file Non-medical: Not on file Tobacco Use Smoking status: Current Every Day Smoker Packs/day: 0.50 Years: 16.00 Pack years: 8.00 Types: Cigarettes Last attempt to quit: 05/16/2008 Years since quittin.7 Smokeless tobacco: Never Used Substance and Sexual Activity Alcohol use: Yes Comment: occasionally Drug use: No Sexual activity: Yes Partners: Male Lifestyle Physical activity: Days per week: Not on file Minutes per session: Not on file Stress: Not on file Relationships Social connections: Talks on phone: Not on file Gets together: Not on file Attends roman catholic service: Not on file Active member of club or organization: Not on file Attends meetings of clubs or organizations: Not on file Relationship status: Not on file Intimate partner violence: Fear of current or ex partner: Not on file Emotionally abused: Not on file Physically abused: Not on file Forced sexual activity: Not on file Other Topics Concern Back Care Not Asked Bike Helmet Not Asked Blood Transfusions Not Asked Caffeine Concern Not Asked Exercise Yes Comment: treadmill 30 minutes 5 days per week Hobby Hazards Not Asked International Travel Not Asked Service Not Asked Occupational Exposure Not Asked Seat Belt Not Asked Self-Exams Not Asked Sleep Concern Not Asked Special Diet No Stress Concern No Weight Concern Yes Comment: wants to get under 300 lbs Social History Narrative Lives in [facility] 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 REVIEW OF SYSTEMS: Review of Systems Constitutional: Positive for malaise/fatigue. Negative for chills and fever. Respiratory: Negative for hemoptysis. Cardiovascular: Negative for chest pain and leg swelling. Musculoskeletal: Positive for joint pain and myalgias. Objective PHYSICAL EXAM: VITALS: BP 136/84 (BP Location: Left arm, Patient Position: Sitting) | Pulse 65 | Temp 99 F (37.2 C) | Ht 5' 7" (1.702 m) | Wt (!) 422 lb (191.4 kg) | SpO2 98% | BMI 66.09 kg/m Bodymass index is 66.09 kg/m. Physical Exam Constitutional: She is oriented to person, place, and time. Vital signs are normal. She appears well-developed and well-nourished. HENT: Head: Normocephalic and atraumatic. Eyes: Pupils are equal, round, and reactive to light. Neck: Normal range of motion. No JVD present. Musculoskeletal: Left foot: There is decreased range of motion, tenderness and swelling. Feet: Neurological: She is alert and oriented to person, place, and time. Left limp Skin: Skin is warm and dry. No ecchymosis and no rash noted. No erythema. Vitals reviewed. ASSESSMENT / IMPRESSION: ICD-9-CM ICD-10-CM 1. Left Achilles tendinitis 726.71 M76.62 REFER TO PHYSICAL THERAPY / REHAB Plan Heat or ice as needed Naproxen twice a day with 2 Extra strength Tylenol PT referral done Follow up as needed Author: CORA Monroe 02/10/2019 11:55 documented in this encounter Plan of Treatment Name Type Priority Associated Diagnoses Order Schedule REFER TO PHYSICAL Referral Routine Left Achilles 99 Occurrences starting THERAPY / REHAB tendinitis 02/10/2019 until 02/11/2020 Health Maintenance Due Date Last Done Comments PNEUMOCOCCAL 0-64 YRS (1 of 1983 1 - PPSV23) DEPRESSION SCREENING 1989 LIPID DISORDER SCREENING 1995 PAP SMEAR 10/31/2015 10/30/2012, 06/05/2012 (Previously completed) MAMMOGRAM (SCREENING) 2017 INFLUENZA VACCINE (#1) 2019 DIABETES SCREENING 08/18/2019 08/17/2018, 10/03/2015, 07/06/2014, Additional history exists HPV IMMUNIZATION SERIES Aged Out No longer eligible based on patient's age to complete this topic MENINGOCOCCAL VACCINE IMM Aged Out No longer eligible based on patient's age to complete this topic documented as of this encounter Results Not on filedocumented in this encounter Visit Diagnoses Diagnosis Left Achilles tendinitis - Primary Achilles bursitis or tendinitis documented in this encounter Guarantor Name Account Type Relation to Date of Phone Billing Patient Address Michelle Rutherford Personal/Family 1975 [phone] [phone] [place], [place] (Work) [address] documented as of this encounter
[2019-04-07] MEDS ORDERED: Morphine 4 MG/ML VIAL (1 ml) 4 MG/ML VIAL IV ONE (06:08)
[2019-04-07] MEDS ORDERED: NS 0.9% 1000 ML** 1,000 ML IV ONE (06:08)
[2019-04-07] MEDS ORDERED: Ondansetron INJ* 2 MG/ML VIAL IV ONE (06:08)
[2019-04-07 06:50] LABS: ABS Basophils 0.1 10^3/ul (0-0.2); ABS Eosinophils 0.3 10^3/ul (0-0.6); ABS Lymphocytes 1.6 10^3/ul (1.0-4.8); ABS Monocytes 0.3 10^3/ul (0-0.8); ABS Neutrophils 3.7 10^3/ul (1.5-7.7); Eosinophil % 4.6 %; Hematocrit 44 % (35-47); Hemoglobin 14.7 g/dL (12.0-16.0); Lymphocyte % 26.2 %; Mean Corpuscular HGB Conc 34 g/dL (31-36); Mean Corpuscular Hemoglobin 29 pg (27-31); Mean Corpuscular Volume 87 fL (80-97); Mean Platelet Volume 8.4 fL (7.4-10.4); Nucleated Red Blood Cells % 0.1; Platelet Count 179 10^3/uL (150-450); Red Blood Count 5.03 10^6 /uL (3.70-4.87); Red Cell Distribution Width 13 % (10-15)
[2019-04-07 07:03] LABS: ALT 47 U/L (7-52); AST 31 U/L (13-39); Albumin 3.8 g/dL (3.2-5.2); Albumin/Globulin Ratio 1.4 (1-3); Alkaline Phosphatase 80 U/L (34-104); Anion Gap 5 mmol/L (2-11); BUN/Creatinine Ratio 17.7 (8-20); Blood Urea Nitrogen 14 mg/dL (6-24); C Reactive Protein 1.95 mg/L (<8.01); CO2 Carbon Dioxide 27 mmol/L (22-32); Calcium 8.9 mg/dL (8.6-10.3); Chloride 106 mmol/L (101-111); EGFR Non-African American 80.2 (>60); Globulin 2.8 g/dL (2-4); Glucose 172 mg/dL (70-100); Magnesium 1.7 mg/dL (1.9-2.7); Potassium 4.1 mmol/L (3.5-5.0); Sodium 138 mmol/L (135-145); Total Protein 6.6 g/dL (6.4-8.9)
[2019-04-07 07:06] LABS: HCG Pregnancy < 0.60 mIU/mL
[2019-04-07] MEDS ORDERED: fentaNYL* 50 MCG/ML 2 ML VIAL (100 MCG VIAL) IV SLOW PU ONE (07:30)
[2019-04-07 09:37] LABS: Urine Appearance Cloudy; Urine Bilirubin Negative (Negative); Urine Blood Negative (Negative); Urine Color Yellow; Urine Glucose Negative (Negative); Urine Ketones Negative (Negative); Urine Nitrite Negative (Negative); Urine Protein Negative (Negative); Urine Specific Gravity 1.023 (1.010-1.030); Urine Urobilinogen Negative (Negative)
[2019-04-07 09:56] VITALS: BP 103/58
--- NOTE | 2019-04-07 10:07 | ED ---
Abdominal Pain/Female - HPI Summary HPI Summary: This patient is a 43-year-old morbidly obese female presenting to the ED with left-sided flank pain radiating to the left lower quadrant. She is also endorsing pain to the abdomen, states she has a "lump" which is approx 2cm in length, somewhat painful and non-fluctuant. This is new. States she is concerned more about the abd pain compared to the flank pain. Denies gross hematuria. Denies N/V/C/D. Denies F/S/C. No current modifying factors. - History of Current Complaint Chief Complaint: EDAbdPain Stated Complaint: L SIDED ABD PAIN PER PT Time Seen by Provider: 04/07/19 06:02 Hx Obtained From: Patient Hx Last Menstrual Period: 12/28/18 ?: No Onset/Duration: Sudden Onset Timing: Constant Severity Initially: Moderate Severity Currently: Moderate Pain Intensity: 2 Pain Scale Used: 0-10 Numeric Location: Flank Radiates: Yes Radiates to: LLQ Character: Cramping Aggravating Factor(s): Nothing Alleviating Factor(s): Nothing Associated Signs and Symptoms: Positive: Negative Allergies/Adverse Reactions: Allergies Allergy/AdvReac Type Severity Reaction Status Date / Time amoxicillin Allergy Rash Verified 04/07/19 05:36 ceftriaxone Allergy Rash And Verified 04/07/19 05:36 Itching ciprofloxacin Allergy Difficulty Verified 04/07/19 05:36 Breathing hydrocodone Allergy Difficulty Verified 04/07/19 05:36 Breathing ketorolac [From Toradol] Allergy See Comment Verified 04/07/19 05:36 Sulfa (Sulfonamide Allergy Difficulty Verified 04/07/19 05:36 Antibiotics) Breathing Home Medications: Home Medications Ibuprofen TAB* [Motrin TAB* 600 MG] 600 mg PO Q6H PRN 04/07/19 [History Confirmed 04/07/19] PMH/Surg Hx/FS Hx/Imm Hx Previously Healthy: Yes Endocrine/Hematology History: Reports: Other Endocrine/Hematological Disorders - psoriasis Denies: Hx Anticoagulant Therapy, Hx Blood Disorders, Hx Diabetes, Hx Thyroid Disease, Hx Unexplained Bleeding Cardiovascular History: Denies: Hx Congestive Heart Failure, Hx Hypertension, Hx Pacemaker/ICD Respiratory History: Denies: Hx Asthma, Hx Chronic Obstructive Pulmonary Disease (COPD) GI History: Reports: Hx Gastroesophageal Reflux Disease, Other GI Disorders Denies: Hx Ulcer History: Reports: Hx Kidney Stones, Other Problems/Disorders - Hx OF KIDNEY STONES, OVARIAN CYSTS Denies: Hx Dialysis, Hx Renal Disease Musculoskeletal History: Reports: Other Musculoskeletal History - psoriasis Denies: Hx Rheumatoid Arthritis, Hx Osteoporosis Sensory History: Reports: Hx Contacts or Glasses Denies: Hx Hearing Aid Opthamlomology History: Reports: Hx Contacts or Glasses Neurological History: Denies: Hx Dementia Psychiatric History: Denies: Hx Autism, Hx Panic Disorder, Hx of Violent Episodes Against Others - Surgical History Surgery Procedure, Year, and Place: 2001 gall bladder removed, t&a - Immunization History Date of Tetanus Vaccine: PT STATES THAT SHE IS UNSURE Date of Influenza Vaccine: NONE Hx Pertussis Vaccination: No Immunizations Up to Date: Yes Infectious Disease History: No Infectious Disease History: Denies: Hx Clostridium Difficile, Hx Hepatitis, Hx Human Immunodeficiency Virus (HIV), Hx Shingles, Hx Tuberculosis, Hx Known/Suspected VRE, Hx Known/ Suspected VRSA, History Other Infectious Disease, Traveled Outside the [place] in Last 30 Days - Family History Known Family History: Positive: Diabetes Negative: Cardiac Disease - Social History Occupation: Unemployed Alcohol Use: Occasionally Hx Substance Use: No Substance Use Type: Reports: None Hx Tobacco Use: Yes Smoking Status (MU): Former Smoker Type: Cigarettes Amount Used/How Often: 2 sig/week Have You Smoked in the Last Year: Yes Review of Systems Negative: Fever, Chills, Fatigue, Skin Diaphoresis Negative: Palpitations, Chest Pain Negative: Shortness Of Breath, Cough Positive: Abdominal Pain Positive: see HPI, flank pain Negative: Arthralgia, Myalgia Skin: Negative Neurological: Negative All Other Systems Reviewed And Are Negative: Yes Physical Exam Triage Information Reviewed: Yes Vital Signs On Initial Exam: Initial Vitals Temp Pulse Resp BP Pulse Ox 97.0 F 88 18 149/113 97 04/07/19 05:36 04/07/19 05:36 04/07/19 05:36 04/07/19 05:36 04/07/19 05:36 Vital Signs Reviewed: Yes Appearance: Positive: Well-Appearing, Well-Nourished Skin: Positive: Warm, Other - diffuse psoriasis Head/Face: Positive: Normal Head/Face Inspection Eyes: Positive: EOMI, KOFFI, Conjunctiva Clear Neck: Positive: Supple, No Lymphadenopathy Respiratory/Lung Sounds: Positive: Clear to Auscultation, Breath Sounds Present Cardiovascular: Positive: RRR, Pulses are Symmetrical in both Upper and Lower Extremities Musculoskeletal: Positive: Strength/ROM Intact Neurological: Positive: Speech Normal Psychiatric: Positive: Affect/Mood Appropriate Procedures - Sedation Patient Received Moderate/Deep Sedation with Procedure: No Diagnostics - Vital Signs Vital Signs Temp Pulse Resp BP Pulse Ox 04/07/19 09:56 98.6 F 70 16 103/58 97 04/07/19 08:18 96/77 04/07/19 08:02 16 04/07/19 07:18 71 117/71 97 04/07/19 07:00 70 96 04/07/19 06:48 80 130/57 96 04/07/19 06:47 80 97 04/07/19 06:44 18 04/07/19 05:36 97.0 F 88 18 149/113 97 - Laboratory Lab Results: Lab Results 04/07/19 04/07/19 04/07/19 Range/Units 06:35 06:35 06:35 WBC 6.0 (3.5-10.8) 10^3/uL RBC 5.03 H (3.70-4.87) 10^6 /uL Hgb 14.7 (12.0-16.0) g/dL Hct 44 (35-47) % MCV 87 (80-97) fL MCH 29 (27-31) pg MCHC 34 (31-36) g/dL RDW 13 (10-15) % Plt Count 179 (150-450) 10^3/uL MPV 8.4 (7.4-10.4) fL Neut % (Auto) 62.5 % Lymph % (Auto) 26.2 % Lincoln % (Auto) 5.5 % Eos % (Auto) 4.6 % Baso % (Auto) 1.2 % Absolute Neuts (auto) 3.7 (1.5-7.7) 10^3/ul Absolute Lymphs (auto) 1.6 (1.0-4.8) 10^3/ul Absolute Monos (auto) 0.3 (0-0.8) 10^3/ul Absolute Eos (auto) 0.3 (0-0.6) 10^3/ul Absolute Basos (auto) 0.1 (0-0.2) 10^3/ul Absolute Nucleated RBC 0.0 10^3/ul Nucleated RBC % 0.1 Sodium 138 (135-145) mmol/L Potassium 4.1 (3.5-5.0) mmol/L Chloride 106 (101-111) mmol/L Carbon Dioxide 27 (22-32) mmol/L Anion Gap 5 (2-11) mmol/L BUN 14 (6-24) mg/dL Creatinine 0.79 (0.51-0.95) mg/dL Est GFR ( Amer) 97.0 (>60) Est GFR (Non-Af Amer) 80.2 (>60) BUN/Creatinine Ratio 17.7 (8-20) Glucose 172 H (70-100) mg/dL Lactic Acid 1.7 (0.5-2.0) mmol/L Calcium 8.9 (8.6-10.3) mg/dL Magnesium 1.7 L (1.9-2.7) mg/dL Total Bilirubin 0.50 (0.2-1.0) mg/dL AST 31 (13-39) U/L ALT 47 (7-52) U/L Alkaline Phosphatase 80 (34-104) U/L C-Reactive Protein 1.95 (<8.01) mg/L Total Protein 6.6 (6.4-8.9) g/dL Albumin 3.8 (3.2-5.2) g/dL Globulin 2.8 (2-4) g/dL Albumin/Globulin Ratio 1.4 (1-3) Lipase 19 (11.0-82.0) U/L Beta HCG, Quant < 0.60 mIU/mL Urine Color Urine Appearance Urine pH (5-9) Ur Specific Paterson (1.010-1.030) Urine Protein (Negative) Urine Ketones (Negative) Urine Blood (Negative) Urine Nitrate (Negative) Urine Bilirubin (Negative) Urine Urobilinogen (Negative) Ur Leukocyte Esterase (Negative) Urine Glucose (Negative) 04/07/19 04/07/19 Range/Units 08:29 08:47 WBC (3.5-10.8) 10^3/uL RBC (3.70-4.87) 10^6 /uL Hgb (12.0-16.0) g/dL Hct (35-47) % MCV (80-97) fL MCH (27-31) pg MCHC (31-36) g/dL RDW (10-15) % Plt Count (150-450) 10^3/uL MPV (7.4-10.4) fL Neut % (Auto) % Lymph % (Auto) % Lincoln % (Auto) % Eos % (Auto) % Baso % (Auto) % Absolute Neuts (auto) (1.5-7.7) 10^3/ul Absolute Lymphs (auto) (1.0-4.8) 10^3/ul Absolute Monos (auto) (0-0.8) 10^3/ul Absolute Eos (auto) (0-0.6) 10^3/ul Absolute Basos (auto) (0-0.2) 10^3/ul Absolute Nucleated RBC 10^3/ul Nucleated RBC % Sodium (135-145) mmol/L Potassium (3.5-5.0) mmol/L Chloride (101-111) mmol/L Carbon Dioxide (22-32) mmol/L Anion Gap (2-11) mmol/L BUN (6-24) mg/dL Creatinine (0.51-0.95) mg/dL Est GFR ( Amer) (>60) Est GFR (Non-Af Amer) (>60) BUN/Creatinine Ratio (8-20) Glucose (70-100) mg/dL Lactic Acid 1.3 (0.5-2.0) mmol/L Calcium (8.6-10.3) mg/dL Magnesium (1.9-2.7) mg/dL Total Bilirubin (0.2-1.0) mg/dL AST (13-39) U/L ALT (7-52) U/L Alkaline Phosphatase (34-104) U/L C-Reactive Protein (<8.01) mg/L Total Protein (6.4-8.9) g/dL Albumin (3.2-5.2) g/dL Globulin (2-4) g/dL Albumin/Globulin Ratio (1-3) Lipase (11.0-82.0) U/L Beta HCG, Quant mIU/mL Urine Color Yellow Urine Appearance Cloudy Urine pH 5.0 (5-9) Ur Specific Paterson 1.023 (1.010-1.030) Urine Protein Negative (Negative) Urine Ketones Negative (Negative) Urine Blood Negative (Negative) Urine Nitrate Negative (Negative) Urine Bilirubin Negative (Negative) Urine Urobilinogen Negative (Negative) Ur Leukocyte Esterase Negative (Negative) Urine Glucose Negative (Negative) Result Diagrams: 04/07/19 06:35 04/07/19 06:35 Lab Statement: Any lab studies that have been ordered have been reviewed, and results considered in the medical decision making process. Abdominal Pain Fem Course/Dx - Course Course Of Treatment: Patient is a 43-year-old morbidly obese female presenting to the ED with left-sided flank pain radiating around into the LLQ. She is also endorsing a lump to her abdomen. Denies any history of hernias. Symptoms began 2 days ago, have been consistent. No current modifying factors. No fevers, sweats, chills. Last bowel movement yesterday and was normal in appearance. Denies any melena. Denies any gross hematuria. Denies any obstructive symptoms or UTI symptoms. CT abd/pelvis: IMPRESSION: 1. LIMITED STUDY. 2. NO EVIDENCE FOR ACUTE FINDING. 3. SMALL NONOBSTRUCTING RIGHT RENAL CALCULUS. 4. MILD HEPATOMEGALY, UNCHANGED. 5. STATUS POST CHOLECYSTECTOMY. Pt given morphine without relief and subsequently given fentanyl. She is requesting dilaudid. On physical examination, pt has a 2cm nonfluctuant area left-sided abdomen which does not appear to be a hernia and appears to be a lipoma versus sebaceous cyst. Labs obtained and are normal. UA obtained which shows no acute findings. Discussed findings with the patient and she will follow-up with surgery regarding the small mass to her abdomen. - Diagnoses Differential Diagnosis: Positive: Urinary Tract Infection - lipoma, cyst Provider Diagnoses: Mass of skin of abdomen Discharge ED - Sign-Out/Discharge Documenting (check all that apply): Patient Departure - Discharge Plan Condition: Stable Disposition: HOME Referrals: Jesse Sanchez MD [Medical Doctor] - Urban Gleason MD [Primary Care Provider] - Additional Instructions: If this continues to worsen, please follow up with general surgery No evidence of UTI No obstructing renal calculi on todays visit I have given you a referral - please call today to make a follow up appt - Billing Disposition and Condition Condition: STABLE Disposition: Home
== END 2019-04-07 09:55 | disposition home or self-care (01) ==
LOC: ED 05:34
DX: R19.04 Left lower quadrant abdominal swelling, mass and lump (principal); K21.9 Gastro-esophageal reflux disease without esophagitis; N20.0 Calculus of kidney; Z90.49 Acquired absence of other specified parts of digestive tract; Z87.891 Personal history of nicotine dependence; Z88.1 Allergy status to other antibiotic agents; Z88.5 Allergy status to narcotic agent; Z88.0 Allergy status to penicillin; Z88.2 Allergy status to sulfonamides
CPT/HCPCS: 36415; 74176; 80053; 81003; 83605; 83690; 83735; 84702; 85025; 86140; 96374; 96375; 99283; J2270; J2405; J3010

== ENCOUNTER 2019-07-25 13:06 | Emergency (ER) | payer OTHER ==
--- OUTSIDE RECORDS SUMMARY | 2019-07-25 14:15 | XMS REPORT | Summary of Care ---
:1975 Author Organization [facility] Address [address] [place] [address] Care Team Providers Name Role Phone Urban Gleason Primary Care Provider Reason for Visit Reason Comments Knee Pain R knee, swollen and black/blue, went to [facility] 06/11 Encounter Details Date Type Department Care Team Description 06/14/2019 Office Visit [place] [facility] Harish Proctor, Acute pain of right Medicine [place] knee (Primary Dx) [address] [place] [address] [place] [address] [phone] Allergies Active Allergy Reactions Severity Noted Date Comments Amoxicillin-K Rash 10/17/[address] Turpin Clavulanate-Saccharin 11/2008 Ciprofloxacin Swelling 08/16/2008 Hydrocodone Respiratory Reaction 08/16/2008 Penicillins Unknown Reaction 12/19/2008 Sulfa Antibiotics Swelling 08/16/2008 Ketorolac Tromethamine Dermatologic Reaction 12/28/2013 documented as of this encounter (statuses as of 06/14/2019) Medications Medication Sig Dispensed Refills Start Date End Date Status esomeprazole Take 40 mg 30 Cap 11 11/04/2017 Active magnesium (NEXIUM) by mouth 40 MG Oral CAPSULE DAILY. DELAYED RELEASE triamcinolone Apply twice 90 g 5 03/09/2019 Active (KENALOG) 0.1 % daily Apply externally Ointment Ibuprofen 200 MG Take 200 mg 0 Active Oral by mouth. CapIndications: 5 Indications: tabs every 6 hours 5 tabs every 6 hours tramadol (ULTRAM) Take 1 Tab 30 Tab 0 06/14/2019 Active 50 MG Oral by mouth TabIndications: EVERY EIGHT Acute pain of right HOURS knee NEEDED (For knee pain). Max Daily Amount: 150 mg. meloxicam (MOBIC) Take 1 Tab 14 Tab 0 05/18/2019 Discontinued 7.5 MG Oral by mouth 9 (Other) TabIndications: DAILY. Right leg pain documented as of this encounter (statuses as of 06/14/2019) Active Problems Problem Noted Date Pain in joint, lower leg 06/11/2019 Morbid obesity with BMI of 60.0-69.9, adult 05/18/2019 History of nephrolithiasis 05/18/2019 BISI (obstructive sleep apnea) 11/25/2012 Overview: [facility] [place] CPAP 6 cm with heated humidificaiton Pulmonary nodule, left 09/30/2012 Overview: 2 mm stable left lower lung [facility] ct scan 09/2012 S/P cholecystectomy 09/24/2012 PID (acute pelvic inflammatory disease) 09/24/2012 Overview: Based on ct scan and pelvic exam [facility] 09/2012 im ceftriaxone and zithromax Tobacco use [...] 08/22. Psoriasis Overview: Extensive-arms/legs/face/chest-light treatment Dr Gera Arguelles [place] documented as of this encounter (statuses as of 06/14/2019) Resolved Problems Problem Noted Date Resolved Date Cholelithiasis 10/10/2008 09/24/2012 Overview: S/p lap choly 2001. documented as of this encounter (statuses as of 06/14/2019) Immunizations Name Administration Dates Next Due Influenza (IM) Preservative Free 05/18/2019 documented as of this encounter Social History Tobacco Use Types Packs/Day Years Used Date Former Smoker Cigarettes 0.5 16 Quit: 01/2019 Smokeless Tobacco: Never Used Alcohol Use Drinks/Week oz/Week Comments Yes occasionally Sex Assigned at Date Recorded Not on file Job Start Date Occupation Industry Not on file Not on file Not on file Travel History Travel Start Travel End No recent travel history available. documented as of this encounter Last Filed Vital Signs Vital Sign Reading Time Taken Comments Blood Pressure 126/76 06/14/2019 11:09 AM EST Pulse 65 06/14/2019 11:09 AM EST Temperature - - Respiratory Rate - - Oxygen Saturation - - Inhaled Oxygen Concentration - - Weight 194.1 kg (428 lb) 06/14/2019 11:09 AM EST Height 170.2 cm (5' 7") 06/14/2019 11:09 AM EST Body Mass Index 67.03 06/14/2019 11:09 AM EST documented in this encounter Progress Notes Harish Proctor PA - 06/14/2019 11:00 AM EST PATIENT: Michelle Rutherford : 1975 DATE OF SERVICE: 06/14/2019 CHIEF COMPLAINT: Chief Complaint Patient presents with Knee Pain R knee, swollen and black/blue, went to [facility] 06/11 Subjective HISTORY OF PRESENT ILLNESS: Michelle Rutherford is a 44-y.o. female. Michelle presents to the office for a follow up from the emergency room on after I called her about an abnormal finding on the MRI of her left knee that may have been an aneurysm. I could not reach the patient on June 07, but when I contacted her on 06/10 she states that she had significant bruising behind the knee, in which I ordered that she seek immediate medical care at the emergency room. They performed a vascular MRI which did not find any vascular abnormalities, but was limited due to body habitus according to report. MRI Results are as quoted: "1. Complex degenerative changes and nondisplaced tears in the medial meniscus 2. Moderate chondromalacia in patellofemoral joint 3. Lesion in the posterior knee concerning for vascular etiology either aneurysm of popliteal artery or large varix of the popliteal vein, vascular ultrasound of this area is recommended" Today she states her pain has been worsening since I last saw her. 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 She currently denies coldness or paresthesias of the feet, chest pain, dyspnea, nausea, vomiting, and diarrhea or fever. Past Medical History: Diagnosis Date Arthritis Nguyen's cyst of knee, right 2018 GERD (gastroesophageal reflux disease) Kidney stone Psoriasis Skin abnormalities Family History Problem Relation Age of Onset Psoriasis Brother Psoriasis Brother Diabetes Father Hay Fever Father Lupus Mother Psoriasis Mother Arthritis Mother Diabetes Brother Psoriasis Sister Anesth Problems No family history Cancer No family history Clotting Disorder No family history Heart Disease No family history Hypertension No family history Kidney Disease No family history Thyroid Disease No family history Current Outpatient Medications Medication Sig esomeprazole magnesium (NEXIUM) 40 MG Oral CAPSULE DELAYED RELEASE Take 40 mg by mouth DAILY. Ibuprofen 200 MG Oral Cap Take 200 mg by mouth. Indications: 5 tabs every 6 hours tramadol (ULTRAM) 50 MG Oral Tab Take 1 Tab by mouth EVERY EIGHT HOURS NEEDED (For knee pain). Max Daily Amount: 150 mg. triamcinolone (KENALOG) 0.1 % Apply externally Ointment Apply twice daily No current facility-administered medications for this visit. Allergies Allergen Reactions Amoxicillin-K Clavulanate-Saccharin Rash From Dr Turpin 11/2008 Ciprofloxacin Swelling Hydrocodone Respiratory Reaction Penicillins Unknown Reaction Sulfa Antibiotics Swelling Toradol [Ketorolac Tromethamine] Dermatologic Reaction Social History Socioeconomic History Marital status: Spouse name: Not on file Number of children: Not on file Years of education: Not on file Highest education level: Not on file Occupational History Not on file Social Needs Financial resource strain: Not on file Food insecurity Worry: Not on file Inability: Not on file Transportation needs Medical: Not on file Non-medical: Not on file Tobacco Use Smoking status: Former Smoker Packs/day: 0.50 Years: 16.00 Pack years: 8.00 Types: Cigarettes Last attempt to quit: 01/2019 Years since quittin.4 Smokeless tobacco: Never Used Substance and Sexual Activity Alcohol use: Yes Comment: occasionally Drug use: No Sexual activity: Yes Partners: Male Lifestyle Physical activity Days per week: Not on file Minutes per session: Not on file Stress: Not on file Relationships Social connections Talks on phone: Not on file Gets together: Not on file Attends anglican service: Not on file Active member of club or organization: Not on file Attends meetings of clubs or organizations: Not on file Relationship status: Not on file Intimate partner violence Fear of current or ex partner: Not [...] 300 lbs Social History Narrative Lives in [place] 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 11/21/14 Lives with parents works at [employer] in [place]. REVIEW OF SYSTEMS: Review of Systems Constitutional: Negative for chills, fever and weight loss. Eyes: Negative for blurred vision and double vision. Respiratory: Negative for cough, shortness of breath and wheezing. Cardiovascular: Negative for chest pain, palpitations, orthopnea and leg swelling. Gastrointestinal: Negative for diarrhea, heartburn, nausea and vomiting. Genitourinary: Negative for flank pain and hematuria. Musculoskeletal: Negative for myalgias. Neurological: Negative for dizziness, speech change, seizures, loss of consciousness and headaches. Objective PHYSICAL EXAM: VITALS: BP 126/76 (BP Location: Left arm, Patient Position: Sitting) | Pulse 65 | Ht 5' 7" (1.702m) | Wt (!) 428 lb (194.1 kg) | BMI 67.03 kg/m Body mass index is 67.03 kg/m. Physical Exam Constitutional: General: She is in acute distress. Appearance: She is not diaphoretic. HENT: Head: Normocephalic and atraumatic. Musculoskeletal: Comments: Ecchymosis noted on the lateral side of the knee. Skin: General: Skin is warm and dry. Neurological: General: No focal deficit present. Mental Status: She is alert. Sensory: No sensory deficit. Motor: No weakness. Coordination: Coordination normal. Deep Tendon Reflexes: Reflexes normal. Psychiatric: Mood and Affect: Mood normal. Thought Content: Thought content normal. ASSESSMENT / IMPRESSION: ICD-9-CM ICD-10-CM 1. Acute pain of right knee 719.46 M25.561 tramadol (ULTRAM) 50 MG Oral Tab She has an appointment with orthopedics today. I have sent her a copy of her MRI with results attached for the orthopedist to evaluate. I look forward to seeing what her orthopedist has planned for her knee. Until then, I have prescribed the patient tramadol based on the lack of treatment efficacy of the Mobic. I will be following up on her to manage the tramadol and keep in touch on the treatment plan for the knee pain. The [facility] I-STOP website/database was accessed and there are no apparent issues with abuse ordiversion. Reference #: [id number] Author: ALEX[place] Gómez 06/14/2019 15:15 documented in this encounter Plan of Treatment Date Type Specialty Care Team Description 12/22/2019 Office Visit Dermatology Deisy Buckner MD [address] [place] [address] Health Maintenance Due Date Last Done Comments DTaP/Tdap/Td Vaccines (1 - 1988 Tdap) LIPID DISORDER SCREENING 1995 PAP SMEAR 10/31/2015 10/30/2012, 06/05/2012 (Previously completed) MAMMOGRAM (SCREENING) 2017 DIABETES SCREENING 08/18/2019 08/17/2018, 10/03/2015, 07/06/2014, Additional history exists DEPRESSION SCREENING 04/09/2020 04/09/2019 INFLUENZA VACCINE Completed 05/18/2019 HEPATITIS A IMMUNIZATION Aged Out No longer eligible SERIES based on patient's age to complete this topic HPV IMMUNIZATION SERIES Aged Out No longer eligible based on patient's age to complete this topic MENINGOCOCCAL VACCINE IMM Aged Out No longer eligible based on patient's age to complete this topic PNEUMOCOCCAL 0-64 YRS Aged Out No longer eligible based on patient's age to complete this topic documented as of this encounter Results Not on filedocumented in this encounter Visit Diagnoses Diagnosis Acute pain of right knee documented in this encounter Guarantor Name Account Type Relation to Date of Phone Billing Patient Address Michelle Rutherford Harshad Personal/Family [phone] [phone] [place], [place] ([place]) [id number] documented as of this encounter
--- OUTSIDE RECORDS SUMMARY | 2019-07-25 14:15 | XMS REPORT | Summary of Care ---
:1975 Author Organization [facility] Address [address] [address] Care Team Providers Name Role Phone Urban Gleason Primary Care Provider Reason for Referral Refer to Department Only (Routine) Status Reason Specialty Diagnoses / Referred By Referred To Procedures Contact Contact Pending Review Diagnoses Numbness and tingling of right leg Renae Nunn RPA-C [address] [place] [address] Refer to Department Only (Routine) Status Reason Specialty Diagnoses / Referred By Referred To Procedures Contact Contact Pending Review Physical Therapy Diagnoses Chronic pain of right knee Renae Nunn RPA-C [address] [place] [address] Reason for Visit Reason Comments Follow Up right knee Encounter Details Date Type Department Care Team Description 06/21/2019 Office Visit [facility] - Renae Nunn, Chronic pain of right knee (Primary Dx); [place] RPA-C Numbness and tingling of right leg [facility] [address] [facility] [place] [address] [place] [address] [phone] Allergies Active Allergy Reactions Severity Noted Date Comments Amoxicillin-K Rash 10/17/[address] Turpin Clavulanate-Saccharin 11/2008 Ciprofloxacin Swelling 08/16/2008 Hydrocodone Respiratory Reaction 08/16/2008 Penicillins Unknown Reaction 12/19/2008 Sulfa Antibiotics Swelling 08/16/2008 Ketorolac Tromethamine Dermatologic Reaction 12/28/2013 documented as of this encounter (statuses as of 06/21/2019) Medications Medication Sig Dispensed Refills Start Date End Date Status esomeprazole magnesium Take 40 mg by 30 Cap 11 11/04/2017 Active (NEXIUM) 40 MG Oral mouth DAILY. CAPSULE DELAYED RELEASE triamcinolone (KENALOG) Apply twice 90 g 5 03/09/2019 Active 0.1 % Apply externally daily Ointment Ibuprofen 200 MG Oral Take 200 mg by 0 Active CapIndications: 5 tabs mouth. every 6 hours Indications: 5 tabs every 6 hours tramadol (ULTRAM) 50 MG Take 1 Tab by 30 Tab 0 06/14/2019 Active Oral TabIndications: mouth EVERY Acute pain of right knee EIGHT HOURS NEEDED (For knee pain). Max Daily Amount: 150 mg. documented as of this encounter (statuses as of 06/21/2019) Active Problems Problem Noted Date Pain in joint, lower leg 06/11/2019 Morbid obesity with BMI of 60.0-69.9, adult 05/18/2019 History of nephrolithiasis 05/18/2019 BISI (obstructive sleep apnea) 11/25/2012 Overview: [facility] [place] CPAP 6 cm with heated humidificaiton Pulmonary nodule, left 09/30/2012 Overview: 2 mm stable left lower lung [facility] ct scan 09/2012 S/P cholecystectomy 09/24/2012 PID (acute pelvic inflammatory disease) 09/24/2012 Overview: Based on ct scan and pelvic exam [facility] 09/2012 im ceftriaxone and zithromax Tobacco [...] negative 08/22. Psoriasis Overview: Extensive-arms/legs/face/chest-light treatment Dr Boss [facility] documented as of this encounter (statuses as of 06/21/2019) Resolved Problems Problem Noted Date Resolved Date Cholelithiasis 10/10/2008 09/24/2012 Overview: S/p lap choly 2001. documented as of this encounter (statuses as of 06/21/2019) Immunizations Name Administration Dates Next Due Influenza [...] Sign Reading Time Taken Comments Blood Pressure 140/97 06/21/2019 9:20 AM EST Pulse 90 06/21/2019 9:20 AM EST Temperature - - Respiratory Rate - - Oxygen Saturation - - Inhaled Oxygen Concentration - - Weight 185.1 kg (408 lb) 06/21/2019 9:20 AM EST Height 170.2 cm (5' 7") 06/21/2019 9:20 AM EST Body Mass Index 63.9 06/21/2019 9:20 AM EST documented in this encounter Progress Notes Renae Nunn, TALISHA-C - 06/21/2019 9:30 AM EST Name: Michelle Rutherford : 1975 Date of Service: 06/21/2019 Referring Provider: Self-Referred Primary Care Provider: Urabn Gleason Chief Complaint Patient presents with Follow Up right knee History of Present Illness: Michelle Rutherford is a 44-y.o. female who presents for a new visit. The patient presents with right knee, right lower leg pain. Current symptoms include: pain: intensity 8/10, swelling: intensity 4/10 and numbness: intensity 5/10. Onset of the symptoms was about 1 year ago. Inciting event: no known event. Aggravating symptoms:going up and down stairs, walking, pivoting, rising after sitting, any weight bearing, driving a car. Patient's overall course: gradually worsening. Patient has had no prior lower extremity problems. Previous visits for this problem: yes, last by the patient's primary care provider and sports medicine at [facility]. Evaluation to date: plain x-rays : abnormal MRI: abnormal. Treatment to date: rest, ice: ineffective, [id number] analgesics: Ineffective. Also just had a cortisone injection in the right knee on 06/18/18 by [facility] sports medicine. Past Medical History: Diagnosis Date Arthritis Nguyen's cyst of knee, right 2018 GERD (gastroesophageal reflux disease) Kidney stone Psoriasis Skin abnormalities Past Surgical History: Procedure Laterality Date CHOLECYSTECTOMY TONSILLECTOMY Current Outpatient Medications Medication Sig esomeprazole magnesium [...] No current facility-administered medications for this visit. . 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 Family History Problem Relation Age of Onset Psoriasis Brother Psoriasis Brother Diabetes Father Hay Fever Father Lupus Mother Psoriasis Mother Arthritis Mother Diabetes Brother Psoriasis Sister Anesth Problems No family history Cancer No family history Clotting Disorder No family history Heart Disease No family history Hypertension No family history Kidney Disease No family history Thyroid Disease No family history ROS: Review of systems intake completed by clinical staff. I have reviewed and agree with their documentation. Physical Examination: BP (!) 140/97 | Pulse 90 | Ht 5' 7" (1.702 m) | Wt (!) 408 lb (185.1 kg) | BMI 63.90 kg/m Patient was examined in the supine position. She has a Negative effusion. Patient has extension 0, flexion 90. Patient has tenderness on palpation of the medial joint line. Patient has tenderness on palpation of the lateral joint line. Patient has Positive Delilah's test with respect to the medial and lateral joint line. Patient has Negative Kedar's test at 25 - 30 degrees flexion. Patient has Negative Zamarripa's test. Patient has no increased external rotation at 90 degrees flexion. Patient hasno increased external rotation at 0 degrees extension. negative varus stress test. negative valgus stress test. Nv intact to the Right lower extremity. Patient walks with an antalgic gait with respect to the right extremity. Right ankle and hip range of motion are full and pain free. The left knee exam is normal. X-Ray: X-rays of right knee, Ap, lateral skyline and notch views were obtained. minimal changes are noted in the medial compartment;minimal changes are noted in the lateral compartment;minimal are noted in the patella-femoral compartment. Impression: 1. Chronic pain of right knee 2. Numbness and tingling of right leg Plan: The risks and benefits of my recommendations, as well as other treatment options along with their benefits, risks, and failure rates were discussed with the patient today. Emg/ncs right lower extremity. Physical therapy to start. Out of work 1 week. All questions were answered. Follow up: Schedule follow-up here in 8 week(s). Author: DAVE Nguyen 06/21/2019 10:21 documented in this encounter Plan of Treatment Date Type Specialty Care Team Description 07/27/2019 Office Visit Orthopedics Zenon Ram MD [address] [place] [address] [phone] 12/22/2019 Office Visit Dermatology Deisy Buckner MD [address] [place] [id number] Name Type Priority Associated Diagnoses Order Schedule REFER TO PHYSICAL Referral Routine Chronic pain of right 99 Occurrences starting THERAPY / REHAB knee 06/21/2019 until 06/21/2020 REFER TO EMG Referral Routine Numbness and tingling Expected: 06/21/2019, of right leg Expires: 06/21/2020 Health Maintenance Due Date Last Done Comments [...] filedocumented in this encounter Visit Diagnoses Diagnosis Chronic pain of right knee Numbness and tingling of right leg Disturbance of skin sensation documented in this encounter Guarantor Name Account Type Relation to Date of Phone Billing Patient Address Michelle Rutherford Personal/Family [phone] [phone] [place], [place] (Work) [address] documented as of this encounter
--- OUTSIDE RECORDS SUMMARY | 2019-07-25 14:15 | XMS REPORT | Summary of Care ---
:1975 Author Organization [facility] Address [address] [address] Care Team Providers Name Role Phone Urban Gleason Chaitanya Primary Care Provider Reason for Referral (Emergency) Status Reason Specialty Diagnoses / Procedures Referred By Contact Referred To Contact Debbie Blood PA [address] [id number] Scheduling Instructions Reason for Consult: Abnormal MRI findings of right knee Patient Background: Michelle Rutherford is a 44-y.o. female with abnormal MRI findings of right knee; f/u doppler US to r/o popliteal artery aneurysm Vs DVT vs varicosity normal. Reason for Visit Reason Comments Leg Pain Encounter Details Date Type Department Care Team Description 06/11/2019 Emergency [facility] Emergency Department Emergency [address] [id number] Allergies Active Allergy Reactions Severity Noted Date Comments Amoxicillin-K Rash 10/17/[address] Turpin Clavulanate-Saccharin 11/2008 Ciprofloxacin Swelling 08/16/2008 Hydrocodone Respiratory Reaction 08/16/2008 Morphine Other 12/28/2013 Headache Penicillins Unknown Reaction 12/19/2008 Sulfa Antibiotics Swelling 08/16/2008 Ketorolac Tromethamine Dermatologic Reaction 12/28/2013 documented as of this encounter (statuses as of 06/12/2019) Medications Medication Sig Dispensed Refills Start Date [...] hours Indications: 5 tabs every 6 hours meloxicam (MOBIC) 7.5 MG Take 1 Tab by 14 Tab 0 05/18/2019 Active Oral TabIndications: mouth DAILY. Right leg pain documented as of this encounter (statuses as of 06/12/2019) Active Problems Problem Noted Date Pain in joint, lower leg 06/11/2019 Morbid obesity with BMI of 60.0-69.9, adult 05/18/2019 History of nephrolithiasis 05/18/2019 BISI (obstructive sleep apnea) 11/25/2012 Overview: [facility] [place] CPAP 6 cm with heated humidificaiton Pulmonary nodule, left 09/30/2012 Overview: 2 mm stable left lower lung [facility] ct scan 09/2012 S/P cholecystectomy 09/24/2012 PID (acute pelvic inflammatory disease) 09/24/2012 Overview: Based on ct scan and pelvic exam [facility] 09/2012 im ceftriaxone and zithromax Tobacco [...] Psoriasis Overview: Extensive-arms/legs/face/chest-light treatment Dr Gera Arguelles [place] documented as of this encounter (statuses as of 06/12/2019) Resolved Problems Problem Noted Date Resolved Date Cholelithiasis 10/10/2008 09/24/2012 Overview: S/p lap choly 2001. documented as of this encounter (statuses as of 06/12/2019) Immunizations Name Administration Dates Next Due Influenza [...] Sign Reading Time Taken Comments Blood Pressure 132/75 06/11/2019 7:30 PM EST Pulse 68 06/11/2019 7:30 PM EST Temperature 37.1 06/11/2019 3:45 PM EST C (98.7 F) Respiratory Rate 18 06/11/2019 7:30 PM EST Oxygen Saturation 100% 06/11/2019 7:30 PM EST Inhaled Oxygen Concentration - - Weight - - Height - - Body Mass Index - - documented in this encounter Discharge Instructions InstructionsDebbie Blood PA - 06/11/2019Continue Meloxicam as prescribed for pain control May use ice or heat to the area to help with pain and swelling in 20 minute increments. Ambulate as tolerated. Follow up with PCP Return to ED if symptoms worsen/ change. AttachmentsThe following attachments cannot be sent through Care Everywhere.Knee Pain Discharge Instructions (Kyrgyz)documented in this encounter Plan of Treatment Date Type Specialty Care Team Description 07/05/2019 Office Visit Internal Medicine Urban Gleason MD [address] [place] [address] [phone] 12/22/2019 Office Visit Dermatology Deisy Buckner MD [address] [place] [address] Name Type Priority Associated Diagnoses Date/Time VL LOWER EXTREMITY Imaging STAT 06/11/2019 5:06 PM EST DUPLEX VEINS RIGHT Health Maintenance Due Date Last Done Comments [...] this topic documented as of this encounter Procedures Procedure Name Priority Date/Time Associated Comments Diagnosis URINE MICROSCOPIC STAT 06/11/2019 5:49 Results for this WITH REFLEX CULTURE PM EST procedure are in the results section. URINALYSIS (LAB) WITH STAT 06/11/2019 5:49 Results for this REFLEX CULTURE PM EST procedure are in the results section. VL LOWER EXTREMITY STAT 06/11/2019 5:06 DUPLEX VEINS RIGHT PM EST Procedure Note - Interface, Rad Results - 06/11/2019 5:10 PM EST NAME: Sangeeta PatriciaMaria D BN: [id number] VASCULAR LAB [facility] STUDY DATE: 06/11/19 1 [facility] [place] [place] [id number] : 79 AP: Dr Raul Caldwell MD REFERRING PROVIDER: Jeremi Lewis EXAMINATION: Venous - Lower INDICATION: Pain in right leg -M79.66 TECHNOLOGIST: Wm Mccartney IMPRESSION IMPRESSIONS: Indication: Right knee fluid collection visualized on MRI. Rule out popliteal artery aneurysm vs varicosity. Right leg pain. A limited sonogram of the right lower extremity deep and superficial venous system was performed assessing grayscale appearance, color doppler flow, pulsed doppler waveforms and compressibility. Venous duplex and compressions of the right lower extremity shows no evidence for deep or superficial venous thrombosis. Today's exam was technically limited due to patient body habitus and poor pain tolerance. There is no obvious evidence for a popliteal artery aneurysm or notable varicosity in the right posterior knee/popliteal fossa. There is no previous exam available for comparison. documented in this encounter Results URINE MICROSCOPIC WITH REFLEX CULTURE (06/11/2019 5:49 PM EST) Urine Wbc 2-5 0 - 5 /HPF [facility] Urine Rbc 0-2 0 - 2 /HPF [facility] Urine Epithelial 3+ None Seen /HPF [facility] Urine Bacteria 1+ None Seen /HPF [facility] Specimen Urine - Urine specimen obtained by clean catch procedure (specimen) Performing Organization Address [facility] Phone Number [facility] [address] [place] [address] URINALYSIS (LAB) WITH REFLEX CULTURE (06/11/2019 5:49 PM EST) Urine Color Yellow Yellow [facility] Urine Appearance Cloudy (A) Clear [facility] Urine Glucose Negative Negative mg/dl [facility] Urine Bilirubin Negative Negative [facility] Urine Ketones Negative Negative [facility] Urine Specific 1.021 1.005 - 1.030 [facility] Urine Blood Negative Negative [facility] Urine Ph 6.5 5.0 - 8.0 [facility] Urine Protein Negative Negative mg/dl [facility] Urine Urobilinogen 0.2 0.2 - 1.0 [facility] Urine Nitrite Negative Negative [facility] Urine Leukocytes Small (A) Negative [facility] Specimen Urine - Urine specimen obtained by clean catch procedure (specimen) Performing Organization Address [facility] Phone Number [facility] [address] [place] [address] [phone] documented in this encounter Visit Diagnoses Diagnosis Chronic pain of right knee Morbid obesity (HCC) Morbid obesity Psoriasis Other psoriasis GERD (gastroesophageal reflux disease) Esophageal reflux Pain in joint, lower leg documented in this encounter Administered Medications Medication Order MAR Action Action Date Dose Rate Site morphine (ORAmorph SR, MS CONTIN) Given 06/11/2019 7:28 PM EST 15 mg controlled release tablet 15 mg 15 mg, Oral, NOW, 1 dose, Fri06/11/19 at 1850, This medication dosage form should NOT be crushed. Please call the inpatient Pharmacy for more information. [facility] ext. [phone] [place] ext. [phone] [facility] ext. [phone] , documented in this encounter Guarantor Name Account Type Relation to Date of Phone Billing Patient Address SangeetaMichelle Harshad Personal/Family 1975 [address] [phone] [place], [place] (Work) [address] documented as of this encounter
--- NOTE | 2019-07-25 15:03 | ED ---
Lower Extremity - HPI Summary HPI Summary: The patient is a 44-year-old female presenting to [facility] [place] emergency department with a chief complaint of pain in the right lower extremity since 07/23/2019. She reports that she fell going down the stairs two days ago, and she is now experiencing pain throughout the right leg in the femur to the knee, but not in the hip or ankle. She denies any numbness or tingling, weakness, or bruising. She is able to apply pressure and ambulate on the leg, but pain is present with these actions. Symptoms currently rated 10/10 in severity. She has taken Tylenol last night without much relief of the pain. Past medical history significant for psoriasis, GERD, kidney stones, cholecystectomy, tonsillectomy and appendectomy. Former smoker, occasional alcohol use, no substance use. Medications reviewed. Allergies noted. - History of Current Complaint Chief Complaint: EDHipPelvisInjury Stated Complaint: FALL ON FRI RIGHT LEG INJURY Time Seen by Provider: 07/25/19 14:51 Hx Obtained From: Patient Hx Last Menstrual Period: 12/28/18 Mechanism Of Injury: Fall From A Standing Position - down stairs Onset of Pain: Immediate Onset/Duration: Still Present Severity Initially: Moderate Severity Currently: Severe Pain Intensity: 10 Pain Scale Used: 0-10 Numeric Timing: Constant Location: Other - right thigh to knee not including hip or ankle Character Of Pain: Aching Associated Signs And Symptoms: Negative: Bruising, Weakness, Other - numbness, tingling Aggravating Factor(s): Ambulation Alleviating Factor(s): Rest Able to Bear Weight: Yes - Allergies/Home Medications Allergies/Adverse Reactions: Allergies Allergy/AdvReac Type Severity Reaction Status Date / Time amoxicillin Allergy Rash Verified 07/25/19 13:14 ceftriaxone Allergy Rash And Verified 07/25/19 13:14 Itching ciprofloxacin Allergy Difficulty Verified 07/25/19 13:14 Breathing hydrocodone Allergy Difficulty Verified 07/25/19 13:14 Breathing ketorolac [From Toradol] Allergy See Comment Verified 07/25/19 13:14 Sulfa (Sulfonamide Allergy Difficulty Verified 07/25/19 13:14 Antibiotics) Breathing PMH/Surg Hx/FS Hx/Imm Hx Endocrine/Hematology History: Reports: Other Endocrine/Hematological Disorders - psoriasis Denies: Hx Anticoagulant Therapy, Hx Blood Disorders, Hx Diabetes, Hx Thyroid Disease, Hx Unexplained Bleeding Cardiovascular History: Denies: Hx Congestive Heart Failure, Hx Hypertension, Hx Pacemaker/ICD Respiratory History: Denies: Hx Asthma, Hx Chronic Obstructive Pulmonary Disease (COPD) GI History: Reports: Hx Gastroesophageal Reflux Disease, Other GI Disorders Denies: Hx Ulcer History: Reports: Hx Kidney Stones, Other Problems/Disorders - Hx OF KIDNEY STONES, OVARIAN CYSTS Denies: Hx Dialysis, Hx Renal Disease Musculoskeletal History: Reports: Other Musculoskeletal History - psoriasis Denies: Hx Rheumatoid Arthritis, Hx Osteoporosis Sensory History: Reports: Hx Contacts or Glasses Denies: Hx Hearing Aid Opthamlomology History: Reports: Hx Contacts or Glasses Neurological History: Denies: Hx Dementia Psychiatric History: Denies: Hx Autism, Hx Panic Disorder, Hx of Violent Episodes Against Others - Surgical History Surgical History: Yes Surgery Procedure, Year, and Place: 2001 gall bladder removed, t&a - Immunization History Date of Tetanus Vaccine: PT STATES THAT SHE IS UNSURE Date of Influenza Vaccine: 05/2019 Infectious Disease History: No Infectious Disease History: Denies: Hx Clostridium Difficile, Hx Hepatitis, Hx Human Immunodeficiency Virus (HIV), Hx Shingles, Hx Tuberculosis, Hx Known/Suspected VRE, Hx Known/ Suspected VRSA, History Other Infectious Disease, Traveled Outside the [place] in Last 30 Days - Family History Known Family History: Positive: Diabetes Negative: Cardiac Disease - Social History Alcohol Use: Occasionally Hx Substance Use: No Substance Use Type: Reports: None Hx Tobacco Use: Yes Smoking Status (MU): Former Smoker Type: Cigarettes Amount Used/How Often: 2 sig/week Have You Smoked in the Last Year: Yes Review of Systems Positive: Myalgia - right lower extremity throughout the fever to the knee; no pain in the hip or ankle Negative: Bruising Negative: Weakness, Paresthesia, Numbness All Other Systems Reviewed And Are Negative: Yes Physical Exam - Summary Physical Exam Summary: VITAL SIGNS: Reviewed. GENERAL: Patient is a well-developed and nourished female who is lying comfortable in the stretcher. Patient is not in any acute respiratory distress. HEAD AND FACE: No signs of trauma. No ecchymosis, hematomas or skull depressions. No sinus tenderness. EYES: PERRLA, EOMI x 2, No injected conjunctiva, no nystagmus. EARS: Hearing grossly intact. Ear canals and tympanic membranes are within normal limits. MOUTH: Oropharynx within normal limits. NECK: Supple, trachea is midline, no adenopathy, no JVD, no carotid bruit, no c- spine tenderness, neck with full ROM. CHEST: Symmetric, no tenderness at palpation. LUNGS: Clear to auscultation bilaterally. No wheezing or crackles. CVS: Regular rate and rhythm, S1 and S2 present, no murmurs or gallops appreciated. ABDOMEN: Soft, non-tender. No signs of distention. No rebound, no guarding, and no masses palpated. Bowel sounds are normal. EXTREMITIES: Tenderness in the anterior aspect of the right thigh to the knee. No deformity, ecchymosis, or hematomas. Good pulses and good capillary refill. FROM in all major joints, no edema, no cyanosis or clubbing. NEURO: Alert and oriented x 3. No acute neurological deficits. Speech is normal and follows commands. SKIN: Dry and warm. Diffuse rash secondary to her psoriasis. Triage Information Reviewed: Yes Vital Signs On Initial Exam: Initial Vitals Temp Pulse Resp BP Pulse Ox 99.2 F 73 19 168/93 99 07/25/19 13:12 07/25/19 13:12 07/25/19 13:12 07/25/19 13:12 07/25/19 13:12 Vital Signs Reviewed: Yes Procedures - Sedation Patient Received Moderate/Deep Sedation with Procedure: No Diagnostics - Vital Signs Vital Signs Temp Pulse Resp BP Pulse Ox 07/25/19 13:12 99.2 F 73 19 168/93 99 - Laboratory Lab Statement: Any lab studies that have been ordered have been reviewed, and results considered in the medical decision making process. - Radiology Right Femur X-Ray Radiology Interpretation Completed By: Radiologist Summary of Radiographic Findings: Impression: Osteoarthritis. No acute osseous injury. If symptoms persist, recommend repeat imaging. ED physician has reviewed this report. Right Knee X-Ray Radiology Interpretation Completed By: Radiologist Summary of Radiographic Findings: Impression: Osteoarthritis. No acute osseous injury. If symptoms persist, recommend repeat imaging. ED physician has reviewed this report. Re-Evaluation - Re-Evaluation First Eval Re-Evaluation Time: 16:40 Change: Improved Comment: Patient's pain has improved with Oxycodone. We discussed negative x- ray results. She is safe for discharge. Paitent agreeable with plan. Lower Extremity Course/Dx - Course Assessment/Plan: The patient is a 44-year-old female presenting to [facility] [place] emergency department with a chief complaint of pain in the right lower extremity since 07/23/2019. She reports that she fell going down the stairs two days ago, and she is now experiencing pain throughout the right leg in the femur to the knee, but not in the hip or ankle. She denies any numbness or tingling, weakness, or bruising. She is able to apply pressure and ambulate on the leg, but pain is present with these actions. Symptoms currently rated 10/10 in severity. She has taken Tylenol last night without much relief of the pain. Past medical history significant for psoriasis, GERD, kidney stones, cholecystectomy, tonsillectomy and appendectomy. Former smoker, occasional alcohol use, no substance use. Medications reviewed. Allergies noted. Femur and Knee x-ray impression: Osteoarthritis. No acute osseous injury. If symptoms persist, recommend repeat imaging. Patient was given Oxycodone for the pain, and the symptoms improved. I discussed the findings and test results with the patient, and she will be discharged home with follow-up with the primary care physician. The patient is ambulating home without any aid. - Diagnoses Provider Diagnoses: Sprain of knee and leg Discharge ED - Sign-Out/Discharge Documenting (check all that apply): Patient Departure - Patient will be discharged home. - Discharge Plan Condition: Stable Disposition: HOME Prescriptions: oxyCODONE TAB* [Roxycodone TAB 5 mg*] 5 mg PO Q6H PRN #6 tab MDD 4 PRN Reason: Pain - Severe Patient Education Materials: Knee Pain (ED), Leg Pain (ED) Referrals: Urban Gleason MD [Primary Care Provider] - 3 Days Additional Instructions: Please take medications as prescribed. Follow up with your primary care provider in 2-3 days. Return to the emergency department for any new or worsening symptoms. - Billing Disposition and Condition Condition: STABLE Disposition: Home - Attestation Statements Document Initiated by Josephine: Yes Documenting Scribe: Stella Jones Provider For Whom Josephine is Documenting (Include Credential): Dr. Rudy De La Cruz MD Scribe Attestation: Stella Ann scribed for Dr. Rudy De La Cruz MD on 07/25/19 at 2141. Scribe Documentation Reviewed: Yes Provider Attestation: The documentation as recorded by the scribe, Stella Jones accurately reflects the service I personally performed and the decisions made by me, Dr. Rudy De La Cruz MD Status of Josephine Document: Viewed
[2019-07-25] MEDS ORDERED: oxyCODONE TAB* 5 MG TAB PO ONE (15:08)
[2019-07-25 17:02] VITALS: BP 138/88
== END 2019-07-25 17:00 | disposition home or self-care (01) ==
LOC: ED 13:06
DX: S83.91XA Sprain of unspecified site of right knee, initial encounter (principal); W10.9XXA Fall (on) (from) unspecified stairs and steps, initial encounter; Y92.9 Unspecified place or not applicable; M17.11 Unilateral primary osteoarthritis, right knee; K21.9 Gastro-esophageal reflux disease without esophagitis; Z88.1 Allergy status to other antibiotic agents; Z88.5 Allergy status to narcotic agent; Z88.0 Allergy status to penicillin; Z88.2 Allergy status to sulfonamides; Z87.891 Personal history of nicotine dependence
CPT/HCPCS: 99282; A9270-GY

== ENCOUNTER 2019-10-10 11:30 | Emergency (ER) | payer SELFPAY ==
[2019-10-10 11:40] VITALS: BP 146/76
--- NOTE | 2019-10-10 12:00 | UC ---
Skin Complaint HPI - HPI Summary HPI Summary: 3 DAYS OF INCREASING REDNESS, EDEMA AND TENDERNESS OF HER LEFT PINNA. NO FEVER. NO HEARING DEFICIT. PATIENT HAS SEVERE PSORIASIS COVERING 95% OF HER SKIN SURFACES THAT IS FOLLOWED BY DERMATOLOGY. - History of Current Complaint Chief Complaint: UCEar Time Seen by Provider: 10/10/19 11:31 Stated Complaint: EAR PAIN Hx Obtained From: Patient Hx Last Menstrual Period: 08/29/19 Onset/Duration: Gradual Onset, Lasting Days, Still Present Timing: Constant Onset Severity: Moderate Current Severity: Moderate Pain Intensity: 9 Pain Scale Used: 0-10 Numeric Location: Ear (Left) Character: Pain, Redness Aggravating Factor(s): Touch Alleviating Factor(s): Nothing Associated Signs & Symptoms: Positive: Tenderness. Negative: Nausea, Fever, Cough, Throat Tightening - Allergy/Home Medications Allergies/Adverse Reactions: Allergies Allergy/AdvReac Type Severity Reaction Status Date / Time amoxicillin Allergy Rash Verified 10/10/19 11:41 ceftriaxone Allergy Rash And Verified 10/10/19 11:41 Itching ciprofloxacin Allergy Difficulty Verified 10/10/19 11:41 Breathing hydrocodone Allergy Difficulty Verified 10/10/19 11:41 Breathing ketorolac [From Toradol] Allergy See Comment Verified 10/10/19 11:41 Sulfa (Sulfonamide Allergy Difficulty Verified 10/10/19 11:41 Antibiotics) Breathing Home Medications: Home Medications Esomeprazole Magnesium [Nexium 24Hr] 20 mg PO DAILY 02/07/19 [History Confirmed 10/10/19] Ondansetron ODT TAB* [Zofran 4 MG Odt TAB*] 8 mg PO Q6H PRN #12 tab.odt [Rx Confirmed 10/10/19] Triamcinolone 0.1% CREAM (NF) [Kenalog 0.1% Cream (NF)] 1 applic TOPICAL DAILY 09/19/19 [History Confirmed 10/10/19] Doxycycline Monohydrate 1 cap PO BID #14 cap 10/10/19 [Rx] Neomyc/Polym/HC 1% OTIC SUSP* [Cortisporin Otic Susp 1%*] 4 drop LEFT EAR TID # 1 btl 10/10/19 [Rx] PMH/Surg Hx/FS Hx/Imm Hx - Additional Past Medical History Additional PMH: PSORIASIS Other History Of: Negative For: Anticoagulant Therapy - Surgical History Surgical History: Yes Surgery Procedure, Year, and Place: 2001 gall bladder removed, t&a - Family History Known Family History: Positive: Diabetes Negative: Cardiac Disease - Social History Alcohol Use: Occasionally Substance Use Type: Marijuana Substance Use Comment - Amount & Last Used: CBD gummies Smoking Status (MU): Former Smoker Type: Cigarettes Amount Used/How Often: 2 sig/week Have You Smoked in the Last Year: Yes Household Exposure Type: Cigarettes - Immunization History Most Recent Influenza Vaccination: 2015 Most Recent Pneumonia Vaccination: none Review of Systems All Other Systems Reviewed And Are Negative: Yes Constitutional: Positive: Negative Skin: Positive: Other - LEFT PINNA RED, SWOLLEN AND TENDER ENT: Positive: Other - LEFT PINNA RED, SWOLLEN AND TENDER. Negative: Sore Throat Respiratory: Positive: Negative Cardiovascular: Positive: Negative Gastrointestinal: Positive: Negative Physical Exam Triage Information Reviewed: Yes Appearance: Well-Appearing, No Pain Distress, Well-Nourished Vital Signs: Initial Vital Signs Temp 98.2 F 10/10/19 11:36 Pulse 69 10/10/19 11:36 Resp 16 10/10/19 11:36 BP 146/76 10/10/19 11:36 Pulse Ox 100 10/10/19 11:36 Vital Signs Reviewed: Yes Eyes: Positive: Conjunctiva Clear ENT: Positive: Hearing grossly normal, Pharynx normal, TMs normal, Other - LEFT PINNA ERYTHEMATOUS, EDEMATOUS AND TENDER. LEFT EAC NORMAL - NO EDEMA OR DEBRIS Neck: Positive: Supple, Tenderness @ - LEFT ANTERIOR CERVICAL LAD, Enlarged Nodes @ - LEFT ANTERIOR CERVICAL LAD Respiratory: Positive: No respiratory distress, No accessory muscle use Musculoskeletal: Positive: No Edema Neurological: Positive: Alert Psychological: Positive: Age Appropriate Behavior Skin: Positive: Other - LEFT PINNA ERYTHEMATOUS, EDEMATOUS Course/Dx - Course Course Of Treatment: PATIENT'S PRESENTATION IS CONSISTENT WITH A CELLULITIS OF HER LEFT PINNA LIKELY DUE TO 2 BACTERIA ENTERING THROUGH A BREAK IN THE SKIN SECONDARY TO HER SEVERE PSORIASIS. SHE HAS MULTIPLE ANTIBIOTIC ALLERGIES SO WE WILL USE DOXYCYCLINE TWICE DAILY FOR A WEEK. SHE HAS A DERMATOLOGY FOLLOW-UP APPOINTMENT COMING UP IN NOVEMBER. ADVISED TO SEEK REEVALUATION IN THE EMERGENCY ROOM IF SHE IS NOT IMPROVING WITH TREATMENT OVER THE NEXT COUPLE OF DAYS. NO SIGN OF OTITIS MEDIA OR OTITIS EXTERNA AT THIS TIME HOWEVER CORTISPORIN OTIC ALSO PROVIDED FOR PATIENT TO USE IF SHE FEELS SHE IS DEVELOPING A SWIMMER'S EAR. I RECOMMENDED SHE HOLD OFF ON THIS FOR NOW NEOMYCIN WHICH IS A COMPONENT IN CORTISPORIN OTIC CAN BE HIGHLY ALLERGENIC. PT STATES SHE HAS USED NEOSPORIN TOPICALLY IN THE PAST WITHOUT ANY PROBLEMS. - Diagnoses Provider Diagnosis: Cellulitis of left ear Discharge ED - Sign-Out/Discharge Documenting (check all that apply): Patient Departure All imaging exams completed and their final reports reviewed: No Studies - Discharge Plan Condition: Stable Disposition: HOME Prescriptions: Doxycycline Monohydrate 1 cap PO BID #14 cap Patient Education Materials: Cellulitis (ED) Referrals: Urban Gleason MD [Primary Care Provider] - If Needed Additional Instructions: YOUR PRESENTATION IS CONSISTENT WITH A SKIN INFECTION OF YOUR LEFT EAR LIKELY DUE TO BACTERIA ENTERING THROUGH A BREAK IN THE SKIN SECONDARY TO YOUR PSORIASIS. TAKE THE ANTIBIOTICS TWICE DAILY FOR THE FULL 7 DAYS. IF AFTER 48 HOURS ON ANTIBIOTICS YOU'RE NOT IMPROVED OR IF YOU DEVELOP WORSENING PAIN, SWELLING, FEVER, DRAINAGE OR ANY OTHER CONCERNING SYMPTOMS I RECOMMEND YOU GO TO THE EMERGENCY ROOM FOR FURTHER EVALUATION. - Billing Disposition and Condition Condition: STABLE Disposition: Home
== END 2019-10-10 12:09 | disposition home or self-care (01) ==
LOC: UCEAST 11:30
DX: H60.12 Cellulitis of left external ear (principal); L40.9 Psoriasis, unspecified; Z88.1 Allergy status to other antibiotic agents; Z88.5 Allergy status to narcotic agent; Z88.0 Allergy status to penicillin; Z88.2 Allergy status to sulfonamides
CPT/HCPCS: 99212; G0463